=== PATIENT | female | born 1965 | race Caucasian/White ===

== ENCOUNTER 2018-12-28 15:00 | Emergency (ER) | payer MEDICARE, MEDICAID ==
[~2018-12-28] VITALS: Ht 170.2 cm; Wt 65.0 kg
[2018-12-28] MEDS ORDERED: PRAV80TA2 (16:45)
[2018-12-28] MEDS ORDERED: CLON-412 (16:45)
[2018-12-28] MEDS ORDERED: TRAZ-252 (16:45)
[2018-12-28] MEDS ORDERED: OYST500T12 (16:45)
[2018-12-28] MEDS ORDERED: TOPI50TA9 (16:45)
[2018-12-28] MEDS ORDERED: OXYB10TA (16:45)
[2018-12-28] MEDS ORDERED: LEVO112T2 (16:45)
[2018-12-28 18:12] VITALS: BP 165/107
--- NOTE | 2018-12-29 15:30 | ECGEPIP ---
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
== END 2018-12-28 18:15 | disposition home or self-care (01) ==
LOC: M ED 15:00
DX: F43.0 Acute stress reaction (principal); F19.20 Other psychoactive substance dependence, uncomplicated; F32.9 Major depressive disorder, single episode, unspecified; Z88.0 Allergy status to penicillin; Z88.5 Allergy status to narcotic agent; Z88.8 Allergy status to other drugs, medicaments and biological substances; Z88.6 Allergy status to analgesic agent; Z79.899 Other long term (current) drug therapy

== ENCOUNTER 2018-12-31 16:49 | Inpatient (IN) | payer MEDICARE, MEDICAID ==
[~2018-12-31] VITALS: Ht 170.2 cm; Wt 65.5 kg
[~2018-12-31 16:49] MED LIST: CLON-412; LEVO112T2; OXYB10TA; OYST500T12; PRAV80TA2; TOPI50TA9; TRAZ-252
[2018-12-31 17:56] LABS: HEMOGLOBIN 13.5 g/dl (12.0-15.5); MEAN CORPUSCULAR HEMOGLOBIN 31.5 pg (27.0-33.0); MEAN CORPUSCULAR HGB CONC 33.8 g/dl (32.0-36.5); MEAN CORPUSCULAR VOLUME 93.5 fl (80.0-96.0); PLATELET COUNT, AUTOMATED 315 10^3/uL (150-450); RED BLOOD COUNT 4.28 10^6/uL (4.00-5.40)
[2018-12-31 18:26] LABS: AMPHETAMINES LEVEL URINE NEGATIVE (NEGATIVE); BARBITURATES URINE NEGATIVE (NEGATIVE); BENZODIAZEPINES URINE NEGATIVE (NEGATIVE); CANNABINOIDS URINE NEGATIVE (NEGATIVE); COCAINE METABOLITE URINE NEGATIVE (NEGATIVE); METHADONE URINE NEGATIVE (NEGATIVE); OPIATES URINE NEGATIVE (NEGATIVE); PHENCYCLIDINE URINE NEGATIVE (NEGATIVE)
[2018-12-31 18:27] LABS: HCG, SERUM QUALITATIVE NEGATIVE (NEGATIVE)
[2018-12-31 18:53] LABS: ACETAMINOPHEN LEVEL < 2.0 UG/ML (10.0-30.0); ALBUMIN 3.8 GM/DL (3.2-5.2); ALT/SGPT 17 U/L (12-78); BILIRUBIN,DIRECT 0.2 MG/DL (0.0-0.2); BILIRUBIN,TOTAL 0.6 MG/DL (0.2-1.0); BLOOD UREA NITROGEN 14 MG/DL (7-18); CALCIUM LEVEL 8.6 MG/DL (8.5-10.1); CARBON DIOXIDE LEVEL 25 MEQ/L (21-32); CHLORIDE LEVEL 113 MEQ/L (98-107); CREATININE FOR GFR 0.94 MG/DL (0.55-1.30); GLOMERULAR FILTRATION RATE > 60.0 (>51); GLUCOSE, FASTING 75 MG/DL (70-100); POTASSIUM SERUM 4.4 MEQ/L (3.5-5.1); SALICYLATE LEVEL < 1.7 MG/DL (5.0-30.0); SODIUM LEVEL 144 MEQ/L (136-145); THYROID STIMULATING HORMONE 0.567 uIU/ML (0.358-3.740)
[2018-12-31 18:54] LABS: ETHYL ALCOHOL (ETHANOL) < 0.003 % (0.000-0.010)
[2018-12-31] MEDS ORDERED: METOPROLOL SUCC *XL* 25MG TAB (TopROL *XL*) PO ONE (22:00)
[2018-12-31] MEDS ORDERED: METO1TAB32 (22:00)
[2018-12-31] MEDS ORDERED: PRAVASTATIN 20 MG TAB PO ONE (22:00)
[2018-12-31] MEDS ORDERED: traZODone 50 MG TAB PO ONE (22:00)
[2018-12-31] MEDS ORDERED: ACETAMINOPHEN TAB 650MG DOSE (2X325MG) PO ONE (22:45)
[2019-01-01] MEDS ORDERED: CLON-412 PO (04:06)
[2019-01-01] MEDS ORDERED: CALC500T44 PO (04:06)
[2019-01-01] MEDS ORDERED: NEXI40CA PO (04:06)
[2019-01-01] MEDS ORDERED: OXYB10TA PO (04:06)
[2019-01-01] MEDS ORDERED: LISI-542 PO (04:06)
[2019-01-01] MEDS ORDERED: SYNT112T2 PO (04:06)
[2019-01-01] MEDS ORDERED: FLON1SPR (04:06)
[2019-01-01] MEDS ORDERED: PRAV80TA2 PO (04:06)
[2019-01-01] MEDS ORDERED: VOLT1GEL15 TOP (04:06)
[2019-01-01] MEDS ORDERED: GABA-845 PO (04:06)
[2019-01-01] MEDS ORDERED: METO1TAB32 PO (04:06)
[2019-01-01] MEDS ORDERED: TOPI50TA9 PO (04:06)
[2019-01-01] MEDS ORDERED: TRAZ-252 PO (04:06)
--- NOTE | 2019-01-01 05:45 | ECGEPIP ---
[facility] - ED Test Date: 2018-12-31 Pat Name: PARDEEP VELEZ Department: Room: - Gender: Female Radio Program Checker: : 1965 Requested By: MARCO A DONG Order Number: [id number] Reading MD: Sekou Munguia Measurements Intervals Lane Rate: 53 P: 25 TN: 117 QRS: 51 QRSD: 88 T: 20 QT: 471 QTc: 443 Interpretive Statements SINUS BRADYCARDIA WITH SINUS ARRHYTHMIA WITH SHORT TN INTERVAL NSTTW ABNORMALITIES SIMILAR TO 12/28/18 Electronically Signed on 01-01-2019 5:45:12 EDT by Sekou Munguia
[2019-01-01] MEDS: VITAMIN D (CHOLECALCIFEROL) 400 INTERNATIONAL UNITS TAB PO SCH ×2 (09:00→20:32)
[2019-01-01] MEDS: OYSTER SHELL CALCIUM 500 MG TAB PO SCH ×2 (09:00→20:32)
[2019-01-01] MEDS: TOPIRAMATE (TopAMAX) 25 MG TAB PO SCH ×2 (09:00→20:31)
[2019-01-01] MEDS ORDERED: traZODone 50 MG TAB PO PRN (12:15)
[2019-01-01] MEDS ORDERED: FLUTICASONE PROP 0.05% NASAL SPRAY 16 GM (FLONASE) PRN (12:15)
[2019-01-01] MEDS ORDERED: MOM 30ML SUSPENSION UDC PO PRN (12:15)
[2019-01-01] MEDS ORDERED: MAALOX 30 ML SUSP *UDC PO PRN (12:15)
[2019-01-01 13:42] VITALS: BP 141/94
[2019-01-01] MEDS: GABAPENTIN 400 MG CAP PO SCH ×2 (15:47→20:31)
[2019-01-01] MEDS: PANTOPRAZOLE 40MG TAB (PROTONIX) PO SCH (16:12)
[2019-01-01] MEDS: oxyBUTYnin *DITROPAN XL* 5 MG TABCR PO SCH (16:13)
[2019-01-01] MEDS: LEVOTHYROXINE 112MCG TABLET (0.112MG) PO SCH (16:13)
[2019-01-01] MEDS: cloNIDine 0.1 MG TAB PO SCH (16:13)
--- NOTE | 2019-01-01 17:01 | HPEPDOC ---
General Date of Admission Jan 01, 2019 at 12:15 Date of Service: Jan 01, 2019 Attending Physician: NALDO QUEEN MD Chief Complaint The patient is a 53-year-old female admitted with a reason for visit of Unspecified Depressive Disorder. History of Present Illness Aaron Pollock is a 53-year-old female, past medical history significant for depression and prior suicidal ideation.. Patient was admitted on account of suicidal ideation. Attempts to obtain information concerning history of presenting illness from patient was unsuccessful. She was able to tell me she was hospitalized due to polysubstance abuse and withdrawal problems. Patient answered affirmative to every question about review of systems. She admits to chills, denies fever, complains of abdominal pain, anorexia, weakness Home Medications Scheduled Calcium Carbonate/Vitamin D3 (Calcium 500-Vit D3 200 Tablet) 1 Each Tablet, 1 TAB PO BID, (Reported) Clonidine HCl (Clonidine HCl) 0.1 Mg Tablet, 0.1 MG PO DAILY, (Reported) Esomeprazole Magnesium (Nexium) 40 Mg Capsule.dr, 40 MG PO DAILY, (Reported) Gabapentin (Gabapentin) 400 Mg Capsule, 400 MG PO BID, (Reported) Levothyroxine Sodium (Synthroid) 112 Mcg Tablet, 112 MCG PO DAILY, (Reported) Lisinopril (Lisinopril) 5 Mg Tablet, 5 MG PO QHS, (Reported) Metoprolol Succinate (Metoprolol Succinate) 25 Mg Tab.er.24h, 25 MG PO QHS, (Reported) Oxybutynin Chloride (Oxybutynin Chloride ER) 10 Mg Tab.er.24, 10 MG PO DAILY, (Reported) Pravastatin Sodium (Pravastatin Sodium) 80 Mg Tablet, 80 MG PO QHS, (Reported) Topiramate (Topiramate) 50 Mg Tablet, 50 MG PO BID, (Reported) Trazodone HCl (Trazodone HCl) 50 Mg Tablet, 75 MG PO QHS, (Reported) Scheduled PRN Diclofenac Sodium (Voltaren) 100 Gm Gel..gram., 1 DOSE TOP QID PRN for PAIN, (Reported) USES ON HANDS, HIPS, AND KNEES Fluticasone Propionate (Flonase Allergy Relief) 9.9 Ml [place].susp, 2 SPRAY NA DAILY PRN for NASAL CONGESTION, (Reported) Allergies Coded Allergies: Penicillins (Verified Allergy, Intermediate, hives, 12/28/18) fentanyl (Verified Allergy, Mild, itchy, 12/28/18) hydromorphone (Verified Allergy, Mild, itchy, 12/28/18) morphine (Verified Allergy, Mild, itchy, 12/28/18) NSAIDS (Non-Steroidal Anti-Inflamma (Verified Adverse Reaction, Intermediate, gi bleed, 12/28/18) aspirin (Verified Adverse Reaction, Intermediate, gi bleed, 12/28/18) celecoxib (Verified Adverse Reaction, Intermediate, gi bleed, 12/28/18) codeine (Verified Adverse Reaction, Mild, upset stomach, 12/28/18) methadone (Verified Adverse Reaction, Mild, confusion, 12/28/18) Past Medical History Medical History Hypertension Hypothyroidism Depression Anxiety Surgical History Bilateral knee surgery Appendectomy. Shoulder surgery Dorsal stimulator placement Social History * Smoker: Denies Alcohol: Denies Drugs: denies A-FIB/CHADSVASC A-FIB History Current/History of A-Fib/PAF?: No Current PO Anticoag Therapy: No Review of Systems Other systems Review of history was very questionable given patient's mental state Physical Examination Other physical findings GENERAL: NAD SKIN : Warm, dry intact HEENT: Atraumatic, normocephalic, PERRL, moist mucous membrane CARDIOVASCULAR: Regular rate and rhythm, S1S2, no JVD, no edema, distal pulses + and palpable RESP: CTAB, no accessory muscle use noted ABDOMEN: BS+ non distended +tender MS: no joint deformities NEURO: Alert to self and place, CN2-12 grossly intact PSYCH: no anxiety or agitation Vital Signs Vital Signs Date Time Temp Pulse Resp B/P (MAP) Pulse Ox O2 Delivery O2 Flow Rate FiO2 01/01/19 16:13 138/98 01/01/19 13:42 99.0 81 18 98 01/01/19 12:40 Room Air Laboratory Data Labs 24H Laboratory Tests 2 12/31/18 17:32: Nucleated Red Blood Cells % (auto) 0.0, Anion Gap 6L, Glomerular Filtration Rate > 60.0, Calcium Level 8.6, Aspartate Amino Transf (AST/SGOT) 10, Alanine Aminotransferase (ALT/SGPT) 17, Alkaline Phosphatase 38L, Total Bilirubin 0.6, Direct Bilirubin 0.2, Total Protein 7.0, Albumin 3.8, Albumin/Globulin Ratio 1.19, Thyroid Stimulating Hormone (TSH) 0.567, Human Chorionic Gonadotropin, Q ual NEGATIVE, Salicylates Level < 1.7L, Acetaminophen Level < 2.0L, Ethyl Alcohol Level < 0.003 12/31/18 17:41: Urine Amphetamines Screen NEGATIVE, Urine Benzodiazepines Screen NEGATIVE, Urine Opiates Screen NEGATIVE, Urine Methadone Screen NEGATIVE, Urine Barbiturates Screen NEGATIVE, Urine Phencyclidine Screen NEGATIVE, Urine Cocaine Metabolite Screen NEGATIVE, Urine Cannabinoids Screen NEGATIVE CBC/BMP Laboratory Tests 12/31/18 17:32 Red Blood Count 4.28, Mean Corpuscular Volume 93.5, Mean Corpuscular Hemoglobin 31.5, Mean Corpuscular Hemoglobin Concent 33.8, Red Cell Distribution Width 12.5 Assessment/Plan Hypertension Hypothyroidism Chronic back pain. Suicidal ideation Assessment and plan Patient has underlying medical issues with hypertension, hypothyroidism, chronic back pain Out of underlying comorbidities, stable at this time requiring no acute intervention for management Management of primary mental health problems by primary team. Reconsult medical team as needed Plan / VTE VTE Prophylaxis Ordered?: No VTE Exclusion Mechanical Proph: Low Risk for VTE CHERYL SOLIS BUCKLE ASSEMBLER Jan 01, 2019 17:01
[2019-01-01 18:11] VITALS: BP 128/83
[2019-01-01] MEDS: PRAVASTATIN 20 MG TAB PO SCH (20:31)
[2019-01-01] MEDS: METOPROLOL SUCC *XL* 25MG TAB (TopROL *XL*) PO SCH (20:32)
[2019-01-01] MEDS: LISINOPRIL 5 MG TAB PO SCH (20:33)
[2019-01-01] MEDS ORDERED: GABAPENTIN 400 MG CAP PO SCH (21:00)
[2019-01-02] MEDS: LEVOTHYROXINE 112MCG TABLET (0.112MG) PO SCH ×2 (06:00→06:56)
[2019-01-02 06:32] VITALS: BP 113/70
[2019-01-02] MEDS: cloNIDine 0.1 MG TAB PO SCH (08:53)
[2019-01-02] MEDS: OYSTER SHELL CALCIUM 500 MG TAB PO SCH ×2 (08:53→21:18)
[2019-01-02] MEDS: GABAPENTIN 400 MG CAP PO SCH ×2 (08:53→21:18)
[2019-01-02] MEDS: oxyBUTYnin *DITROPAN XL* 5 MG TABCR PO SCH (08:53)
[2019-01-02] MEDS: VITAMIN D (CHOLECALCIFEROL) 400 INTERNATIONAL UNITS TAB PO SCH ×2 (08:54→21:18)
[2019-01-02] MEDS: TOPIRAMATE (TopAMAX) 25 MG TAB PO SCH ×2 (08:54→21:19)
[2019-01-02] MEDS: PANTOPRAZOLE 40MG TAB (PROTONIX) PO SCH (08:54)
[2019-01-02] MEDS ORDERED: FLUoxetine 10 MG CAP PO ONE (11:15)
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
[2019-01-02] MEDS: hydrOXYzine 50 MG TAB PO PRN (17:53)
[2019-01-02 18:00] VITALS: BP 131/70
[2019-01-02] MEDS: traZODone 50 MG TAB PO SCH (21:17)
[2019-01-02] MEDS: PILL CUTTER 1 EACH XX PRN (21:17)
[2019-01-02] MEDS: PRAVASTATIN 20 MG TAB PO SCH (21:18)
[2019-01-02] MEDS: METOPROLOL SUCC *XL* 25MG TAB (TopROL *XL*) PO SCH (21:19)
[2019-01-02] MEDS: LISINOPRIL 5 MG TAB PO SCH (21:20)
[2019-01-03] MEDS: LEVOTHYROXINE 112MCG TABLET (0.112MG) PO SCH ×2 (06:00→06:53)
[2019-01-03 06:33] VITALS: BP 102/80
[2019-01-03] MEDS: PILL CUTTER 1 EACH XX PRN (08:35)
[2019-01-03] MEDS: VITAMIN D (CHOLECALCIFEROL) 400 INTERNATIONAL UNITS TAB PO SCH ×2 (08:35→21:31)
[2019-01-03] MEDS: OYSTER SHELL CALCIUM 500 MG TAB PO SCH ×2 (08:36→21:30)
[2019-01-03] MEDS: FLUoxetine 10 MG CAP PO SCH (08:36)
[2019-01-03] MEDS: PANTOPRAZOLE 40MG TAB (PROTONIX) PO SCH (08:36)
[2019-01-03] MEDS: TOPIRAMATE (TopAMAX) 25 MG TAB PO SCH ×2 (08:36→21:30)
[2019-01-03] MEDS: cloNIDine 0.1 MG TAB PO SCH (08:36)
[2019-01-03] MEDS: GABAPENTIN 400 MG CAP PO SCH ×2 (08:36→21:30)
[2019-01-03] MEDS: oxyBUTYnin *DITROPAN XL* 5 MG TABCR PO SCH (08:36)
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
[2019-01-03 10:17] LABS: ALBUMIN 3.5 GM/DL (3.2-5.2); ALT/SGPT 15 U/L (12-78); BILIRUBIN,TOTAL 0.6 MG/DL (0.2-1.0); BLOOD UREA NITROGEN 12 MG/DL (7-18); CALCIUM LEVEL 8.6 MG/DL (8.5-10.1); CARBON DIOXIDE LEVEL 25 MEQ/L (21-32); CHLORIDE LEVEL 110 MEQ/L (98-107); CHOLESTEROL LEVEL 119 MG/DL (<200); CHOLESTEROL RISK RATIO 2.428 (<5); CREATININE FOR GFR 0.84 MG/DL (0.55-1.30); GLOMERULAR FILTRATION RATE > 60.0 (>51); GLUCOSE, FASTING 84 MG/DL (70-100); HDL CHOLESTEROL 49 MG/DL (>40); LDL CHOLESTEROL 47 MG/DL (<100); NON-HDL-C 70 MG/DL; POTASSIUM SERUM 3.8 MEQ/L (3.5-5.1); SODIUM LEVEL 144 MEQ/L (136-145); TOTAL PROTEIN 6.5 GM/DL (6.4-8.2); TRIGLYCERIDES LEVEL 113 MG/DL (<150)
[2019-01-03 18:00] VITALS: BP 117/73
[2019-01-03] MEDS: QUEtiapine FUMARATE 25 MG TAB PO SCH (21:30)
[2019-01-03] MEDS: METOPROLOL SUCC *XL* 25MG TAB (TopROL *XL*) PO SCH (21:30)
[2019-01-03] MEDS: PRAVASTATIN 20 MG TAB PO SCH (21:30)
[2019-01-03] MEDS: traZODone 50 MG TAB PO SCH (21:31)
[2019-01-03] MEDS: LISINOPRIL 5 MG TAB PO SCH (21:31)
[2019-01-04] MEDS: LEVOTHYROXINE 112MCG TABLET (0.112MG) PO SCH (06:42)
[2019-01-04 06:49] VITALS: BP 108/68
[2019-01-04] MEDS: PANTOPRAZOLE 40MG TAB (PROTONIX) PO SCH (08:59)
[2019-01-04] MEDS: GABAPENTIN 400 MG CAP PO SCH ×2 (08:59→20:48)
[2019-01-04] MEDS: FLUoxetine 10 MG CAP PO SCH (08:59)
[2019-01-04] MEDS: PILL CUTTER 1 EACH XX PRN (08:59)
[2019-01-04] MEDS: TOPIRAMATE (TopAMAX) 25 MG TAB PO SCH ×2 (08:59→20:49)
[2019-01-04] MEDS: oxyBUTYnin *DITROPAN XL* 5 MG TABCR PO SCH (09:00)
[2019-01-04] MEDS: VITAMIN D (CHOLECALCIFEROL) 400 INTERNATIONAL UNITS TAB PO SCH ×2 (09:00→20:49)
[2019-01-04] MEDS: OYSTER SHELL CALCIUM 500 MG TAB PO SCH ×2 (09:00→20:48)
[2019-01-04] MEDS: cloNIDine 0.1 MG TAB PO SCH (09:12)
--- NOTE | 2019-01-04 10:25 | MHIPNPDOC ---
[facility] Progress Note Progress Note DATE OF SERVICE: 01/04/19 HISTORY: Patient is a 53 -year-old , female, with a history of depression, substance abuse, and PTSD (per pt) and no previous admission [facility] who was brought to [facility] by state police after she told officer she needed help b/c she was suicidal per ED. Pt stated in ED that she has been depressed since the of her close friend/neighbor who in his apt in 2016 and was not found until 12 days later even though pt states she asked the landlord to check on him multiple times. States she came to [facility] ED on 12/28/18 and wanted help but "didn't say the right things" to get the help she wanted per ED. Pt stated in ED that she was at [facility] earlier in morning on the day seen in [facility] ED and was treated for dehydration with IV fluids then d/c. Pt stated she was walk from hospital to her aunts house and saw a state physics technical officer and decided to approach him and tell him she needed help and was suicidal per ED. Pt stated in ED that she felt her psychiatric meds weren't beneficial so she stopped her xanax, oxycodone, and paxil on the own w/o telling her provider at [facility]. Stated she was d/c by her therapist at [facility] earlier in December due to being told over the phone she was "too complicated" for the therapist w/o referral to another therapist per ED. She endorsed depression for months, pain medication abuse, and self starvation due to ther being "nothing to live for" and poor appetite in the ED. History gathered from Chart Review as pt not talk to me even though asked multiple times. VITAL SIGNS: See below. NEW TEST RESULTS: See below. ECG on admission: SINUS BRADYCARDIA WITH SINUS ARRHYTHMIA WITH SHORT HI INTERVAL NSTTW ABNORMALITIES CURRENT MEDICATIONS: See below. MENTAL STATUS EXAMINATION: General Appearance: well groomed, appears stated age Build: average, tall Demeanor: more withdrawn, preoccupied, fatigued Eye Contact: fair Activity: slowed Behavior: withdrawn, more psychomotor retardation Speech: slowed and slow to respond, minimal response, mostly just shake's head no when asked if she will eating or drink something Mood: very depressed Mood depressed Affect: very constricted, flat, inappropriate, psychomotor retardation, anhedonia, avolition Thought Process: slow, linear, illogical w/thought blocking and internal thought preoccupation especially regarding eating Thought Content (Delusions): denies hallucinations and delusions Thought Content (Other): thought block and preoccupation Thought Content (Aggressive): none reported Perception (Hallucinations): denies AVH Perception (Other): none reported Cognition (Impairment of): slowed Cognition(Intelligence Est.): average but functioning currently below average secondary thought blocking and preoccupation, starvation Oriented: Awake, Alert, Oriented times three Insight: very poor Judgment: very Poor Psychosis: denies DIAGNOSES: Major depressive d/o recurrent severe hx of opiate and benzodiazepine abuse R/O paxil withdrawal R/O eating d/o unspecified/anorexia nervosa ASSESSMENT:Pt seen and only nods head no when asked if she will start to eat some. Per nurse pt has only eaten a few bits of salad and a few sips of water since admission. Advised pt that will provide her with boost shakes for nutrition and she must drink as much as she can of most of the shakes or will have to eventually transfer her to medical floor for NG tube feedings that she will not be able to control as she has no capacity to make medical decisions for her self secondary poor cognitive status due to prolonged self starvation with thoughts of wanting to . Pt's has very low energy, cognitive ability, increased fatigue, very poor insight and judgement secondary prolonged starvation. Per treatment team pt has a family member with anorexia nervosa. She also stopped her paxil abruptly and now feels very depressed with continue passive SI thoughts of dying and wanting to although dose states she has a dog to live for when asked. Endorses psychomotor retardation, thought blocking, thought preoccupation (takes along time to understand what I've said or asked her and then respond due to overwhelming thoughts in her head), and fear of eati ng and gaining wt as wt lose has taken pressure and pain off her joints. Advised pt that I started her on prozac yesterday as it is a long acting, activating antidepressant, and advised her will start her on seroquel for improvement in thought preoccupation and appetite. MANAGEMENT PLAN: continue plan. pt to have follow-up with medicine for starvation affecting physical health. Nutrition consult for boost shakes tid. medications: topomax 50mg bid gabapentin 400mg bid trazodone 75mg qhs prn insomnia prozac 10mg daily vistaril 50mg q6hr prn anxiety. TIME SPENT: 30 minutes. Vital Signs Vital Signs Date Time Temp Pulse Resp B/P (MAP) Pulse Ox O2 Delivery O2 Flow Rate FiO2 01/04/19 09:12 120/89 01/04/19 06:49 98.5 59 12 01/01/19 13:42 98 01/01/19 12:40 Room Air Laboratory Data 24H Labs Laboratory Tests 2 01/03/19 09:33: Anion Gap 9, Glomerular Filtration Rate > 60.0, Blood Urea Nitrogen 12, Creatinine 0.84, Sodium Level 144, Potassium Level 3.8, Chloride Level 110H, Carbon Dioxide Level 25, Calcium Level 8.6, Aspartate Amino Transf (AST/SGOT) 6L, Alanine Aminotransferase (ALT/SGPT) 15, Alkaline Phosphatase 36L, Total Bilirubin 0.6, Triglycerides Level 113, LDL Cholesterol 47, Total Protein 6.5, Albumin 3.5, Albumin/Globulin Ratio 1.17, Total Cholesterol 119, Non-HDL Cholesterol (LDL + VLDL) 70, Total HDL Cholesterol 49, Cholesterol/HDL Ratio 2. 428 CBC/BMP Laboratory Tests 01/03/19 09:33 Calcium Level 8.6, Aspartate Amino Transf (AST/SGOT) 6 L, Alanine Aminotransferase (ALT/SGPT) 15, Alkaline Phosphatase 36 L, Total Bilirubin 0.6, Triglycerides Level 113, LDL Cholesterol 47, Total Protein 6.5, Albumin 3.5 Current Medications Current Medications Acetaminophen (Tylenol Tab) 650 mg Q6HP PRN PO HEADACHE or DISCOMFORT; Start 01/01/19 at 12:15 Al Hydrox/Mg Hydrox/Simethicone (Mylanta) 30 ml Q4HP PRN PO HEARTBURN/INDIGESTION; Start 01/01/19 at 12:15 Calcium Carbonate (Oscal) 500 mg BID PO Last administered on 01/04/19at 09:00; Start 01/01/19 at 09:00 Clonidine HCl (Catapres) 0.1 mg DAILY PO Last administered on 01/04/19at 09:12; Start 01/01/19 at 09:00 Fluoxetine HCl (PROzac) 10 mg DAILY PO Last administered on 01/04/19at 08:59; Start 01/03/19 at 09:00 Fluticasone Propionate (Flonase 0.05% Nasal [place]) 2 spray DAILY PRN NA NASAL CONGESTION; Start 01/01/19 at 12:15 Gabapentin (Neurontin) 400 mg BID PO Last administered on 01/04/19 08:59; Start 01/01/19 at 09:00 Gabapentin (Neurontin) 400 mg BID PO ; Start 01/01/19 at 21:00; Stop 01/01/19 at 21:00; Status DC Home Med (Med Rec Complete!) ASDIRECTED XX ; Start 01/01/19 at 04:15; Stop 01/01/19 at 04:16; Status DC Hydroxyzine HCl (Atarax) 50 mg Q6HP PRN PO ANXIETY/AGITATION Last administered on 01/02/19 17:53; Start 01/02/19 at 11:15 Levothyroxine Sodium (Synthroid) 112 mcg DAILY@0600 PO Last administered on 01/04/19 06:42; Start 01/01/19 at 06:00 Lisinopril (Prinivil) 5 mg QHS PO Last administered on 01/03/19 21:31; Start 01/01/19 at 21:00 Magnesium Hydroxide (Milk Of Magnesia) 30 ml DAILYPRN PRN PO CONSTIPATION; Start 01/01/19 at 12:15 Metoprolol Succinate (TopROL XL) 25 mg QHS PO Last administered on 01/03/19 21:30; Start 01/01/19 at 21:00 Oxybutynin Chloride (Ditropan Xl) 10 mg DAILY PO Last administered on 01/04/19 09:00; Start 01/01/19 at 09:00 Pantoprazole Sodium (Protonix) 40 mg DAILY PO Last administered on 01/04/19 08:59; Start 01/01/19 at 09:00 Pravastatin Sodium (Pravachol) 80 mg QHS PO Last administered on 01/03/19 21:30; Start 01/01/19 at 21:00 Quetiapine Fumarate (SEROquel) 25 mg QHS PO Last administered on 01/03/19 21:30; Start 01/03/19 at 21:00 Topiramate (TopAMAX) 50 mg BID PO Last administered on 01/04/19 08:59; Start 01/01/19 at 09:00 Trazodone HCl (Desyrel) 50 mg QHSP PRN PO INSOMNIA Last administered on 01/01/19at 20:32; Start 01/01/19 at 12:15; Stop 01/02/19 at 11:15; Status DC Trazodone HCl (Desyrel) 75 mg QHS PO Last administered on 01/03/19at 21:31; Start 01/02/19 at 21:00 Vitamin D (Vitamin D) 200 units BID PO Last administered on 01/04/19at 09:00; Start 01/01/19 at 09:00 Allergies Coded Allergies: Penicillins (Verified Allergy, Intermediate, hives, 12/28/18) fentanyl (Verified Allergy, Mild, itchy, 12/28/18) hydromorphone (Verified Allergy, Mild, itchy, 12/28/18) morphine (Verified Allergy, Mild, itchy, 12/28/18) NSAIDS (Non-Steroidal Anti-Inflamma (Verified Adverse Reaction, Intermediate, gi bleed, 12/28/18) aspirin (Verified Adverse Reaction, Intermediate, gi bleed, 12/28/18) celecoxib (Verified Adverse Reaction, Intermediate, gi bleed, 12/28/18) codeine (Verified Adverse Reaction, Mild, upset stomach, 12/28/18) methadone (Verified Adverse Reaction, Mild, confusion, 12/28/18) SUNSHINE CADET DO Jan 04, 2019 9:31 am
[2019-01-04 18:07] VITALS: BP 108/73
--- NOTE | 2019-01-04 19:13 | IPNPDOC ---
Subjective Date Seen The patient was seen on 01/04/19. Subjective Chief Complaint/HPI 53f admitted to [facility] for depression and ?psychosis, hx of thyroid, htn, and esophageal motility disorder. Asked to follow up as pt is refusing to eat or drink. Pt seen in her room, in bed with a tray of food in front of her. Not making eye contact. Answering questions occasionally. When I ask she does not outright refuse to eat or drink, but tells me the food doesnt taste good and it is hard to swallow. When asked if it would help to have different options or softer foods she declines. General: Reports: ROS Unobtainable Objective Physical Examination General Exam: Positive: Alert, Other (very thin); Negative: Cooperative ENT Exam: Negative: Mucous membr. moist/pink Chest Exam: Positive: Clear to auscultation, Normal air movement Heart Exam: Positive: Rate Normal, Normal S1, Normal S2, Murmurs Abdomen Exam: Positive: Normal bowel sounds, Soft; Negative: Tenderness Extremity Exam: Positive: Normal pulses; Negative: Clubbing, Cyanosis, Edema Skin Exam: Negative: Rash, Breakdown Neuro Exam: Positive: Normal Gait, Normal Speech, Cranial Nerves 3-12 NL, Reflexes 2+ Psych Exam: Positive: Oriented x 3, Other (hesitant to answer questions, suspicious); Negative: Mental status NL, Mood NL Assessment /Plan Assessment 53f admitted for depression depression/psychosis per primary psych team thyroid continue synthroid at current dose stable htn can continue clonidine and toprol would hold lisinopril and avoid diuretics while she is not drinking much poor oral intake seems to be more psychiatric than from a swallowing issue as she is unwilling to try labs drawn yesterday without significant dehydration or protein malnutrition I would not suggest hydration/nutriton via iv or ng tube as of yet would continue to monitor her intake, weight, and CMP every few days if labs become significantly deranged or clinical status changes (hypotension, tachycardia, mental status changes) then would consider Plan/VTE VTE Prophylaxis Ordered?: No VTE Exclusion Mechanical Proph: Low Risk for VTE VS, I&O, 24H, Fishbone Vital Signs/I&O Vital Signs Date Time Temp Pulse Resp B/P (MAP) Pulse Ox O2 Delivery O2 Flow Rate FiO2 01/04/19 18:07 98.6 92 16 108/73 (85) 01/01/19 13:42 98 01/01/19 12:40 Room Air PAULETTE BOCANEGRA MD Jan 04, 2019 19:13
[2019-01-04] MEDS: traZODone 50 MG TAB PO SCH (20:49)
[2019-01-04] MEDS: QUEtiapine FUMARATE 25 MG TAB PO SCH (20:49)
[2019-01-04] MEDS: PRAVASTATIN 20 MG TAB PO SCH (20:49)
[2019-01-04] MEDS: METOPROLOL SUCC *XL* 25MG TAB (TopROL *XL*) PO SCH (20:56)
[2019-01-05] MEDS: LEVOTHYROXINE 112MCG TABLET (0.112MG) PO SCH (05:52)
[2019-01-05 06:36] VITALS: BP 112/80
--- NOTE | 2019-01-05 09:57 | MHIPNPDOC ---
[facility] Progress Note Progress Note DATE OF SERVICE: 01/05/19 HISTORY: Patient is a 53 -year-old , female, with a history of depression, substance abuse, and PTSD (per pt) and no previous admission [facility] who was brought to [facility] by state police after she told officer she needed help b/c she was suicidal per ED. Pt stated in ED that she has been depressed since the of her close friend/neighbor who in his apt in 2016 and was not found until 12 days later even though pt states she asked the landlord to check on him multiple times. States she came to [facility] ED on 12/28/18 and wanted help but "didn't say the right things" to get the help she wanted per ED. Pt stated in ED that she was at [facility] earlier in morning on the day seen in [facility] ED and was treated for dehydration with IV fluids then d/c. Pt stated she was walk from hospital to her aunts house and saw a state enforcement safety officer and decided to approach him and tell him she needed help and was suicidal per ED. Pt stated in ED that she felt her psychiatric meds weren't beneficial so she stopped her xanax, oxycodone, and paxil on the own w/o telling her provider at [facility]. Stated she was d/c by her therapist at [facility] earlier in December due to being told over the phone she was "too complicated" for the therapist w/o referral to another therapist per ED. She endorsed depression for months, pain medication abuse, and self starvation due to ther being "nothing to live for" and poor appetite in the ED. History gathered from Chart Review as pt not talk to me even though asked multiple times. VITAL SIGNS: See below. NEW TEST RESULTS: See below. ECG on admission: SINUS BRADYCARDIA WITH SINUS ARRHYTHMIA WITH SHORT IN INTERVAL NSTTW ABNORMALITIES CURRENT MEDICATIONS: See below. MENTAL STATUS EXAMINATION: General Appearance: well groomed, appears stated age Build: average, tall Demeanor: more withdrawn, preoccupied, fatigued Eye Contact: fair Activity: slowed Behavior: withdrawn, more psychomotor retardation Speech: slowed and slow to respond, minimal response, mostly just shake's head no when asked if she will eating or drink something Mood: very depressed Mood depressed Affect: very constricted, flat, inappropriate, psychomotor retardation, anhedonia, avolition Thought Process: slow, linear, illogical w/thought blocking and internal thought preoccupation especially regarding eating Thought Content (Delusions): denies hallucinations and delusions Thought Content (Other): thought block and preoccupation Thought Content (Aggressive): none reported Perception (Hallucinations): denies AVH Perception (Other): none reported Cognition (Impairment of): slowed Cognition(Intelligence Est.): average but functioning currently below average secondary thought blocking and preoccupation, starvation Oriented: Awake, Alert, Oriented times three Insight: very poor Judgment: very Poor Psychosis: denies DIAGNOSES: Major depressive d/o recurrent severe hx of opiate and benzodiazepine abuse R/O paxil withdrawal R/O eating d/o unspecified/anorexia nervosa ASSESSMENT:Pt seen and states "everyone is messing with my head... asking too many questions" while holding a menu sheet somewhat filled out. She only nods head no when asked if she will start to eat some. Appears to have possibly ea ten a few bits of pudding and drank a few sips of juice this morning. Per nurse pt has only eaten very, very little. Otherwise no change from yesterday's note: "Pt also has boost shakes for nutrition and she must drink as much as she can of most of the shakes or will have to eventually transfer her to medical floor for NG tube feedings that she will not be able to control as she has no capacity to make medical decisions for her self secondary poor cognitive status due to prolonged self starvation with thoughts of wanting to . Pt's has very low energy, cognitive ability, increased fatigue, very poor insight and judgement secondary prolonged starvation. Per treatment team pt has a family member with anorexia nervosa." She continues to endorse severe depression with continue passive SI thoughts of dying and wanting to although dose states she has a dog to live for when asked. Endorses psychomotor retardation, thought blocking, thought preoccupation (takes along time to understand what I've said or asked her and then respond due to overwhelming thoughts in her head), and fear of eating and gaining wt as wt lose has taken pressure and pain off her joints. Advised pt that I started her on prozac yesterday as it is a long acting, activating antidepressant, and advised her will start her on seroquel for improvement in thought preoccupation and appetite. MANAGEMENT PLAN: continue plan. pt to have follow-up with medicine for starvation affecting physical health. d/c topomax as has a side effect of decr ease appetite. medications: topomax 50mg bid gabapentin 400mg bid trazodone 75mg qhs prn insomnia prozac 10mg daily vistaril 50mg q6hr prn anxiety. boost shakes tid TIME SPENT: 30 minutes. Vital Signs Vital Signs Date Time Temp Pulse Resp B/P (MAP) Pulse Ox O2 Delivery O2 Flow Rate FiO2 01/05/19 06:36 97.7 95 18 112/80 (91) 01/01/19 13:42 98 01/01/19 12:40 Room Air Current Medications Current Medications Acetaminophen (Tylenol Tab) 650 mg Q6HP PRN PO HEADACHE or DISCOMFORT; Start 01/01/19 at 12:15 Al Hydrox/Mg Hydrox/Simethicone (Mylanta) 30 ml Q4HP PRN PO HEARTBURN/INDIGESTION; Start 01/01/19 at 12:15 Calcium Carbonate (Oscal) 500 mg BID PO Last administered on 01/04/19at 20:48; Start 01/01/19 at 09:00 Clonidine HCl (Catapres) 0.1 mg DAILY PO Last administered on 01/04/19at 09:12; Start 01/01/19 at 09:00 Fluoxetine HCl (PROzac) 10 mg DAILY PO Last administered on 01/04/19at 08:59; Start 01/03/19 at 09:00 Fluticasone Propionate (Flonase 0.05% Nasal [place]) 2 spray DAILY PRN NA NASAL CONGESTION; Start 01/01/19 at 12:15 Gabapentin (Neurontin) 400 mg BID PO Last administered on 01/04/19at 20:48; Start 01/01/19 at 09:00 Gabapentin (Neurontin) 400 mg BID PO ; Start 01/01/19 at 21:00; Stop 01/01/19 at 21:00; Status DC Home Med (Med Rec Complete!) ASDIRECTED XX ; Start 01/01/19 at 04:15; Stop 01/01/19 at 04:16; Status DC Hydroxyzine HCl (Atarax) 50 mg Q6HP PRN PO ANXIETY/AGITATION Last administered on 01/02/19at 17:53; Start 01/02/19 at 11:15 Levothyroxine Sodium (Synthroid) 112 mcg DAILY@0600 PO Last administered on 01/05/19 05:52; Start 01/01/19 at 06:00 Lisinopril (Prinivil) 5 mg QHS PO Last administered on 01/03/19 21:31; Start 01/01/19 at 21:00; Stop 01/04/19 at 19:09; Status DC Magnesium Hydroxide (Milk Of Magnesia) 30 ml DAILYPRN PRN PO CONSTIPATION; Start 01/01/19 at 12:15 Metoprolol Succinate (TopROL XL) 25 mg QHS PO Last administered on 01/04/19 20:56; Start 01/01/19 at 21:00 Oxybutynin Chloride (Ditropan Xl) 10 mg DAILY PO Last administered on 01/04/19 09:00; Start 01/01/19 at 09:00 Pantoprazole Sodium (Protonix) 40 mg DAILY PO Last administered on 01/04/19 08:59; Start 01/01/19 at 09:00 Pravastatin Sodium (Pravachol) 80 mg QHS PO Last administered on 01/04/19 20:49; Start 01/01/19 at 21:00 Quetiapine Fumarate (SEROquel) 25 mg QHS PO Last administered on 01/04/19 20:49; Start 01/03/19 at 21:00 Topiramate (TopAMAX) 50 mg BID PO Last administered on 01/04/19 20:49; Start 01/01/19 at 09:00 Trazodone HCl (Desyrel) 50 mg QHSP PRN PO INSOMNIA Last administered on 01/01/19 20:32; Start 01/01/19 at 12:15; Stop 01/02/19 at 11:15; Status DC Trazodone HCl (Desyrel) 75 mg QHS PO Last administered on 01/04/19 20:49; Start 01/02/19 at 21:00 Vitamin D (Vitamin D) 200 units BID PO Last administered on 01/04/19 20:49; Start 01/01/19 at 09:00 Allergies Coded Allergies: Penicillins (Verified Allergy, Intermediate, hives, 12/28/18) fentanyl (Verified Allergy, Mild, itchy, 12/28/18) hydromorphone (Verified Allergy, Mild, itchy, 12/28/18) morphine (Verified Allergy, Mild, itchy, 12/28/18) NSAIDS (Non-Steroidal Anti-Inflamma (Verified Adverse Reaction, Intermediate, gi bleed, 12/28/18) aspirin (Verified Adverse Reaction, Intermediate, gi bleed, 12/28/18) celecoxib (Verified Adverse Reaction, Intermediate, gi bleed, 12/28/18) codeine (Verified Adverse Reaction, Mild, upset stomach, 12/28/18) methadone (Verified Adverse Reaction, Mild, confusion, 12/28/18) SUNSHINE CADET DO Jan 05, 2019 9:57 am
[2019-01-05] MEDS: PANTOPRAZOLE 40MG TAB (PROTONIX) PO SCH (10:51)
[2019-01-05] MEDS: OYSTER SHELL CALCIUM 500 MG TAB PO SCH ×2 (10:51→20:31)
[2019-01-05] MEDS: GABAPENTIN 400 MG CAP PO SCH ×2 (10:51→20:31)
[2019-01-05] MEDS: VITAMIN D (CHOLECALCIFEROL) 400 INTERNATIONAL UNITS TAB PO SCH ×2 (10:51→20:31)
[2019-01-05] MEDS: oxyBUTYnin *DITROPAN XL* 5 MG TABCR PO SCH (10:51)
[2019-01-05] MEDS: cloNIDine 0.1 MG TAB PO SCH (10:52)
[2019-01-05] MEDS: FLUoxetine 10 MG CAP PO SCH (10:52)
[2019-01-05 14:10] LABS: ALBUMIN 4.1 GM/DL (3.2-5.2); ALT/SGPT 16 U/L (12-78); BILIRUBIN,TOTAL 0.6 MG/DL (0.2-1.0); BLOOD UREA NITROGEN 14 MG/DL (7-18); CALCIUM LEVEL 9.4 MG/DL (8.5-10.1); CARBON DIOXIDE LEVEL 19 MEQ/L (21-32); CHLORIDE LEVEL 111 MEQ/L (98-107); GLOMERULAR FILTRATION RATE > 60.0 (>51); GLUCOSE, FASTING 62 MG/DL (70-100); PHOSPHORUS LEVEL 3.5 MG/DL (2.5-4.9); POTASSIUM SERUM 3.9 MEQ/L (3.5-5.1); SODIUM LEVEL 145 MEQ/L (136-145); TOTAL PROTEIN 7.7 GM/DL (6.4-8.2)
[2019-01-05 18:00] VITALS: BP 140/78
[2019-01-05] MEDS: QUEtiapine FUMARATE 25 MG TAB PO SCH (20:31)
[2019-01-05] MEDS: PRAVASTATIN 20 MG TAB PO SCH (20:31)
[2019-01-05] MEDS: traZODone 50 MG TAB PO SCH (20:31)
[2019-01-05] MEDS: METOPROLOL SUCC *XL* 25MG TAB (TopROL *XL*) PO SCH (20:39)
[2019-01-06] MEDS: LEVOTHYROXINE 112MCG TABLET (0.112MG) PO SCH (05:34)
[2019-01-06 06:00] VITALS: BP 131/85
[2019-01-06] MEDS: VITAMIN D (CHOLECALCIFEROL) 400 INTERNATIONAL UNITS TAB PO SCH ×2 (09:27→21:08)
[2019-01-06] MEDS: PANTOPRAZOLE 40MG TAB (PROTONIX) PO SCH (09:27)
[2019-01-06] MEDS: GABAPENTIN 400 MG CAP PO SCH ×2 (09:27→21:10)
[2019-01-06] MEDS: oxyBUTYnin *DITROPAN XL* 5 MG TABCR PO SCH (09:27)
[2019-01-06] MEDS: OYSTER SHELL CALCIUM 500 MG TAB PO SCH ×2 (09:27→21:10)
[2019-01-06] MEDS: FLUoxetine 10 MG CAP PO SCH (09:27)
[2019-01-06] MEDS: cloNIDine 0.1 MG TAB PO SCH (09:36)
[2019-01-06 09:40] LABS: APPEARANCE, URINE CLEAR (CLEAR); BACTERIA, URINE AUTO NEGATIVE (NEGATIVE); BILIRUBIN, URINE AUTO NEGATIVE (NEGATIVE); BLOOD, URINE BLOOD NEGATIVE (NEGATIVE); COLOR, URINE YELLOW (YELLOW); GLUCOSE, URINE (UA) AUTO NEGATIVE (NEGATIVE); KETONE, URINE AUTO 2+ mg/dL (NEGATIVE); LEUKOCYTE ESTERASE, URINE AUTO NEGATIVE (NEGATIVE); NITRITE, URINE AUTO NEGATIVE (NEGATIVE); PROTEIN, URINE AUTO 1+ mg/dL (NEGATIVE); RBC, URINE AUTO 2 /HPF (0-3); SPECIFIC GRAVITY URINE AUTO 1.028 (1.002-1.035); SQUAMOUS EPITHELIAL CELL UR AU 1 /HPF (0-6); UROBILINOGEN, URINE AUTO 0.2 mg/dL (0.0-2.0); WBC, URINE AUTO 12 /HPF (0-3)
[2019-01-06] MEDS ORDERED: OLANZapine ORAL DISINTEGRATING TAB 5MG PO ONE (10:45)
--- NOTE | 2019-01-06 10:51 | MHIPNPDOC ---
[facility] Progress Note Progress Note DATE OF SERVICE: 01/06/19 HISTORY: Patient is a 53 -year-old , female, with a history of depression, substance abuse, and PTSD (per pt) and no previous admission [facility] who was brought to [facility] by state police after she told officer she needed help b/c she was suicidal per ED. Pt stated in ED that she has been depressed since the of her close friend/neighbor who in his apt in 2015 and was not found until 12 days later even though pt states she asked the landlord to check on him multiple times. States she came to [facility] ED on 12/28/18 and wanted help but "didn't say the right things" to get the help she wanted per ED. Pt stated in ED that she was at [facility] earlier in morning on the day seen in [facility] ED and was treated for dehydration with IV fluids then d/c. Pt stated she was walk from hospital to her aunts house and saw a state police commissioner and decided to approach him and tell him she needed help and was suicidal per ED. Pt stated in ED that she felt her psychiatric meds weren't beneficial so she stopped her xanax, oxycodone, and paxil on the own w/o telling her provider at [facility]. Stated she was d/c by her therapist at [facility] earlier in December due to being told over the phone she was "too complicated" for the therapist w/o referral to another therapist per ED. She endorsed depression for months, pain medication abuse, and self starvation due to ther being "nothing to live for" and poor appetite in the ED. History gathered from Chart Review as pt not talk to me even though asked multiple times. VITAL SIGNS: See below. NEW TEST RESULTS: Anion Gap 15, Glomerular Filtration Rate > 60.0, Blood Urea Nitrogen 14, Creatinine 0.90, Sodium Level 145, Potassium Level 3.9, Chloride Level 111H, Carbon Dioxide Level 19L, Calcium Level 9.4, Phosphorus Level 3.5, Aspartate Amino Transf (AST/SGOT) 8, Alanine Aminotransferase (ALT/SGPT) 16, Alkaline Phosphatase 40L, Total Bilirubin 0.6, Total Protein 7.7, Albumin 4.1, Magnesium Level 2.0, Albumin/Globulin Ratio 1.14 ECG 12/31/18 Intervals [place] Rate: 53 P: 25 ND: 117 QRS: 51 QRSD: 88 T: 20 QT: 471 QTc: 443 Interpretive Statements SINUS BRADYCARDIA WITH SINUS ARRHYTHMIA WITH SHORT ND INTERVAL NSTTW ABNORMALITIES ECG 01/06/19 Intervals [place] Rate: 73 P: 66 ND: 147 QRS: 61 QRSD: 83 T: 33 QT: 364 QTc: 402 Interpretive Statements SINUS RHYTHM - heart rate increased with dehydration CURRENT MEDICATIONS: See below. MENTAL STATUS EXAMINATION: General Appearance: well groomed, appears stated age Build: average, tall Demeanor: more withdrawn, preoccupied, fatigued Eye Contact: fair Activity: slowed Behavior: withdrawn, more psychomotor retardation Speech: slowed and slow to respond, minimal response, mostly just shake's head no when asked if she will eating or drink something Mood: very depressed, very anxious regarding eating and drinking Mood "I don't understand how my body could be shutting down" Affect: very constricted, flat, inappropriate, psychomotor retardation, anhedonia, avolition, lacks capacity to make medical decisions regarding physial health. Thought Process: slow, linear, illogical w/thought blocking and internal thought preoccupation especially regarding eating Thought Content (Delusions): denies hallucinations and delusions Thought Content (Other): thought block and preoccupation Thought Content (Aggressive): none reported Perception (Hallucinations): denies AVH Perception (Other): none reported Cognition (Impairment of): slowed Cognition(Intelligence Est.): average but functioning currently below average secondary thought blocking and preoccupation, starvation Oriented: Awake, Alert, Oriented times three Insight: very poor Judgment: very Poor Psychosis: denies DIAGNOSES: Major depressive d/o recurrent severe w/psychosis hx of opiate and benzodiazepine abuse R/O eating d/o unspecified/anorexia nervosa ASSESSMENT: Per staff, pt refused morning labs, only drinking water when taking meds, continues to not eat anything due to wanting to starve herself to and fear of food and gaining weight. Thoughts around food and passive SI show that pt is not logical and has no insight and very poor juedgement so therefore lacks capacity to make medical decisions regarding treatment, therefore should no be able to refuse labs needed to pt physical health decompensating due to lack of food and water. EKG on done Friday already showing Tachycardia secondary to dehydration. Pt seen in room and states she doesn't want to be "poked" any more regarding labs and tried to explain to pt that need to get regular daily labs on her to monitor electrolytes, organ failure secondary to pt to refusing to eat and drink multiple times and pt kept saying "I don't understand how that's possible" multiple times. Advised pt will have to get labs w/o her consent due to her lack of ability to understand how not eating and drinking can affect physical health, cause organ shut down that is life thre atening should she continue to refuse to eat and drink and allow staff to monitor when electrolytes and organ failure is starting so pt can be transferred to medical floor for NT tube placement and IV fluids. Pt is choose to make decisions to rather than life due to desire of slow suicide rather than live as a physically heathy adult when she is eating and drinking. She has no capacity to medical decisions for herself. Pt will have to eventually transfer her to medical floor for NG tube feedings that she will not be able to control as she has no capacity to make medical decisions for her self secondary poor cognitive status due to prolonged self starvation with thoughts of wanting to . Pt's has very low energy, cognitive ability, increased fatigue, very poor insight and judgement secondary prolonged starvation. Per treatment team pt has a family member with anorexia nervosa." She continues to endorse severe depression with continue passive SI thoughts of dying and wanting to although dose states she has a dog to live for when asked. Endorses psychomotor retardation, thought blocking, thought preoccupation (takes along time to u nderstand what I've said or asked her and then respond due to overwhelming thoughts in her head), and fear of eating and gaining wt as wt lose has taken pressure and pain off her joints. MANAGEMENT PLAN: continue plan. pt to have follow-up with medicine for starvation affecting physical health. Daily cmp, mag, phos, ua. CBC today medications: gabapentin 400mg bid trazodone 75mg qhs prn insomnia prozac 10mg daily vistaril 50mg q6hr prn anxiety. boost shakes tid zyprexa zydis 5mg qhs and 2.5mg qam Ativan 2mg po prn bid anxiety secondary lab draw TIME SPENT: 30 minutes. Vital Signs Vital Signs Date Time Temp Pulse Resp B/P (MAP) Pulse Ox O2 Delivery O2 Flow Rate FiO2 01/06/19 09:36 132/68 01/06/19 06:00 98.4 57 16 01/01/19 13:42 98 01/01/19 12:40 Room Air Laboratory Data 24H Labs Laboratory Tests 2 01/05/19 13:25: Anion Gap 15, Glomerular Filtration Rate > 60.0, Blood Urea Nitrogen 14, Creatinine 0.90, Sodium Level 145, Potassium Level 3.9, Chloride Level 111H, Carbon Dioxide Level 19L, Calcium Level 9.4, Phosphorus Level 3.5, Aspartate Amino Transf (AST/SGOT) 8, Alanine Aminotransferase (ALT/SGPT) 16, Alkaline Phosphatase 40L, Total Bilirubin 0.6, Total Protein 7.7, Albumin 4.1, Magnesium Level 2.0, Albumin/Globulin Ratio 1.14 CBC/BMP Laboratory Tests 01/05/19 13:25 Calcium Level 9.4, Phosphorus Level 3.5, Aspartate Amino Transf (AST/SGOT) 8, Alanine Aminotransferase (ALT/SGPT) 16, Alkaline Phosphatase 40 L, Total Bilir ubin 0.6, Total Protein 7.7, Albumin 4.1 Current Medications Current Medications Acetaminophen (Tylenol Tab) 650 mg Q6HP PRN PO HEADACHE or DISCOMFORT; Start 01/01/19 at 12:15 Al Hydrox/Mg Hydrox/Simethicone (Mylanta) 30 ml Q4HP PRN PO HEARTBURN/INDIGEST ION; Start 01/01/19 at 12:15 Calcium Carbonate (Oscal) 500 mg BID PO Last administered on 01/06/19at 09:27; Start 01/01/19 at 09:00 Clonidine HCl (Catapres) 0.1 mg DAILY PO Last administered on 01/06/19at 09:36; Start 01/01/19 at 09:00 Fluoxetine HCl (PROzac) 10 mg DAILY PO Last administered on 01/06/19at 09:27; Start 01/03/19 at 09:00 Fluticasone Propionate (Flonase 0.05% Nasal [place]) 2 spray DAILY PRN NA NASAL CONGESTION; Start 01/01/19 at 12:15 Gabapentin (Neurontin) 400 mg BID PO Last administered on 01/06/19at 09:27; Start 01/01/19 at 09:00 Gabapentin (Neurontin) 400 mg BID PO ; Start 01/01/19 at 21:00; Stop 01/01/19 at 21:00; Status DC Home Med (Med Rec Complete!) ASDIRECTED XX ; Start 01/01/19 at 04:15; Stop 01/01/19 at 04:16; Status DC Hydroxyzine HCl (Atarax) 50 mg Q6HP PRN PO ANXIETY/AGITATION Last administered on 01/02/19at 17:53; Start 01/02/19 at 11:15 Levothyroxine Sodium (Synthroid) 112 mcg DAILY@0600 PO Last administered on 01/06/19 05:34; Start 01/01/19 at 06:00 Lisinopril (Prinivil) 5 mg QHS PO Last administered on 01/03/19 21:31; Start 01/01/19 at 21:00; Stop 01/04/19 at 19:09; Status DC Magnesium Hydroxide (Milk Of Magnesia) 30 ml DAILYPRN PRN PO CONSTIPATION; Start 01/01/19 at 12:15 Metoprolol Succinate (TopROL XL) 25 mg QHS PO Last administered on 01/05/19at 20:39; Start 01/01/19 at 21:00 Oxybutynin Chloride (Ditropan Xl) 10 mg DAILY PO Last administered on 01/06/19 09:27; Start 01/01/19 at 09:00 Pantoprazole Sodium (Protonix) 40 mg DAILY PO Last administered on 01/06/19 09:27; Start 01/01/19 at 09:00 Pravastatin Sodium (Pravachol) 80 mg QHS PO Last administered on 01/05/19 20:31; Start 01/01/19 at 21:00 Quetiapine Fumarate (SEROquel) 25 mg QHS PO Last administered on 01/05/19 20:31; Start 01/03/19 at 21:00 Topiramate (TopAMAX) 50 mg BID PO Last administered on 01/04/19 20:49; Start 01/01/19 at 09:00; Stop 01/05/19 at 09:57; Status DC Trazodone HCl (Desyrel) 50 mg QHSP PRN PO INSOMNIA Last administered on 01/01/19 20:32; Start 01/01/19 at 12:15; Stop 01/02/19 at 11:15; Status DC Trazodone HCl (Desyrel) 75 mg QHS PO Last administered on 01/05/19at 20:31; Start 01/02/19 at 21:00 Vitamin D (Vitamin D) 200 units BID PO Last administered on 01/06/19at 09:27; Start 01/01/19 at 09:00 Allergies Coded Allergies: Penicillins (Verified Allergy, Intermediate, hives, 12/28/18) fentanyl (Verified Allergy, Mild, itchy, 12/28/18) hydromorphone (Verified Allergy, Mild, itchy, 12/28/18) morphine (Verified Allergy, Mild, itchy, 12/28/18) NSAIDS (Non-Steroidal Anti-Inflamma (Verified Adverse Reaction, Intermediate, gi bleed, 12/28/18) aspirin (Verified Adverse Reaction, Intermediate, gi bleed, 12/28/18) celecoxib (Verified Adverse Reaction, Intermediate, gi bleed, 12/28/18) codeine (Verified Adverse Reaction, Mild, upset stomach, 12/28/18) methadone (Verified Adverse Reaction, Mild, confusion, 12/28/18) SUNSHINE CADET DO Jan 06, 2019 10:51
[2019-01-06 12:12] LABS: ALBUMIN 3.9 GM/DL (3.2-5.2); ALT/SGPT 15 U/L (12-78); BILIRUBIN,TOTAL 0.6 MG/DL (0.2-1.0); BLOOD UREA NITROGEN 12 MG/DL (7-18); CALCIUM LEVEL 8.7 MG/DL (8.5-10.1); CARBON DIOXIDE LEVEL 18 MEQ/L (21-32); CHLORIDE LEVEL 110 MEQ/L (98-107); CREATININE FOR GFR 0.73 MG/DL (0.55-1.30); GLOMERULAR FILTRATION RATE > 60.0 (>51); GLUCOSE, FASTING 85 MG/DL (70-100); MAGNESIUM LEVEL 1.9 MG/DL (1.8-2.4); PHOSPHORUS LEVEL 3.8 MG/DL (2.5-4.9); POTASSIUM SERUM 4.1 MEQ/L (3.5-5.1); SODIUM LEVEL 144 MEQ/L (136-145); TOTAL PROTEIN 7.2 GM/DL (6.4-8.2)
[2019-01-06 18:19] VITALS: BP 128/85
[2019-01-06] MEDS: PRAVASTATIN 20 MG TAB PO SCH (21:10)
[2019-01-06] MEDS: METOPROLOL SUCC *XL* 25MG TAB (TopROL *XL*) PO SCH (21:10)
[2019-01-06] MEDS: traZODone 50 MG TAB PO SCH (21:11)
[2019-01-06] MEDS: OLANZapine ORAL DISINTEGRATING TAB 5MG PO SCH (21:12)
[2019-01-07] MEDS: LEVOTHYROXINE 112MCG TABLET (0.112MG) PO SCH (06:12)
[2019-01-07 06:33] VITALS: BP 140/90
[2019-01-07] MEDS: FLUoxetine 10 MG CAP PO SCH (08:16)
[2019-01-07] MEDS: OLANZapine ORAL DISINTEGRATING TAB 5MG PO SCH ×2 (08:17→20:52)
[2019-01-07] MEDS: oxyBUTYnin *DITROPAN XL* 5 MG TABCR PO SCH (08:17)
[2019-01-07] MEDS: VITAMIN D (CHOLECALCIFEROL) 400 INTERNATIONAL UNITS TAB PO SCH ×2 (08:17→20:51)
[2019-01-07] MEDS: OYSTER SHELL CALCIUM 500 MG TAB PO SCH ×2 (08:17→20:50)
[2019-01-07] MEDS: GABAPENTIN 400 MG CAP PO SCH ×2 (08:17→20:54)
[2019-01-07] MEDS: PANTOPRAZOLE 40MG TAB (PROTONIX) PO SCH (08:17)
[2019-01-07] MEDS: cloNIDine 0.1 MG TAB PO SCH (08:27)
--- NOTE | 2019-01-07 13:24 | ECGEPIP ---
[facility] Test Date: 2019-01-06 Pat Name: PARDEEP VELEZ Department: Room: [place] [address] Gender: Female Groundskeeping Maintenance Worker: BRANDON : 1965 Requested By: SUNSHINE Teran Order Number: [id number] Reading MD: Flora Coburn Measurements Intervals [place] Rate: 73 P: 66 TN: 147 QRS: 61 QRSD: 83 T: 33 QT: 364 QTc: 402 Interpretive Statements SINUS RHYTHM SIMILAR TO 12/31/18 BUT FOR FASTER HR Electronically Signed on 01-07-2019 13:24:41 EDT by Flora Coburn
[2019-01-07 18:09] VITALS: BP 123/87
[2019-01-07] MEDS: PRAVASTATIN 20 MG TAB PO SCH (20:52)
[2019-01-07] MEDS: traZODone 50 MG TAB PO SCH (20:52)
[2019-01-07] MEDS: METOPROLOL SUCC *XL* 25MG TAB (TopROL *XL*) PO SCH (20:53)
[2019-01-08] MEDS: LEVOTHYROXINE 112MCG TABLET (0.112MG) PO SCH (05:31)
[2019-01-08 06:05] VITALS: BP 130/86
[2019-01-08] MEDS ORDERED: ACETAMINOPHEN TAB 650MG DOSE (2X325MG) PO PRN (06:45)
[2019-01-08] MEDS ORDERED: MOM 30ML SUSPENSION UDC PO PRN (06:45)
[2019-01-08] MEDS ORDERED: traZODone 50 MG TAB PO PRN (06:45)
[2019-01-08] MEDS ORDERED: MAALOX 30 ML SUSP *UDC PO PRN (06:45)
[2019-01-08] MEDS ORDERED: NICOTINE 21MG/24HR 1 EA TRANSDERMAL TD PRN (06:45)
[2019-01-08] MEDS: OLANZapine ORAL DISINTEGRATING TAB 5MG PO SCH ×2 (09:00→20:13)
[2019-01-08] MEDS: OYSTER SHELL CALCIUM 500 MG TAB PO SCH ×2 (09:00→20:13)
[2019-01-08] MEDS: cloNIDine 0.1 MG TAB PO SCH (09:00)
[2019-01-08] MEDS: oxyBUTYnin *DITROPAN XL* 5 MG TABCR PO SCH (09:00)
[2019-01-08] MEDS: VITAMIN D (CHOLECALCIFEROL) 400 INTERNATIONAL UNITS TAB PO SCH ×2 (09:00→20:13)
[2019-01-08] MEDS: PANTOPRAZOLE 40MG TAB (PROTONIX) PO SCH (09:00)
[2019-01-08] MEDS: FLUoxetine 10 MG CAP PO SCH (09:00)
[2019-01-08] MEDS: GABAPENTIN 400 MG CAP PO SCH ×2 (09:00→20:11)
[2019-01-08] MEDS ORDERED: LORazepam 2 MG TAB PO PRN (10:30)
[2019-01-08] MEDS ORDERED: LORazepam 2 MG TAB PO ONE (10:30)
[2019-01-08 12:03] LABS: HEMATOCRIT 43.1 % (36.0-47.0); HEMOGLOBIN 14.8 g/dl (12.0-15.5); MEAN CORPUSCULAR HGB CONC 34.3 g/dl (32.0-36.5); MEAN CORPUSCULAR VOLUME 90.4 fl (80.0-96.0); PLATELET COUNT, AUTOMATED 264 10^3/uL (150-450); RED BLOOD COUNT 4.77 10^6/uL (4.00-5.40); WHITE BLOOD COUNT 7.8 10^3/uL (4.0-10.0)
[2019-01-08 12:56] LABS: ALT/SGPT 14 U/L (12-78); BILIRUBIN,TOTAL 0.7 MG/DL (0.2-1.0); BLOOD UREA NITROGEN 13 MG/DL (7-18); CALCIUM LEVEL 9.3 MG/DL (8.5-10.1); CARBON DIOXIDE LEVEL 18 MEQ/L (21-32); CHLORIDE LEVEL 109 MEQ/L (98-107); CREATININE FOR GFR 0.83 MG/DL (0.55-1.30); GLOMERULAR FILTRATION RATE > 60.0 (>51); GLUCOSE, FASTING 68 MG/DL (70-100); MAGNESIUM LEVEL 1.9 MG/DL (1.8-2.4); PHOSPHORUS LEVEL 3.9 MG/DL (2.5-4.9); POTASSIUM SERUM 3.9 MEQ/L (3.5-5.1); SODIUM LEVEL 144 MEQ/L (136-145); TOTAL PROTEIN 7.4 GM/DL (6.4-8.2)
--- NOTE | 2019-01-08 13:38 | IPNPDOC ---
Date Seen The patient was seen on 01/08/19. Progress Note SUBJECTIVE: Patient appeared sad and low energy but did quickly open up and communicate more. There is a concern for patient not eating and drinking, patient reports just feeling sad and not in the mood to eat. Advised that we do not want her body/organs to shut down and could impact her future one day if she cause damage to her body now. States that she understand and will make an attempt to eat even if she doesn't feel like it. Already managed to eat the chicken inside her sandwich for lunch today. Also reports that she hasn't had a bowel movements in a long time but it is her norm and she can go weeks without having a bowel movement due to opiate use. She is fine with Miralax and wants to try it again. OBJECTIVE PHYSICAL EXAMINATION: VITAL SIGNS: Please see below. General: Alert, low energy, sad. Eyes: Normal sclera, EOMI, RICKY HENT: Atraumatic, neck supple, moist mucous membranes Cardiovascular: Normal rate, normal rhythm. Pulmonary: Clear to auscultation b/l, no wheezing GI: Soft, nontender, nondistended Skin: Warm and dry Neuro: CN grossly intact. No focal deficits. Strengths equal b/l. Psych: oriented x 3. LABORATORY DATA, IMAGING STUDIES, MICROBIOLOGY: Please see below. Assessment and Plan: 1. Depression/PTSD - c/w medications and counseling by Psych. - She is amenable to trying to get better, I think she will be able to get out of this episode. 2. Poor PO intake - Starting to make progress today. - Determined to try to eat despite lack of appetite and depressed mood. - Will continue to monitor and check up with patient daily, encourage her. - Blood work looks good without any signs of renal impairment. - Does not need to check daily, especially since patient is starting to eat and drink now. - Consider checking bloodwork about 2x/week if diet continues to be a problem. - Does not need NGT placement or IVF resuscitation at this time. 3. Hypothyroidism - c/w home dose synthroid 4. HTN - resume home medications - Lisinopril on hold right now with concern for kidney impairment but likely can be resumed soon, although BP appeared stable without it. VS, I&O, 24H, Fishbone Vital Signs/I&O Vital Signs Date Time Temp Pulse Resp B/P (MAP) Pulse Ox O2 Delivery O2 Flow Rate FiO2 01/08/19 06:05 98.6 66 18 130/86 (101) I&O- Last 24 Hours up to 6 AM 01/08/19 06:00 Intake Total 570 ml Output Total 800 ml Balance -230 ml Laboratory Data 24H LABS Laboratory Tests 2 01/08/19 11:34: Nucleated Red Blood Cells % (auto) 0.0, Anion Gap 17H, Glomerular Filtration Rate > 60.0, Blood Urea Nitrogen 13, Creatinine 0.83, Sodium Level 144, Potassium Level 3.9, Chloride Level 109H, Carbon Dioxide Level 18L, Calcium Level 9.3, Phosphorus Level 3.9, Aspartate Amino Transf (AST/SGOT) 8, Alanine Aminotransferase (ALT/SGPT) 14, Alkaline Phosphatase 39L, Total Bilirubin 0.7, Total Protein 7.4, Albumin 4.0, Magnesium Level 1.9, Albumin/Globulin Ratio 1.18 CBC/BMP Laboratory Tests 01/08/19 11:34 Red Blood Count 4.77, Mean Corpuscular Volume 90.4, Mean Corpuscular Hemoglobin 31.0, Mean Corpuscular Hemoglobin Concent 34.3, Red Cell Distribution Width 12.3, Calcium Level 9.3, Phosphorus Level 3.9, Aspartate Amino Transf (AST/SGOT) 8, Alanine Aminotransferase (ALT/SGPT) 14, Alkaline Phosphatase 39 L, Total Bilirubin 0.7, Total Protein 7.4, Albumin 4.0 RAMYA UBTTS MD Jan 08, 2019 13:38
[2019-01-08] MEDS ORDERED: LORazepam 1 MG TAB PO PRN (14:00)
[2019-01-08 14:30] LABS: APPEARANCE, URINE CLOUDY (CLEAR); BACTERIA, URINE AUTO 1+ (NEGATIVE); BILIRUBIN, URINE AUTO NEGATIVE (NEGATIVE); BLOOD, URINE BLOOD NEGATIVE (NEGATIVE); COLOR, URINE YELLOW (YELLOW); GLUCOSE, URINE (UA) AUTO NEGATIVE (NEGATIVE); KETONE, URINE AUTO 2+ mg/dL (NEGATIVE); LEUKOCYTE ESTERASE, URINE AUTO TRACE (NEGATIVE); MUCUS, URINE SMALL (NEGATIVE); NITRITE, URINE AUTO NEGATIVE (NEGATIVE); PROTEIN, URINE AUTO 1+ mg/dL (NEGATIVE); RBC, URINE AUTO 3 /HPF (0-3); SPECIFIC GRAVITY URINE AUTO 1.028 (1.002-1.035); SQUAMOUS EPITHELIAL CELL UR AU 4 /HPF (0-6); UROBILINOGEN, URINE AUTO 0.2 mg/dL (0.0-2.0); WBC, URINE AUTO 20 /HPF (0-3)
[2019-01-08] MEDS ORDERED: MIRALAX *UNIT DOSE* 17GM PACKET PO PRN (14:45)
[2019-01-08] MEDS ORDERED: OLANZapine ORAL DISINTEGRATING TAB 5MG PO ONE (17:00)
[2019-01-08 18:00] VITALS: BP 125/96
[2019-01-08] MEDS: PRAVASTATIN 20 MG TAB PO SCH (20:11)
[2019-01-08] MEDS: traZODone 50 MG TAB PO SCH (20:14)
[2019-01-08] MEDS: METOPROLOL SUCC *XL* 25MG TAB (TopROL *XL*) PO SCH (20:14)
[2019-01-08] MEDS: ACETAMINOPHEN TAB 650MG DOSE (2X325MG) PO PRN (20:25)
[2019-01-09] MEDS: LEVOTHYROXINE 112MCG TABLET (0.112MG) PO SCH (06:10)
[2019-01-09 06:36] VITALS: BP 126/86
[2019-01-09] MEDS: FLUoxetine 10 MG CAP PO SCH (09:01)
[2019-01-09] MEDS: OLANZapine ORAL DISINTEGRATING TAB 5MG PO SCH ×2 (09:01→20:29)
[2019-01-09] MEDS: VITAMIN D (CHOLECALCIFEROL) 400 INTERNATIONAL UNITS TAB PO SCH ×2 (09:01→20:30)
[2019-01-09] MEDS: GABAPENTIN 400 MG CAP PO SCH ×2 (09:01→20:29)
[2019-01-09] MEDS: oxyBUTYnin *DITROPAN XL* 5 MG TABCR PO SCH (09:01)
[2019-01-09] MEDS: PANTOPRAZOLE 40MG TAB (PROTONIX) PO SCH (09:01)
[2019-01-09] MEDS: OYSTER SHELL CALCIUM 500 MG TAB PO SCH ×2 (09:01→20:29)
[2019-01-09] MEDS: cloNIDine 0.1 MG TAB PO SCH (09:13)
[2019-01-09] MEDS: MIRALAX *UNIT DOSE* 17GM PACKET PO PRN (10:09)
--- NOTE | 2019-01-09 10:36 | IPNPDOC ---
Date Seen The patient was seen on 01/09/19. Progress Note SUBJECTIVE: Patient still appear sad today. Speaking much less than yesterday but does answer some questions. Still constipated but had a little of bowel movement yesterday. Reportedly had some abdominal discomfort but does not seem to have it this morning. Had been eating and drinking more since yesterday. OBJECTIVE PHYSICAL EXAMINATION: VITAL SIGNS: Please see below. General: Alert, low energy, sad. Eyes: Normal sclera, EOMI, RICKY HENT: Atraumatic, neck supple, moist mucous membranes Cardiovascular: Normal rate, normal rhythm. Pulmonary: Clear to auscultation b/l, no wheezing GI: Soft, nontender, nondistended Skin: Warm and dry Neuro: CN grossly intact. No focal deficits. Strengths equal b/l. Psych: oriented x 3. LABORATORY DATA, IMAGING STUDIES, MICROBIOLOGY: Please see below. Assessment and Plan: 1. Depression/PTSD - c/w medications and counseling by Psych. - She is amenable to trying to get better, I think she will be able to get out of this episode. 2. Poor PO intake - Making progress. - Determined to try to eat despite lack of appetite and depressed mood. - Will continue to monitor and check up with patient daily, encourage her. - Blood work looks good without any signs of renal impairment. - Does not need to check daily, especially since patient is starting to eat and drink now. - Consider checking bloodwork about 2-3x/week if diet continues to be a problem. - Does not need NGT placement or IVF resuscitation at this time. 3. Hypothyroidism - c/w home dose synthroid 4. HTN - resume home medications - Lisinopril on hold right now with concern for kidney impairment but likely can be resumed soon, although BP appeared stable without it. VS, I&O, 24H, Fishbone Vital Signs/I&O Vital Signs Date Time Temp Pulse Resp B/P (MAP) Pulse Ox O2 Delivery O2 Flow Rate FiO2 01/09/19 09:13 132/85 01/09/19 06:36 98.7 96 16 99 I&O- Last 24 Hours up to 6 AM 01/09/19 06:00 Intake Total 650 ml Output Total 550 ml Balance 100 ml Laboratory Data 24H LABS Laboratory Tests 2 01/08/19 11:34: Nucleated Red Blood Cells % (auto) 0.0, Anion Gap 17H, Glomerular Filtration Rate > 60.0, Blood Urea Nitrogen 13, Creatinine 0.83, Sodium Level 144, Potassium Level 3.9, Chloride Level 109H, Carbon Dioxide Level 18L, Calcium Level 9.3, Phosphorus Level 3.9, Aspartate Amino Transf (AST/SGOT) 8, Alanine Aminotransferase (ALT/SGPT) 14, Alkaline Phosphatase 39L, Total Bilirubin 0.7, Total Protein 7.4, Albumin 4.0, Magnesium Level 1.9, Albumin/Globulin Ratio 1.18 01/08/19 14:10: Urine Appearance CLOUDYH, Urine Color YELLOW, Urine pH 6.0, Urine Specific [place] 1.028, Urine Protein 1+H, Urine Glucose (UA) NEGATIVE, Urine Ketones 2+H, Urine Urobilinogen 0.2, Urine Bilirubin NEGATIVE, Urine Leukocyte Esterase TRACEH, Urine Blood NEGATIVE, Urine Nitrite NEGATIVE, Urine WBC (Auto) 20H, U rine RBC (Auto) 3, Urine Hyaline Casts (Auto) 6, Urine Bacteria (Auto) 1+H, Urine Squamous Epithelial Cells 4, Urine Mucus (Auto) SMALL, Urine Sperm (Auto) CBC/BMP Laboratory Tests 01/08/19 11:34 Red Blood Count 4.77, Mean Corpuscular Volume 90.4, Mean Corpuscular Hemoglobin 31.0, Mean Corpuscular Hemoglobin Concent 34.3, Red Cell Distribution Width 12.3, Calcium Level 9.3, Phosphorus Level 3.9, Aspartate Amino Transf (AST/SGOT) 8, Alanine Aminotransferase (ALT/SGPT) 14, Alkaline Phosphatase 39 L, Total Bilirubin 0.7, Total Protein 7.4, Albumin 4.0 RAMYA BUTTS MD Jan 09, 2019 10:36
[2019-01-09 18:08] VITALS: BP 136/86
[2019-01-09] MEDS: ACETAMINOPHEN TAB 650MG DOSE (2X325MG) PO PRN (18:24)
--- NOTE | 2019-01-09 19:52 | REP ---
Clinical: Dyspnea. Possible pneumonia. Comparison: None of . Findings: The mediastinum and cardiac silhouette are stable and within normal limits for portable technique. The lung rivers are clear without acute consolidation, effusion, or pneumothorax. Skeletal structures are intact. Epidural stimulator at the mid thoracic level. Impression: No acute cardiopulmonary process appreciated. Electronically Signed by Blayne Anderson MD 01/09/2019 07:43 P
[2019-01-09] MEDS: PRAVASTATIN 20 MG TAB PO SCH (20:29)
[2019-01-09] MEDS: traZODone 50 MG TAB PO SCH (20:30)
[2019-01-09] MEDS: METOPROLOL SUCC *XL* 25MG TAB (TopROL *XL*) PO SCH (20:30)
[2019-01-10 06:00] VITALS: BP 124/96
[2019-01-10] MEDS: LEVOTHYROXINE 112MCG TABLET (0.112MG) PO SCH (06:18)
[2019-01-10] MEDS: OYSTER SHELL CALCIUM 500 MG TAB PO SCH ×2 (08:33→20:30)
[2019-01-10] MEDS: VITAMIN D (CHOLECALCIFEROL) 400 INTERNATIONAL UNITS TAB PO SCH ×2 (08:33→20:29)
[2019-01-10] MEDS: FLUoxetine 10 MG CAP PO SCH (08:33)
[2019-01-10] MEDS: GABAPENTIN 400 MG CAP PO SCH ×2 (08:33→20:29)
[2019-01-10] MEDS: OLANZapine ORAL DISINTEGRATING TAB 5MG PO SCH ×2 (08:33→20:29)
[2019-01-10] MEDS: PANTOPRAZOLE 40MG TAB (PROTONIX) PO SCH (08:33)
[2019-01-10] MEDS: oxyBUTYnin *DITROPAN XL* 5 MG TABCR PO SCH (08:33)
[2019-01-10] MEDS: cloNIDine 0.1 MG TAB PO SCH (08:47)
--- NOTE | 2019-01-10 11:22 | IPNPDOC ---
Date Seen The patient was seen on 01/10/19. Progress Note Progress Note SUBJECTIVE: Patient continues to be depressed with low appetite. Does not and is refusing any medication for appetite. Still eating and drinking minimall. Fever had resolved yesterday evening, moved out into a cooler room. CXR and Urine culture negative for any infectious process. Patient refusing bloodwork again this morning and stated that she will try to eat and drink more today. Tachycardic today. OBJECTIVE PHYSICAL EXAMINATION: VITAL SIGNS: Please see below. General: Alert, low energy, sad. Eyes: Normal sclera, EOMI, RICKY HENT: Atraumatic, neck supple, moist mucous membranes Cardiovascular: tachycardic Pulmonary: Clear to auscultation b/l, no wheezing GI: Soft, nontender, nondistended Skin: Warm and dry Neuro: CN grossly intact. No focal deficits. Strengths equal b/l. Psych: oriented x 3. LABORATORY DATA, IMAGING STUDIES, MICROBIOLOGY: Please see below. Assessment and Plan: 1. Depression/PTSD - c/w medications and counseling by Psych. - She is amenable to trying to get better, I think she will be able to get out of this episode. 2. Poor PO intake - Making progress. - Determined to try to eat despite lack of appetite and depressed mood. - Will continue to monitor and check up with patient daily, encourage her. - Blood work looks good without any signs of renal impairment. - Does not need to check daily, especially since patient is starting to eat and drink now. - Patient is tachycardic HR low 100s now. No strong evidence of infection. Negative Urine culture and CXR. - Likely to be initial signs of dehydration. Encouraged PO fluid intake. - Would consider initiation of IVF on the floor if does not improve and patient continues to have minimal PO hydration. 3. Hypothyroidism - c/w home dose synthroid 4. HTN - resume home medications - Lisinopril on hold right now with concern for kidney impairment but likely can be resumed soon, although BP appeared stable without it. VS, I&O, 24H, Fishbone Vital Signs/I&O Vital Signs Date Time Temp Pulse Resp B/P (MAP) Pulse Ox O2 Delivery O2 Flow Rate FiO2 01/10/19 08:47 114/76 01/10/19 06:00 99.2 104 14 7/6/19 06:36 99 I&O- Last 24 Hours up to 6 AM 01/10/19 06:00 Intake Total 550 ml Output Total 330 ml Balance 220 ml Laboratory Data Microbiology Microbiology 01/08/19 Urine Culture - Final, Complete RAMYA BUTTS MD Jan 10, 2019 11:22
[2019-01-10 18:07] VITALS: BP 140/100
[2019-01-10] MEDS: traZODone 50 MG TAB PO SCH (20:29)
[2019-01-10] MEDS: PRAVASTATIN 20 MG TAB PO SCH (20:30)
[2019-01-10] MEDS: METOPROLOL SUCC *XL* 25MG TAB (TopROL *XL*) PO SCH (20:44)
[2019-01-11] MEDS: LEVOTHYROXINE 112MCG TABLET (0.112MG) PO SCH (05:32)
[2019-01-11 06:34] VITALS: BP 128/87
--- NOTE | 2019-01-11 08:30 | IPNPDOC ---
Text Note Date of Service The patient was seen on 01/11/19. NOTE Subjective: Still feels depressed, would like vanilla pudding if available, declining blood draws at this time, denies chest pain, denies shortness of breath. Objective: GENERAL: NAD SKIN : Warm, dry intact HEENT: Atraumatic, normocephalic, PERRL, moist mucous membrane CARDIOVASCULAR: Regular rate and rhythm, S1S2, no JVD, no edema, distal pulses + and palpable RESP: CTAB, no accessory muscle use noted ABDOMEN: BS+ non distended non tender MS: no joint deformities NEURO: Alert and oriented x 3, CN2-12 grossly intact PSYCH: Flat affect. Assessment and plan Anorexia and cachexia -Continue to encourage oral intake -Treatment for underlying depression by primary team -Monitor with labs when patient is agreeable Hypertension -Controlled, stable at this time Depression/PTSD -Evaluation and management by Psych. VS,Fishbone, I+O VS, Fishbone, I+O Vital Signs Date Time Temp Pulse Resp B/P (MAP) Pulse Ox O2 Delivery O2 Flow Rate FiO2 01/11/19 06:34 97.9 65 20 128/87 (101) 01/09/19 06:36 99 I&O- Last 24 Hours up to 6 AM 01/11/19 06:00 Intake Total 1020 ml Output Total 250 ml Balance 770 ml CHERYL SOLISP Jan 11, 2019 08:30
[2019-01-11] MEDS: OLANZapine ORAL DISINTEGRATING TAB 5MG PO SCH ×2 (09:03→21:20)
[2019-01-11] MEDS: PILL CUTTER 1 EACH XX PRN (09:03)
[2019-01-11] MEDS: VITAMIN D (CHOLECALCIFEROL) 400 INTERNATIONAL UNITS TAB PO SCH ×2 (09:04→21:19)
[2019-01-11] MEDS: oxyBUTYnin *DITROPAN XL* 5 MG TABCR PO SCH (09:05)
[2019-01-11] MEDS: FLUoxetine 10 MG CAP PO SCH (09:05)
[2019-01-11] MEDS: OYSTER SHELL CALCIUM 500 MG TAB PO SCH ×2 (09:05→21:16)
[2019-01-11] MEDS: PANTOPRAZOLE 40MG TAB (PROTONIX) PO SCH (09:05)
[2019-01-11] MEDS: cloNIDine 0.1 MG TAB PO SCH (09:05)
[2019-01-11] MEDS: GABAPENTIN 400 MG CAP PO SCH ×2 (09:05→21:20)
--- NOTE | 2019-01-11 12:26 | MHIPNPDOC ---
[facility] Progress Note Progress Note Inpatient Progress Note Maris Walker Female Date of : N/A Date of Service: 01/11/2019 History of Present Illness The patient is a 53-year-old woman with a history of depression but no previous inpatient admission presents to [facility] with significant symptoms. She has had a complex treatment on the inpatient unit and will thus need intensive monitoring. Interval History Patient is met with briefly today. She elects to speak very little to this provider, describing that she is experiencing no ill effects from her medication s and that she is attempting to drink at times. She has continued to likely exhibit behavior related to an eating disorder versus major depressive disorder. Review Of Systems Denies any side effects of medications. Psychotherapy None on this visit. Vital Signs Reviewed. Mental Status Examination General: Poor hygiene Speech: Sparse Thought processes: Linear MSK: Smooth and coordinated gait, no signs of tremors or involuntary orofacial movements Thought content: Guarded Abstract reasoning, and computation: Intact Description of associations: Intact Description of abnormal or psychotic thoughts: Patient does not respond to any questions relating to psychotic thoughts or suicide. Judgment: Poor Insight: Poor Orientation: Alert and orientated 3 Cognition: Grossly normal Recent and remote memory: Intact Attention span and concentration: Poor Fund of knowledge: Adequate Mood: "Fine" Affect: Profoundly dysthymic with a constricted range. Diagnoses Major depressive disorder, recurrent, severe with psychosis: Unstable. Opioid use disorder, severe. Benzodiazepine use disorder, severe. Unspecified eating disorder: Unstable. Assessment and Plan The patient is a 53-year-old woman with a significant history of depression and severe anorexia presents to [facility]. She has had a complex and protracted course on the inpatient unit due to her refusal to eat. Disposition The patient is significantly ill and will require extensive inpatient hospitalization to guarantee her safety. She is unable to attend to her needs and will pose an absolute danger if she is discharged. Time Spent 15 minutes. Vital Signs Vital Signs Date Time Temp Pulse Resp B/P (MAP) Pulse Ox O2 Delivery O2 Flow Rate FiO2 01/11/19 09:05 134/92 01/11/19 06:34 97.9 65 20 01/09/19 06:36 99 Current Medications Current Medications Acetaminophen (Tylenol Tab) 650 mg Q6HP PRN PO HEADACHE or DISCOMFORT Last administered on 01/09/19at 18:24; Start 01/01/19 at 12:15 Acetaminophen (Tylenol Tab) 650 mg Q6HP PRN PO HEADACHE or DISCOMFORT; Start 01/08/19 at 06:45; Status UNV Al Hydrox/Mg Hydrox/Simethicone (Mylanta) 30 ml Q4HP PRN PO HEARTBURN/INDIGESTION; Start 01/01/19 at 12:15 Al Hydrox/Mg Hydrox/Simethicone (Mylanta) 30 ml Q4HP PRN PO HEARTBURN/INDIGESTION; Start 01/08/19 at 06:45; Status UNV Calcium Carbonate (Oscal) 500 mg BID PO Last administered on 01/11/19 09:05; Start 01/01/19 at 09:00 Clonidine HCl (Catapres) 0.1 mg DAILY PO Last administered on 01/11/19at 09:05; Start 01/01/19 at 09:00 Fluoxetine HCl (PROzac) 10 mg DAILY PO Last administered on 01/11/19at 09:05; Start 01/03/19 at 09:00 Fluticasone Propionate (Flonase 0.05% Nasal [place]) 2 spray DAILY PRN NA NASAL CONGESTION; Start 01/01/19 at 12:15 Gabapentin (Neurontin) 400 mg BID PO Last administered on 01/11/19at 09:05; Start 01/01/19 at 09:00 Gabapentin (Neurontin) 400 mg BID PO ; Start 01/01/19 at 21:00; Stop 01/01/19 at 21:00; Status DC Home Med (Med Rec Complete!) ASDIRECTED XX ; Start 01/01/19 at 04:15; Stop 01/01/19 at 04:16; Status DC Hydroxyzine HCl (Atarax) 50 mg Q6HP PRN PO ANXIETY/AGITATION Last administered on 01/02/19at 17:53; Start 01/02/19 at 11:15 Levothyroxine Sodium (Synthroid) 112 mcg DAILY@0600 PO Last administered on 01/11/19at 05:32; Start 01/01/19 at 06:00 Lisinopril (Prinivil) 5 mg QHS PO Last administered on 01/03/19at 21:31; Start 01/01/19 at 21:00; Stop 01/04/19 at 19:09; Status DC Lorazepam (Ativan) 1 mg Q4HP PRN PO ANXIETY Last administered on 01/08/19 15:11; Start 01/08/19 at 14:00 Lorazepam (Ativan) 2 mg BID PRN PO ANXIETY/AGITATION; Start 01/08/19 at 10:30; Status Cancel Magnesium Hydroxide (Milk Of Magnesia) 30 ml DAILYPRN PRN PO CONSTIPATION; Start 01/01/19 at 12:15 Magnesium Hydroxide (Milk Of Magnesia) 30 ml DAILYPRN PRN PO CONSTIPATION; Start 01/08/19 at 06:45; Status UNV Metoprolol Succinate (TopROL XL) 25 mg QHS PO Last administered on 01/10/19 20:44; Start 01/01/19 at 21:00 Nicotine (Nicoderm Cq 21mg) 1 patch DAILY PRN TD Craqving; Start 01/08/19 at 06:45; Status UNV Olanzapine (ZyPREXA ZYDIS) 2.5 mg QAM PO Last administered on 01/11/19 0 9:03; Start 01/07/19 at 09:00 Olanzapine (ZyPREXA ZYDIS) 5 mg QHS PO Last administered on 01/10/19 20:29; Start 01/06/19 at 21:00 Oxybutynin Chloride (Ditropan Xl) 10 mg DAILY PO Last administered on 01/11/19 09:05; Start 01/01/19 at 09:00 Pantoprazole Sodium (Protonix) 40 mg DAILY PO Last administered on 01/11/19 09:05; Start 01/01/19 at 09:00 Polyethylene Glycol (Miralax) 1 pkt BIDP PRN PO constipation Last administered on 01/09/19 10:09; Start 01/08/19 at 16:45 Polyethylene Glycol (Miralax) 1 pkt DAILYPRN PRN PO CONSTIPATION Last administered on 01/08/19 14:58; Start 01/08/19 at 14:45; Stop 01/08/19 at 16:49; Status DC Pravastatin Sodium (Pravachol) 80 mg QHS PO Last administered on 01/10/19 20:30; Start 01/01/19 at 21:00 Quetiapine Fumarate (SEROquel) 25 mg QHS PO Last administered on 01/05/19 20:31; Start 01/03/19 at 21:00; Stop 01/06/19 at 10:46; Status DC Topiramate (TopAMAX) 50 mg BID PO Last administered on 01/04/19at 20:49; Start 01/01/19 at 09:00; Stop 01/05/19 at 09:57; Status DC Trazodone HCl (Desyrel) 50 mg QHSP PRN PO INSOMNIA Last administered on 01/01/19 20:32; Start 01/01/19 at 12:15; Stop 01/02/19 at 11:15; Status DC Trazodone HCl (Desyrel) 50 mg QHSP PRN PO INSOMNIA; Start 01/08/19 at 06:45; Status UNV Trazodone HCl (Desyrel) 75 mg QHS PO Last administered on 01/10/19 20:29; Start 01/02/19 at 21:00 Vitamin D (Vitamin D) 200 units BID PO Last administered on 01/11/19 09:04; Start 01/01/19 at 09:00 Allergies Coded Allergies: Penicillins (Verified Allergy, Intermediate, hives, 12/28/18) fentanyl (Verified Allergy, Mild, itchy, 12/28/18) hydromorphone (Verified Allergy, Mild, itchy, 12/28/18) morphine (Verified Allergy, Mild, itchy, 12/28/18) NSAIDS (Non-Steroidal Anti-Inflamma (Verified Adverse Reaction, Intermediate, gi bleed, 12/28/18) aspirin (Verified Adverse Reaction, Intermediate, gi bleed, 12/28/18) celecoxib (Verified Adverse Reaction, Intermediate, gi bleed, 12/28/18) codeine (Verified Adverse Reaction, Mild, upset stomach, 12/28/18) methadone (Verified Adverse Reaction, Mild, confusion, 12/28/18) STEVE MASTERS DO Jan 11, 2019 12:26
[2019-01-11 18:00] VITALS: BP 108/58
[2019-01-11] MEDS: traZODone 50 MG TAB PO SCH (21:17)
[2019-01-11] MEDS: PRAVASTATIN 20 MG TAB PO SCH (21:18)
[2019-01-11] MEDS: METOPROLOL SUCC *XL* 25MG TAB (TopROL *XL*) PO SCH (21:20)
[2019-01-12] MEDS: LEVOTHYROXINE 112MCG TABLET (0.112MG) PO SCH (05:26)
[2019-01-12 06:35] VITALS: BP 123/84
[2019-01-12] MEDS: GABAPENTIN 400 MG CAP PO SCH ×2 (09:14→21:12)
[2019-01-12] MEDS: PANTOPRAZOLE 40MG TAB (PROTONIX) PO SCH (09:14)
[2019-01-12] MEDS: OLANZapine ORAL DISINTEGRATING TAB 5MG PO SCH ×2 (09:14→21:12)
[2019-01-12] MEDS: FLUoxetine 10 MG CAP PO SCH (09:14)
[2019-01-12] MEDS: cloNIDine 0.1 MG TAB PO SCH (09:14)
[2019-01-12] MEDS: VITAMIN D (CHOLECALCIFEROL) 400 INTERNATIONAL UNITS TAB PO SCH ×2 (09:15→21:13)
[2019-01-12] MEDS: oxyBUTYnin *DITROPAN XL* 5 MG TABCR PO SCH (09:15)
[2019-01-12] MEDS: OYSTER SHELL CALCIUM 500 MG TAB PO SCH ×2 (09:15→21:12)
[2019-01-12] MEDS: PILL CUTTER 1 EACH XX PRN (09:15)
--- NOTE | 2019-01-12 09:27 | MHIPNPDOC ---
[facility] Progress Note Progress Note DATE OF SERVICE: 01/12/19 HISTORY: Patient is a 53 -year-old , female, with a history of depression, substance abuse, and PTSD (per pt) and no previous admission [facility] who was brought to [facility] by state police after she told officer she needed help b/c she was suicidal per ED. Pt stated in ED that she has been depressed since the of her close friend/neighbor who in his apt in 2016 and was not found until 12 days later even though pt states she asked the landlord to check on him multiple times. States she came to [facility] ED on 12/28/18 and wanted help but "didn't say the right things" to get the help she wanted per ED. Pt stated in ED that she was at [facility] earlier in morning on the day seen in [facility] ED and was treated for dehydration with IV fluids then d/c. Pt stated she was walk from hospital to her aunts house and saw a [facility] [employer] program coordinator and decided to approach him and tell him she needed help and was suicidal per ED. Pt stated in ED that she felt her psychiatric meds weren't beneficial so she stopped her xanax, oxycodone, and paxil on the own w/o telling her provider at [facility]. Stated she was d/c by her therapist at [facility] earlier in December due to being told over the phone she was "too complicated" for the therapist w/o referral to another therapist per ED. She endorsed depression for months, pain medication abuse, and self starvation due to ther being "nothing to live for" and poor appetite in the ED. History gathered from Chart Review as pt not talk to me even though asked multiple times. VITAL SIGNS: improved with refeeding and hydration NEW TEST RESULTS: refused labs today ECG 12/31/18 Intervals [place] Rate: 53 P: 25 AL: 117 QRS: 51 QRSD: 88 T: 20 QT: 471 QTc: 443 Interpretive Statements SINUS BRADYCARDIA WITH SINUS ARRHYTHMIA WITH SHORT AL INTERVAL NSTTW ABNORMALITIES ECG 01/06/19 Intervals [place] Rate: 73 P: 66 AL: 147 QRS: 61 QRSD: 83 T: 33 QT: 364 QTc: 402 Interpretive Statements SINUS RHYTHM - heart rate increased with dehydration CURRENT MEDICATIONS: See below. MENTAL STATUS EXAMINATION: General Appearance: well groomed, appears stated age Build: average, tall Demeanor: more withdrawn, less preoccupied, fatigued Eye Contact: fair Activity: slowed Behavior: withdrawn, more psychomotor retardation Speech: slowed and slow to respond, minimal response Mood: very depressed, anxious regarding eating and drinking Mood "ok" Affect: very constricted, flat, inappropriate, psychomotor retardation, anhedonia, avolition, lacks capacity to make medical decisions regarding physial health. Thought Process: slow, linear, illogical w/thought blocking and internal t hought preoccupation especially regarding eating Thought Content (Delusions): denies hallucinations and delusions Thought Content (Other): thought block and preoccupation Thought Content (Aggressive): none reported Perception (Hallucinations): denies AVH Perception (Other): none reported Cognition (Impairment of): slowed Cognition(Intelligence Est.): average but functioning currently below average secondary thought blocking and preoccupation, starvation Oriented: Awake, Alert, Oriented times three Insight: very poor Judgment: very Poor Psychosis: denies DIAGNOSES: Major depressive d/o recurrent severe w/psychosis hx of opiate and benzodiazepine abuse R/O eating d/o unspecified/anorexia nervosa ASSESSMENT: Per staff, eating some since Friday evening. Pt seen and asked what she had for breakfast and stated she doesn't usually eat breakfast and never has. Asked what she had for dinner and couldn't remember. Is drinking fluids. Denies hunger response most likely due to not eating for long period of time but should improve as she eats again. Continues to appear anxious around food and eating for fear of weight gain/passive SI. Per last week "Advised pt will have to get labs w/o her consent due to her lack of ability to understand how not eating and drinking can affect physical health, cause organ shut down that is life threatening should she continue to refuse to eat and drink and allow staff to monitor when electrolytes and organ failure is starting so pt can be transferred to medical floor for NT tube placement and IV fluids. Pt is choose to make decisions to rather than life due to desire of slow suicide rather than live as a physically heathy adult when she is eating and drinking. She has no capacity to medical decisions for herself." Pt's has very low energy, cognitive ability, increased fatigue, very poor insight and judgement secondary prolonged starvation that is improving mildly with refeeding and hydration. Per treatment team pt has a family member with anorexia nervosa." She continues to endorse severe depression with continue passive SI thoughts of dying and wanting to although dose states she has a dog to live for when asked. Endorses psychomotor retardation, thought blocking, thought preoccupation , and fear of eating and gaining wt as wt lose has taken pressure and pain off her joints. MANAGEMENT PLAN: continue plan. pt to have follow-up with medicine for starvation affecting physical health. Daily cmp, mag, phos, ua. CBC today medications: gabapentin 400mg bid trazodone 75mg qhs prn insomnia prozac 10mg daily vistaril 50mg q6hr prn anxiety. boost shakes tid zyprexa zydis 5mg qhs and 2.5mg qam Ativan 2mg po prn bid anxiety secondary lab draw TIME SPENT: 30 minutes. Vital Signs Vital Signs Date Time Temp Pulse Resp B/P (MAP) Pulse Ox O2 Delivery O2 Flow Rate FiO2 01/12/19 06:35 97.3 56 14 123/84 (97) 01/09/19 06:36 99 Current Medications Current Medications Acetaminophen (Tylenol Tab) 650 mg Q6HP PRN PO HEADACHE or DISCOMFORT Last administered on 01/09/19at 18:24; Start 01/01/19 at 12:15 Acetaminophen (Tylenol Tab) 650 mg Q6HP PRN PO HEADACHE or DISCOMFORT; Start 01/08/19 at 06:45; Status UNV Al Hydrox/Mg Hydrox/Simethicone (Mylanta) 30 ml Q4HP PRN PO HEARTBURN/INDIGESTION; Start 01/01/19 at 12:15 Al Hydrox/Mg Hydrox/Simethicone (Mylanta) 30 ml Q4HP PRN PO HEARTBURN/INDIGESTION; Start 01/08/19 at 06:45; Status UNV Calcium Carbonate (Oscal) 500 mg BID PO Last administered on 01/11/19at 21:16; Start 01/01/19 at 09:00 Clonidine HCl (Catapres) 0.1 mg DAILY PO Last administered on 01/11/19at 09:05; Start 01/01/19 at 09:00 Fluoxetine HCl (PROzac) 10 mg DAILY PO Last administered on 01/11/19at 09:05; Start 01/03/19 at 09:00 Fluticasone Propionate (Flonase 0.05% Nasal [place]) 2 spray DAILY PRN NA NASAL CONGESTION; Start 01/01/19 at 12:15 Gabapentin (Neurontin) 400 mg BID PO Last administered on 01/11/19at 21:20; Start 01/01/19 at 09:00 Gabapentin (Neurontin) 400 mg BID PO ; Start 01/01/19 at 21:00; Stop 01/01/19 at 21:00; Status DC Home Med (Med Rec Complete!) ASDIRECTED XX ; Start 01/01/19 at 04:15; Stop 01/01/19 at 04:16; Status DC Hydroxyzine HCl (Atarax) 50 mg Q6HP PRN PO ANXIETY/AGITATION Last administered on 01/02/19at 17:53; Start 01/02/19 at 11:15 Levothyroxine Sodium (Synthroid) 112 mcg DAILY@0600 PO Last administered on 01/12/19at 05:26; Start 01/01/19 at 06:00 Lisinopril (Prinivil) 5 mg QHS PO Last administered on 01/03/19at 21:31; Start 01/01/19 at 21:00; Stop 01/04/19 at 19:09; Status DC Lorazepam (Ativan) 1 mg Q4HP PRN PO ANXIETY Last administered on 01/08/19at 15:11; Start 01/08/19 at 14:00 Lorazepam (Ativan) 2 mg BID PRN PO ANXIETY/AGITATION; Start 01/08/19 at 10:30; Status Cancel Magnesium Hydroxide (Milk Of Magnesia) 30 ml DAILYPRN PRN PO CONSTIPATION; Start 01/01/19 at 12:15 Magnesium Hydroxide (Milk Of Magnesia) 30 ml DAILYPRN PRN PO CONSTIPATION; Start 01/08/19 at 06:45; Status UNV Metoprolol Succinate (TopROL XL) 25 mg QHS PO Last administered on 01/11/19 21:20; Start 01/01/19 at 21:00 Nicotine (Nicoderm Cq 21mg) 1 patch DAILY PRN TD Craqving; Start 01/08/19 at 06:45; Status UNV Olanzapine (ZyPREXA ZYDIS) 2.5 mg QAM PO Last administered on 01/11/19at 09:03; Start 01/07/19 at 09:00 Olanzapine (ZyPREXA ZYDIS) 5 mg QHS PO Last administered on 01/11/19 21:20; Start 01/06/19 at 21:00 Oxybutynin Chloride (Ditropan Xl) 10 mg DAILY PO Last administered on 01/11/19 09:05; Start 01/01/19 at 09:00 Pantoprazole Sodium (Protonix) 40 mg DAILY PO Last administered on 01/11/19 09:05; Start 01/01/19 at 09:00 Polyethylene Glycol (Miralax) 1 pkt BIDP PRN PO constipation Last administered on 01/09/19 10:09; Start 01/08/19 at 16:45 Polyethylene Glycol (Miralax) 1 pkt DAILYPRN PRN PO CONSTIPATION Last administered on 01/08/19 14:58; Start 01/08/19 at 14:45; Stop 01/08/19 at 16:49; Status DC Pravastatin Sodium (Pravachol) 80 mg QHS PO Last administered on 01/11/19 21:18; Start 01/01/19 at 21:00 Quetiapine Fumarate (SEROquel) 25 mg QHS PO Last administered on 01/05/19 20:31; Start 01/03/19 at 21:00; Stop 01/06/19 at 10:46; Status DC Topiramate (TopAMAX) 50 mg BID PO Last administered on 01/04/19 20:49; Start 01/01/19 at 09:00; Stop 01/05/19 at 09:57; Status DC Trazodone HCl (Desyrel) 50 mg QHSP PRN PO INSOMNIA Last administered on 01/01/19 20:32; Start 01/01/19 at 12:15; Stop 01/02/19 at 11:15; Status DC Trazodone HCl (Desyrel) 50 mg QHSP PRN PO INSOMNIA; Start 01/08/19 at 06:45; Status UNV Trazodone HCl (Desyrel) 75 mg QHS PO Last administered on 01/11/19 21:17; Start 01/02/19 at 21:00 Vitamin D (Vitamin D) 200 units BID PO Last administered on 01/11/19 21:19; Start 01/01/19 at 09:00 Allergies Coded Allergies: Penicillins (Verified Allergy, Intermediate, hives, 12/28/18) fentanyl (Verified Allergy, Mild, itchy, 12/28/18) hydromorphone (Verified Allergy, Mild, itchy, 12/28/18) morphine (Verified Allergy, Mild, itchy, 12/28/18) NSAIDS (Non-Steroidal Anti-Inflamma (Verified Adverse Reaction, Intermediate, gi bleed, 12/28/18) aspirin (Verified Adverse Reaction, Intermediate, gi bleed, 12/28/18) celecoxib (Verified Adverse Reaction, Intermediate, gi bleed, 12/28/18) codeine (Verified Adverse Reaction, Mild, upset stomach, 12/28/18) methadone (Verified Adverse Reaction, Mild, confusion, 12/28/18) SUNSHINE CADET DO Jan 12, 2019 9:27 am
--- NOTE | 2019-01-12 11:22 | IPNPDOC ---
Text Note Date of Service The patient was seen on 01/12/19. NOTE Subjective: Evaluated at bedside, denies discomfort, reports she has been eating well, declining blood draws at this time. States she will think about it. Objective: GENERAL: NAD SKIN : Warm, dry intact HEENT: Atraumatic, normocephalic, PERRL, moist mucous membrane CARDIOVASCULAR: Regular rate and rhythm, S1S2, no JVD, no edema, distal pulses + and palpable RESP: CTAB, no accessory muscle use noted ABDOMEN: BS+ non distended non tender MS: no joint deformities NEURO: Alert and oriented x 3, CN2-12 grossly intact PSYCH: Flat affect. Assessment and plan Anorexia and cachexia -Oral intake is improving -Continue to encourage intake of fluids and food -Treatment for underlying depression by primary team -Monitor with labs when patient is agreeable Hypertension -Controlled, stable at this time Depression/PTSD -Evaluation and management by Psych. VS,Fishbone, I+O VS, Fishbone, I+O Vital Signs Date Time Temp Pulse Resp B/P (MAP) Pulse Ox O2 Delivery O2 Flow Rate FiO2 01/12/19 09:14 134/88 01/12/19 06:35 97.3 56 14 01/09/19 06:36 99 I&O- Last 24 Hours up to 6 AM 01/12/19 06:00 Intake Total 650 ml Balance 650 ml [facility] Jan 12, 2019 11:22
[2019-01-12 18:00] VITALS: BP 128/74
[2019-01-12] MEDS: traZODone 50 MG TAB PO SCH (21:13)
[2019-01-12] MEDS: METOPROLOL SUCC *XL* 25MG TAB (TopROL *XL*) PO SCH (21:13)
[2019-01-12] MEDS: PRAVASTATIN 20 MG TAB PO SCH (21:14)
[2019-01-13] MEDS: LEVOTHYROXINE 112MCG TABLET (0.112MG) PO SCH (06:03)
[2019-01-13 06:41] VITALS: BP 131/88
[2019-01-13] MEDS: **PENDING PPD ENTRY XX SCH (09:00)
[2019-01-13] MEDS: OLANZapine ORAL DISINTEGRATING TAB 5MG PO SCH ×2 (09:18→20:56)
[2019-01-13] MEDS: OYSTER SHELL CALCIUM 500 MG TAB PO SCH ×2 (09:18→20:54)
[2019-01-13] MEDS: FLUoxetine 10 MG CAP PO SCH (09:18)
[2019-01-13] MEDS: PANTOPRAZOLE 40MG TAB (PROTONIX) PO SCH (09:18)
[2019-01-13] MEDS: VITAMIN D (CHOLECALCIFEROL) 400 INTERNATIONAL UNITS TAB PO SCH ×2 (09:18→20:55)
[2019-01-13] MEDS: GABAPENTIN 400 MG CAP PO SCH ×2 (09:18→20:53)
[2019-01-13] MEDS: oxyBUTYnin *DITROPAN XL* 5 MG TABCR PO SCH (09:18)
--- NOTE | 2019-01-13 09:20 | MHIPNPDOC ---
[facility] Progress Note Progress Note DATE OF SERVICE: 01/13/19 HISTORY: Patient is a 53 -year-old , female, with a history of depression, substance abuse, and PTSD (per pt) and no previous admission [facility] who was brought to [facility] by state police after she told officer she needed help b/c she was suicidal per ED. Pt stated in ED that she has been depressed since the of her close friend/neighbor who in his apt in 2016 and was not found until 12 days later even though pt states she asked the landlord to check on him multiple times. States she came to [facility] ED on 12/28/18 and wanted help but "didn't say the right things" to get the help she wanted per ED. Pt stated in ED that she was at [facility] earlier in morning on the day seen in [facility] ED and was treated for dehydration with IV fluids then d/c. Pt stated she was walk from hospital to her aunts house and saw a formerly [facility] safety instruction police officer and decided to approach him and tell him she needed help and was suicidal per ED. Pt stated in ED that she felt her psychiatric meds weren't beneficial so she stopped her xanax, oxycodone, and paxil on the own w/o telling her provider at [facility]. Stated she was d/c by her therapist at [facility] earlier in December due to being told over the phone she was "too complicated" for the therapist w/o referral to another therapist per ED. She endorsed depression for months, pain medication abuse, and self starvation due to ther being "nothing to live for" and poor appetite in the ED. History gathered from Chart Review as pt not talk to me even though asked multiple times. VITAL SIGNS: improved with refeeding and hydration NEW TEST RESULTS: refused labs today ECG 12/31/18 Intervals [place] Rate: 53 P: 25 TX: 117 QRS: 51 QRSD: 88 T: 20 QT: 471 QTc: 443 Interpretive Statements SINUS BRADYCARDIA WITH SINUS ARRHYTHMIA WITH SHORT [place] INTERVAL NSTTW ABNORMALITIES ECG 01/06/19 Intervals [place] Rate: 73 P: 66 TX: 147 QRS: 61 QRSD: 83 T: 33 QT: 364 QTc: 402 Interpretive Statements SINUS RHYTHM - heart rate increased with dehydration CURRENT MEDICATIONS: See below. MENTAL STATUS EXAMINATION: General Appearance: well groomed, appears stated age Build: average, tall Demeanor: more withdrawn, less preoccupied, fatigued Eye Contact: fair Activity: slowed Behavior: withdrawn, more psychomotor retardation Speech: slowed and slow to respond, minimal response Mood: very depressed, anxious regarding eating and drinking Mood "ok" Affect: very constricted, flat, inappropriate, psychomotor retardation, anhedonia, avolition, lacks capacity to make medical decisions regarding physial health. Thought Process: slow, linear, illogical w/thought blocking and internal thought preoccupation especially regarding eating Thought Content (Delusions): denies hallucinations and delusions Thought Content (Other): thought block and preoccupation Thought Content (Aggressive): none reported Perception (Hallucinations): denies AVH Perception (Other): none reported Cognition (Impairment of): slowed Cognition(Intelligence Est.): average but functioning currently below average secondary thought blocking and preoccupation, starvation Oriented: Awake, Alert, Oriented times three Insight: very poor Judgment: very Poor Psychosis: denies DIAGNOSES: Major depressive d/o recurrent severe w/psychosis hx of opiate and benzodiazepine abuse R/O eating d/o unspecified/anorexia nervosa ASSESSMENT: Per staff, eating some since Friday evening and drank her ensure this morning. Is drinking fluids. States she has hunger feelings in the evening which is a good sign of pt starting to eat and drink and will monitor for improved hunger signalling with continued eating. Continues to appear anxious around food and eating for fear of weight gain/passive SI. Per last week "Advised pt will have to get labs w/o her consent due to her lack of ability to understand how not eating and drinking can affect physical health, cause organ shut down that is life threatening should she continue to refuse to eat and drink and allow staff to monitor when electrolytes and organ failure is starting so pt can be transferred to medical floor for NT tube placement and IV fluids. Pt is choose to make decisions to rather than life due to desire of slow suicide rather than live as a physically heathy adult when she is eating and drinking. She has no capacity to medical decisions for herself." Pt's has very low energy, cognitive ability, increased fatigue, very poor insight and judgement secondary prolonged starvation that is improving mildly with refeeding and hydration. Per treatment team pt has a family member with anorexia nervosa." She continues to endorse severe depression with continue passive SI thoughts of dying and wanting to although dose states she has a dog to live for when asked. Endorses psychomotor retardation, thought blocking, thought preoccupation , and fear of eating and gaining wt as wt lose has taken pressure and pain off her joints. MANAGEMENT PLAN: continue plan. pt to have follow-up with medicine for starvation affecting physical health. Daily cmp, mag, phos, ua. Refer to [facility] for fdc treatment. medications: gabapentin 400mg bid trazodone 75mg qhs prn insomnia prozac 10mg daily vistaril 50mg q6hr prn anxiety. boost shakes tid zyprexa zydis 5mg qhs and 2.5mg qam Ativan 2mg po prn bid anxiety secondary lab draw TIME SPENT: 30 minutes. Vital Signs Vital Signs Date Time Temp Pulse Resp B/P (MAP) Pulse Ox O2 Delivery O2 Flow Rate FiO2 01/13/19 06:41 97.7 85 14 131/88 (102) 01/09/19 06:36 99 Current Medications Current Medications Acetaminophen (Tylenol Tab) 650 mg Q6HP PRN PO HEADACHE or DISCOMFORT Last administered on 01/09/19at 18:24; Start 01/01/19 at 12:15 Acetaminophen (Tylenol Tab) 650 mg Q6HP PRN PO HEADACHE or DISCOMFORT; Start 01/08/19 at 06:45; Status UNV Al Hydrox/Mg Hydrox/Simethicone (Mylanta) 30 ml Q4HP PRN PO HEARTBURN/INDIGESTION; Start 01/01/19 at 12:15 Al Hydrox/Mg Hydrox/Simethicone (Mylanta) 30 ml Q4HP PRN PO HEARTBURN/INDIGESTION; Start 01/08/19 at 06:45; Status UNV Calcium Carbonate (Oscal) 500 mg BID PO Last administered on 01/12/19at 21:12; Start 01/01/19 at 09:00 Clonidine HCl (Catapres) 0.1 mg DAILY PO Last administered on 01/12/19at 09:14; Start 01/01/19 at 09:00 Fluoxetine HCl (PROzac) 10 mg DAILY PO Last administered on 01/12/19at 09:14; Start 01/03/19 at 09:00 Fluticasone Propionate (Flonase 0.05% Nasal [place]) 2 spray DAILY PRN NA NASAL CONGESTION; Start 01/01/19 at 12:15 Gabapentin (Neurontin) 400 mg BID PO Last administered on 01/12/19at 21:12; Start 01/01/19 at 09:00 Gabapentin (Neurontin) 400 mg BID PO ; Start 01/01/19 at 21:00; Stop 01/01/19 at 21:00; Status DC Home Med (Med Rec Complete!) ASDIRECTED XX ; Start 01/01/19 at 04:15; Stop 01/01/19 at 04:16; Status DC Hydroxyzine HCl (Atarax) 50 mg Q6HP PRN PO ANXIETY/AGITATION Last administered on 01/02/19at 17:53; Start 01/02/19 at 11:15 Levothyroxine Sodium (Synthroid) 112 mcg DAILY@0600 PO Last administered on 04/24at 06:03; Start 01/01/19 at 06:00 Lisinopril (Prinivil) 5 mg QHS PO Last administered on 01/03/19at 21:31; Start 01/01/19 at 21:00; Stop 01/04/19 at 19:09; Status DC Lorazepam (Ativan) 1 mg Q4HP PRN PO ANXIETY Last administered on 01/08/19at 15:11; Start 01/08/19 at 14:00 Lorazepam (Ativan) 2 mg BID PRN PO ANXIETY/AGITATION; Start 01/08/19 at 10:30; Status Cancel Magnesium Hydroxide (Milk Of Magnesia) 30 ml DAILYPRN PRN PO CONSTIPATION; Start 01/01/19 at 12:15 Magnesium Hydroxide (Milk Of Magnesia) 30 ml DAILYPRN PRN PO CONSTIPATION; Start 01/08/19 at 06:45; Status UNV Metoprolol Succinate (TopROL XL) 25 mg QHS PO Last administered on 01/12/19at 21:13; Start 01/01/19 at 21:00 Nicotine (Nicoderm Cq 21mg) 1 patch DAILY PRN TD Craqving; Start 01/08/19 at 0 6:45; Status UNV Olanzapine (ZyPREXA ZYDIS) 2.5 mg QAM PO Last administered on 01/12/19at 09:14; Start 01/07/19 at 09:00 Olanzapine (ZyPREXA ZYDIS) 5 mg QHS PO Last administered on 01/12/19 21:12; Start 01/06/19 at 21:00 Oxybutynin Chloride (Ditropan Xl) 10 mg DAILY PO Last administered on 01/12/19 09:15; Start 01/01/19 at 09:00 Pantoprazole Sodium (Protonix) 40 mg DAILY PO Last administered on 01/12/19 09:14; Start 01/01/19 at 09:00 Polyethylene Glycol (Miralax) 1 pkt BIDP PRN PO constipation Last administered on 01/09/19 10:09; Start 01/08/19 at 16:45 Polyethylene Glycol (Miralax) 1 pkt DAILYPRN PRN PO CONSTIPATION Last administered on 01/08/19 14:58; Start 01/08/19 at 14:45; Stop 01/08/19 at 16:49; Status DC Pravastatin Sodium (Pravachol) 80 mg QHS PO Last administered on 01/12/19 21:14; Start 01/01/19 at 21:00 Quetiapine Fumarate (SEROquel) 25 mg QHS PO Last administered on 01/05/19 20:31; Start 01/03/19 at 21:00; Stop 01/06/19 at 10:46; Status DC Topiramate (TopAMAX) 50 mg BID PO Last administered on 01/04/19 20:49; Start 01/01/19 at 09:00; Stop 01/05/19 at 09:57; Status DC Trazodone HCl (Desyrel) 50 mg QHSP PRN PO INSOMNIA Last administered on 01/01/19 20:32; Start 01/01/19 at 12:15; Stop 01/02/19 at 11:15; Status DC Trazodone HCl (Desyrel) 50 mg QHSP PRN PO INSOMNIA; Start 01/08/19 at 06:45; Status UNV Trazodone HCl (Desyrel) 75 mg QHS PO Last administered on 01/12/19 21:13; Start 01/02/19 at 21:00 Vitamin D (Vitamin D) 200 units BID PO Last administered on 01/12/19 21:13; Start 01/01/19 at 09:00 Allergies Coded Allergies: Penicillins (Verified Allergy, Intermediate, hives, 12/28/18) fentanyl (Verified Allergy, Mild, itchy, 12/28/18) hydromorphone (Verified Allergy, Mild, itchy, 12/28/18) morphine (Verified Allergy, Mild, itchy, 12/28/18) NSAIDS (Non-Steroidal Anti-Inflamma (Verified Adverse Reaction, Intermediate, gi bleed, 12/28/18) aspirin (Verified Adverse Reaction, Intermediate, gi bleed, 12/28/18) celecoxib (Verified Adverse Reaction, Intermediate, gi bleed, 12/28/18) codeine (Verified Adverse Reaction, Mild, upset stomach, 12/28/18) methadone (Verified Adverse Reaction, Mild, confusion, 12/28/18) SUNSHINE CADET DO Jan 13, 2019 9:20 am
[2019-01-13] MEDS: cloNIDine 0.1 MG TAB PO SCH (09:24)
[2019-01-13] MEDS ORDERED: TUBERCULIN PPD 5 UNITS/0.1 ML ID ONE (11:00)
[2019-01-13] MEDS: hydrOXYzine 50 MG TAB PO PRN (14:25)
[2019-01-13 18:00] VITALS: BP 115/67
[2019-01-13] MEDS: traZODone 50 MG TAB PO SCH (20:55)
[2019-01-13] MEDS: METOPROLOL SUCC *XL* 25MG TAB (TopROL *XL*) PO SCH (20:55)
[2019-01-13] MEDS: PRAVASTATIN 20 MG TAB PO SCH (20:56)
[2019-01-14] MEDS: LEVOTHYROXINE 112MCG TABLET (0.112MG) PO SCH (05:57)
[2019-01-14 06:47] VITALS: BP 124/82
[2019-01-14] MEDS: **PENDING PPD ENTRY XX SCH (09:00)
[2019-01-14] MEDS: PILL CUTTER 1 EACH XX PRN (09:25)
[2019-01-14] MEDS: OYSTER SHELL CALCIUM 500 MG TAB PO SCH ×2 (09:26→20:32)
[2019-01-14] MEDS: PANTOPRAZOLE 40MG TAB (PROTONIX) PO SCH (09:26)
[2019-01-14] MEDS: OLANZapine ORAL DISINTEGRATING TAB 5MG PO SCH ×2 (09:27→20:32)
[2019-01-14] MEDS: FLUoxetine 10 MG CAP PO SCH (09:27)
[2019-01-14] MEDS: VITAMIN D (CHOLECALCIFEROL) 400 INTERNATIONAL UNITS TAB PO SCH ×2 (09:28→20:32)
[2019-01-14] MEDS: oxyBUTYnin *DITROPAN XL* 5 MG TABCR PO SCH (09:28)
[2019-01-14] MEDS: GABAPENTIN 400 MG CAP PO SCH ×2 (09:29→20:32)
[2019-01-14] MEDS: cloNIDine 0.1 MG TAB PO SCH (09:29)
[2019-01-14] MEDS: MIRALAX *UNIT DOSE* 17GM PACKET PO PRN (12:20)
[2019-01-14] MEDS: hydrOXYzine 50 MG TAB PO PRN (17:30)
[2019-01-14 18:00] VITALS: BP 105/62
[2019-01-14] MEDS: traZODone 50 MG TAB PO SCH (20:32)
[2019-01-14] MEDS: PRAVASTATIN 20 MG TAB PO SCH (20:32)
[2019-01-14] MEDS: METOPROLOL SUCC *XL* 25MG TAB (TopROL *XL*) PO SCH (20:41)
[2019-01-15] MEDS: LEVOTHYROXINE 112MCG TABLET (0.112MG) PO SCH (05:30)
[2019-01-15 06:55] VITALS: BP 120/69
--- NOTE | 2019-01-15 09:03 | MHIPNPDOC ---
[facility] Progress Note Progress Note DATE OF SERVICE: 01/15/19 HISTORY: Patient is a 53 -year-old , female, with a history of depression, substance abuse, and PTSD (per pt) and no previous admission [facility] who was brought to [facility] by state police after she told officer she needed help b/c she was suicidal per ED. Pt stated in ED that she has been depressed since the of her close friend/neighbor who in his apt in 2016 and was not found until 12 days later even though pt states she asked the landlord to check on him multiple times. States she came to [facility] ED on 12/28/18 and wanted help but "didn't say the right things" to get the help she wanted per ED. Pt stated in ED that she was at [facility] earlier in morning on the day seen in [facility] ED and was treated for dehydration with IV fluids then d/c. Pt stated she was walk from hospital to her aunts house and saw a [facility] police officer and decided to approach him and tell him she needed help and was suicidal per ED. Pt stated in ED that she felt her psychiatric meds weren't beneficial so she stopped her xanax, oxycodone, and paxil on the own w/o telling her provider at [facility]. Stated she was d/c by her therapist at [facility] earlier in December due to being told over the phone she was "too complicated" for the therapist w/o referral to another therapist per ED. She endorsed depression for months, pain medication abuse, and self starvation due to ther being "nothing to live for" and poor appetite in the ED. History gathered from Chart Review as pt not talk to me even though asked multiple times. VITAL SIGNS: improved with refeeding and hydration NEW TEST RESULTS: refused labs today ECG 12/31/18 Intervals [place] Rate: 53 P: 25 [place]: 117 QRS: 51 QRSD: 88 T: 20 QT: 471 QTc: 443 Interpretive Statements SINUS BRADYCARDIA WITH SINUS ARRHYTHMIA WITH SHORT [place] INTERVAL NSTTW ABNORMALITIES ECG 01/06/19 Intervals [place] Rate: 73 P: 66 [place]: 147 QRS: 61 QRSD: 83 T: 33 QT: 364 QTc: 402 Interpretive Statements SINUS RHYTHM - heart rate increased with dehydration CURRENT MEDICATIONS: See below. MENTAL STATUS EXAMINATION: General Appearance: well groomed, appears stated age Build: average, tall Demeanor: more withdrawn, less preoccupied, fatigued Eye Contact: fair Activity: slowed Behavior: withdrawn, more psychomotor retardation Speech: slowed and slow to respond, minimal response Mood: very depressed, anxious regarding eating and drinking Mood "ok" Affect: very constricted, flat, inappropriate, psychomotor retardation, anhedonia, avolition, lacks capacity to make medical decisions regarding physial health. Thought Process: slow, linear, illogical w/thought blocking and internal thought preoccupation especially regarding eating Thought Content (Delusions): denies hallucinations and delusions Thought Content (Other): thought block and preoccupation Thought Content (Aggressive): none reported Perception (Hallucinations): denies AVH Perception (Other): none reported Cognition (Impairment of): slowed Cognition(Intelligence Est.): average but functioning currently below average secondary thought blocking and preoccupation, starvation Oriented: Awake, Alert, Oriented times three Insight: very poor Judgment: very Poor Psychosis: denies DIAGNOSES: Major depressive d/o recurrent severe w/psychosis hx of opiate and benzodiazepine abuse R/O eating d/o unspecified/anorexia nervosa ASSESSMENT: Per staff, eating better and drinking her ensure daily and fluids. States she has hunger feelings in the evening which is a good sign of pt starting to eat and drink and will monitor for improved hunger signalling with continued eating. Continues to appear depressed, anhedonic, anxious, and have cognitive distortions regarding loss of loved ones and feeling associated with food, weight gain. Denies SI, HI, hallucinations. Pt's continues to have low energy, increased fatigue, very poor insight and judgement. She continues to endorse severe depression, have psychomotor retardation, mildly improved thought blocking and thought preoccupation. Will increase prozac for depression. Pt is compliant with her medication and is tolerating them well. MANAGEMENT PLAN: continue plan. pt to have follow-up with medicine for starvation affecting physical health. Daily cmp, mag, phos, ua. Refer to [facility] for skilled nursing treatment. medications: gabapentin 400mg bid trazodone 75mg qhs prn insomnia prozac 10mg daily vistaril 50mg q6hr prn anxiety. enusre shakes tid zyprexa zydis 5mg qhs and 2.5mg qam Ativan 2mg po prn bid anxiety secondary lab draw TIME SPENT: 30 minutes. Vital Signs Vital Signs Date Time Temp Pulse Resp B/P (MAP) Pulse Ox O2 Delivery O2 Flow Rate FiO2 01/15/19 06:55 97.1 65 14 120/69 (86) 01/09/19 06:36 99 Current Medications Current Medications Acetaminophen (Tylenol Tab) 650 mg Q6HP PRN PO HEADACHE or DISCOMFORT Last administered on 01/09/19 18:24; Start 01/01/19 at 12:15 Acetaminophen (Tylenol Tab) 650 mg Q6HP PRN PO HEADACHE or DISCOMFORT; Start 01/08/19 at 06:45; Status UNV Al Hydrox/Mg Hydrox/Simethicone (Mylanta) 30 ml Q4HP PRN PO HEARTBURN/INDIGESTION; Start 01/01/19 at 12:15 Al Hydrox/Mg Hydrox/Simethicone (Mylanta) 30 ml Q4HP PRN PO HEARTBURN/INDIGESTION; Start 01/08/19 at 06:45; Status UNV Calcium Carbonate (Oscal) 500 mg BID PO Last administered on 01/14/19at 20:32; Start 01/01/19 at 09:00 Clonidine HCl (Catapres) 0.1 mg DAILY PO Last administered on 01/14/19 09:29; Start 01/01/19 at 09:00 Fluoxetine HCl (PROzac) 10 mg DAILY PO Last administered on 01/14/19 09:27; Start 01/03/19 at 09:00 Fluticasone Propionate (Flonase 0.05% Nasal [place]) 2 spray DAILY PRN NA NASAL C ONGESTION; Start 01/01/19 at 12:15 Gabapentin (Neurontin) 400 mg BID PO Last administered on 01/14/19at 20:32; Start 01/01/19 at 09:00 Gabapentin (Neurontin) 400 mg BID PO ; Start 01/01/19 at 21:00; Stop 01/01/19 at 21:00; Status DC Home Med (Med Rec Complete!) ASDIRECTED XX ; Start 01/01/19 at 04:15; Stop 01/01/19 at 04:16; Status DC Hydroxyzine HCl (Atarax) 50 mg Q6HP PRN PO ANXIETY/AGITATION Last administered on 01/14/19at 17:30; Start 01/02/19 at 11:15 Levothyroxine Sodium (Synthroid) 112 mcg DAILY@0600 PO Last administered on 01/15/19 05:30; Start 01/01/19 at 06:00 Lisinopril (Prinivil) 5 mg QHS PO Last administered on 01/03/19at 21:31; Start 01/01/19 at 21:00; Stop 01/04/19 at 19:09; Status DC Lorazepam (Ativan) 1 mg Q4HP PRN PO ANXIETY Last administered on 01/08/19at 15:11; Start 01/08/19 at 14:00; Stop 01/14/19 at 09:42; Status DC Lorazepam (Ativan) 2 mg BID PRN PO ANXIETY/AGITATION; Start 01/08/19 at 10:30; Status Cancel Magnesium Hydroxide (Milk Of Magnesia) 30 ml DAILYPRN PRN PO CONSTIPATION; Start 01/01/19 at 12:15 Magnesium Hydroxide (Milk Of Magnesia) 30 ml DAILYPRN PRN PO CONSTIPATION; Start 01/08/19 at 06:45; Status UNV Metoprolol Succinate (TopROL XL) 25 mg QHS PO Last administered on 01/14/19at 20:41; Start 01/01/19 at 21:00 Nicotine (Nicoderm Cq 21mg) 1 patch DAILY PRN TD Craqving; Start 01/08/19 at 06:45; Status UNV Non-Formulary Medication ( See Comment Field Below ) SEE LABEL COMMENTS DAILY XX ; Start 01/13/19 at 09:00 Olanzapine (ZyPREXA ZYDIS) 2.5 mg QAM PO Last administered on 01/14/19at 09:27; Start 01/07/19 at 09:00 Olanzapine (ZyPREXA ZYDIS) 5 mg QHS PO Last administered on 01/14/19at 20:32 ; Start 01/06/19 at 21:00 Oxybutynin Chloride (Ditropan Xl) 10 mg DAILY PO Last administered on 01/14/19 09:28; Start 01/01/19 at 09:00 Pantoprazole Sodium (Protonix) 40 mg DAILY PO Last administered on 01/14/19 09:26; Start 01/01/19 at 09:00 Polyethylene Glycol (Miralax) 1 pkt BIDP PRN PO constipation Last administered on 01/14/19 12:20; Start 01/08/19 at 16:45 Polyethylene Glycol (Miralax) 1 pkt DAILYPRN PRN PO CONSTIPATION Last administered on 01/08/19 14:58; Start 01/08/19 at 14:45; Stop 01/08/19 at 16:49; Status DC Pravastatin Sodium (Pravachol) 80 mg QHS PO Last administered on 01/14/19 20:32; Start 01/01/19 at 21:00 Quetiapine Fumarate (SEROquel) 25 mg QHS PO Last administered on 01/05/19 20:31; Start 01/03/19 at 21:00; Stop 01/06/19 at 10:46; Status DC Topiramate (TopAMAX) 50 mg BID PO Last administered on 01/04/19 20:49; Start 01/01/19 at 09:00; Stop 01/05/19 at 09:57; Status DC Trazodone HCl (Desyrel) 50 mg QHSP PRN PO INSOMNIA Last administered on 01/01/19 20:32; Start 01/01/19 at 12:15; Stop 01/02/19 at 11:15; Status DC Trazodone HCl (Desyrel) 50 mg QHSP PRN PO INSOMNIA; Start 01/08/19 at 06:45; Status UNV Trazodone HCl (Desyrel) 75 mg QHS PO Last administered on 01/14/19 20:32; Start 01/02/19 at 21:00 Vitamin D (Vitamin D) 200 units BID PO Last administered on 01/14/19 20:32; Start 01/01/19 at 09:00 Allergies Coded Allergies: Penicillins (Verified Allergy, Intermediate, hives, 12/28/18) fentanyl (Verified Allergy, Mild, itchy, 12/28/18) hydromorphone (Verified Allergy, Mild, itchy, 12/28/18) morphine (Verified Allergy, Mild, itchy, 12/28/18) NSAIDS (Non-Steroidal Anti-Inflamma (Verified Adverse Reaction, Intermediate, gi bleed, 12/28/18) aspirin (Verified Adverse Reaction, Intermediate, gi bleed, 12/28/18) celecoxib (Verified Adverse Reaction, Intermediate, gi bleed, 12/28/18) codeine (Verified Adverse Reaction, Mild, upset stomach, 12/28/18) methadone (Verified Adverse Reaction, Mild, confusion, 12/28/18) SUNSHINE CADET DO Jan 15, 2019 9:03 am
[2019-01-15] MEDS: oxyBUTYnin *DITROPAN XL* 5 MG TABCR PO SCH (09:06)
[2019-01-15] MEDS: GABAPENTIN 400 MG CAP PO SCH ×2 (09:06→21:34)
[2019-01-15] MEDS: PANTOPRAZOLE 40MG TAB (PROTONIX) PO SCH (09:07)
[2019-01-15] MEDS: VITAMIN D (CHOLECALCIFEROL) 400 INTERNATIONAL UNITS TAB PO SCH ×2 (09:07→21:34)
[2019-01-15] MEDS: OLANZapine ORAL DISINTEGRATING TAB 5MG PO SCH ×2 (09:09→21:34)
[2019-01-15] MEDS: OYSTER SHELL CALCIUM 500 MG TAB PO SCH ×2 (09:11→21:34)
[2019-01-15] MEDS: cloNIDine 0.1 MG TAB PO SCH (09:14)
[2019-01-15] MEDS: FLUoxetine 10 MG CAP PO SCH (09:44)
[2019-01-15] MEDS ORDERED: FLUoxetine 10 MG CAP PO ONE (10:00)
[2019-01-15] MEDS ORDERED: PPD DOCUMENTATION ENTRY MISC XX ONE (11:00)
[2019-01-15] MEDS ORDERED: TUBERCULIN PPD 5 UNITS/0.1 ML ID ONE (11:00)
[2019-01-15] MEDS: traZODone 50 MG TAB PO SCH (21:33)
[2019-01-15] MEDS: PRAVASTATIN 20 MG TAB PO SCH (21:34)
[2019-01-15] MEDS: METOPROLOL SUCC *XL* 25MG TAB (TopROL *XL*) PO SCH (21:36)
[2019-01-16] MEDS: LEVOTHYROXINE 112MCG TABLET (0.112MG) PO SCH (05:49)
[2019-01-16 06:44] VITALS: BP 101/62
[2019-01-16] MEDS: GABAPENTIN 400 MG CAP PO SCH ×2 (08:23→21:39)
[2019-01-16] MEDS: OLANZapine ORAL DISINTEGRATING TAB 5MG PO SCH ×2 (08:23→21:39)
[2019-01-16] MEDS: PILL CUTTER 1 EACH XX PRN (08:23)
[2019-01-16] MEDS: VITAMIN D (CHOLECALCIFEROL) 400 INTERNATIONAL UNITS TAB PO SCH ×2 (08:23→21:40)
[2019-01-16] MEDS: oxyBUTYnin *DITROPAN XL* 5 MG TABCR PO SCH (08:23)
[2019-01-16] MEDS: OYSTER SHELL CALCIUM 500 MG TAB PO SCH ×2 (08:23→21:39)
[2019-01-16] MEDS: cloNIDine 0.1 MG TAB PO SCH (08:24)
[2019-01-16] MEDS: FLUoxetine 20 MG CAP PO SCH (08:24)
[2019-01-16] MEDS: PANTOPRAZOLE 40MG TAB (PROTONIX) PO SCH (08:24)
[2019-01-16 18:00] VITALS: BP 116/73
[2019-01-16] MEDS: traZODone 50 MG TAB PO SCH (21:39)
[2019-01-16] MEDS: METOPROLOL SUCC *XL* 25MG TAB (TopROL *XL*) PO SCH (21:39)
[2019-01-16] MEDS: PRAVASTATIN 20 MG TAB PO SCH (21:39)
[2019-01-17] MEDS: LEVOTHYROXINE 112MCG TABLET (0.112MG) PO SCH (05:57)
[2019-01-17 06:50] VITALS: BP 116/74
[2019-01-17] MEDS: PILL CUTTER 1 EACH XX PRN ×2 (08:41→21:47)
[2019-01-17] MEDS: oxyBUTYnin *DITROPAN XL* 5 MG TABCR PO SCH (08:42)
[2019-01-17] MEDS: GABAPENTIN 400 MG CAP PO SCH ×2 (08:42→21:45)
[2019-01-17] MEDS: OYSTER SHELL CALCIUM 500 MG TAB PO SCH ×2 (08:42→21:45)
[2019-01-17] MEDS: VITAMIN D (CHOLECALCIFEROL) 400 INTERNATIONAL UNITS TAB PO SCH ×2 (08:42→21:45)
[2019-01-17] MEDS: cloNIDine 0.1 MG TAB PO SCH (08:43)
[2019-01-17] MEDS: FLUoxetine 20 MG CAP PO SCH (08:43)
[2019-01-17] MEDS: OLANZapine ORAL DISINTEGRATING TAB 5MG PO SCH ×2 (08:44→21:45)
[2019-01-17] MEDS: PANTOPRAZOLE 40MG TAB (PROTONIX) PO SCH (08:44)
[2019-01-17] MEDS: hydrOXYzine 50 MG TAB PO PRN ×2 (10:04→22:45)
[2019-01-17] MEDS ORDERED: PPD DOCUMENTATION ENTRY MISC XX ONE (11:00)
[2019-01-17 18:00] VITALS: BP 115/62
[2019-01-17] MEDS: traZODone 50 MG TAB PO SCH (21:45)
[2019-01-17] MEDS: METOPROLOL SUCC *XL* 25MG TAB (TopROL *XL*) PO SCH (21:45)
[2019-01-17] MEDS: PRAVASTATIN 20 MG TAB PO SCH (21:45)
[2019-01-18] MEDS: LEVOTHYROXINE 112MCG TABLET (0.112MG) PO SCH (06:00)
[2019-01-18 06:50] VITALS: BP 126/82
[2019-01-18] MEDS: OYSTER SHELL CALCIUM 500 MG TAB PO SCH ×2 (08:25→20:36)
[2019-01-18] MEDS: oxyBUTYnin *DITROPAN XL* 5 MG TABCR PO SCH (08:25)
[2019-01-18] MEDS: VITAMIN D (CHOLECALCIFEROL) 400 INTERNATIONAL UNITS TAB PO SCH ×2 (08:25→20:37)
[2019-01-18] MEDS: GABAPENTIN 400 MG CAP PO SCH ×2 (08:25→20:38)
[2019-01-18] MEDS: FLUoxetine 20 MG CAP PO SCH (08:25)
[2019-01-18] MEDS: cloNIDine 0.1 MG TAB PO SCH (08:26)
[2019-01-18] MEDS: OLANZapine ORAL DISINTEGRATING TAB 5MG PO SCH (08:27)
[2019-01-18] MEDS: PANTOPRAZOLE 40MG TAB (PROTONIX) PO SCH (08:27)
--- NOTE | 2019-01-18 11:10 | MHIPNPDOC ---
[facility] Progress Note Progress Note DATE OF SERVICE: 01/18/19 HISTORY: Patient is a 53 -year-old , female, with a history of depression, substance abuse, and PTSD (per pt) and no previous admission [facility] who was brought to [facility] by state police after she told officer she needed help b/c she was suicidal per ED. Pt stated in ED that she has been depressed since the of her close friend/neighbor who in his apt in 2015 and was not found until 12 days later even though pt states she asked the landlord to check on him multiple times. States she came to [facility] ED on 12/28/18 and wanted help but "didn't say the right things" to get the help she wanted per ED. Pt stated in ED that she was at [facility] earlier in morning on the day seen in [facility] ED and was treated for dehydration with IV fluids then d/c. Pt stated she was walk from hospital to her aunts house and saw a [facility] [facility] chief of police and decided to approach him and tell him she needed help and was suicidal per ED. Pt stated in ED that she felt her psychiatric meds weren't beneficial so she stopped her xanax, oxycodone, and paxil on the own w/o telling her provider at [facility]. Stated she was d/c by her therapist at [facility] earlier in December due to being told over the phone she was "too complicated" for the therapist w/o referral to another therapist per ED. She endorsed depression for months, pain medication abuse, and self starvation due to ther being "nothing to live for" and poor appetite in the ED. History gathered from Chart Review as pt not talk to me even though asked multiple times. VITAL SIGNS: improved with refeeding and hydration NEW TEST RESULTS: refused labs today ECG 12/31/18 Intervals [place] Rate: 53 P: 25 ND: 117 QRS: 51 QRSD: 88 T: 20 QT: 471 QTc: 443 Interpretive Statements SINUS BRADYCARDIA WITH SINUS ARRHYTHMIA WITH SHORT ND INTERVAL NSTTW ABNORMALITIES ECG 01/06/19 Intervals [place] Rate: 73 P: 66 ND: 147 QRS: 61 QRSD: 83 T: 33 QT: 364 QTc: 402 Interpretive Statements SINUS RHYTHM - heart rate increased with dehydration CURRENT MEDICATIONS: See below. MENTAL STATUS EXAMINATION: General Appearance: well groomed, appears stated age, attempting to read a book, seen walking milieu Build: average, tall Demeanor: less withdrawn, less preoccupied Eye Contact: fair Activity: more average Behavior: less withdrawn, improved psychomotor retardation Speech: slowed and slow to respond, is improving Mood: very depressed Mood "ok" Affect: less constricted, flat, appropriate, less psychomotor retardation, less anhedonia, less avolition Thought Process: slow, linear, logical w/less thought blocking and internal thought preoccupation Thought Content: Denies SI/HI Thought Content (Other): thought block and preoccupation Thought Content (Aggressive): none reported Perception (Hallucinations): denies AVH Perception (Other): none reported Cognition (Impairment of): slowed but improving Cognition(Intelligence Est.): average Oriented: Awake, Alert, Oriented times three Insight: very poor Judgment: very Poor Psychosis: denies DIAGNOSES: Major depressive d/o recurrent severe w/psychosis hx of opiate and benzodiazepine abuse R/O eating d/o unspecified/anorexia nervosa ASSESSMENT: Per staff, eating 100% of meals yesterday and today up attempting to read but she states it's difficult to concentrate making reading difficult due to anxious/worrisome thoughts in her head. Is endorsing insomnia due to continuous worrisome thoughts and agreeable to increasing zyprexa nightly to improve. Has improved hunger feelings. Continues to appear depressed, but less anhedonic, and continues to be anxious with cognitive distortions regarding loss of loved ones. Denies SI, HI, hallucinations. Pt has improved energy and alertness with better nutrition. Very poor insight and judgement. She continues to endorse severe depression. She's tolerating her medicine well and feels it's beneficial. Pt is compliant with her medication. Encouraged to go to groups MANAGEMENT PLAN: continue plan. pt to have follow-up with medicine for starvati on affecting physical health. [facility]. medications: gabapentin 400mg bid trazodone 75mg qhs prn insomnia prozac 10mg daily vistaril 50mg q6hr prn anxiety. enusre shakes tid zyprexa zydis 10mg qhs and 2.5mg qam Ativan 2mg po prn bid anxiety secondary lab draw TIME SPENT: 30 minutes. Vital Signs Vital Signs Date Time Temp Pulse Resp B/P (MAP) Pulse Ox O2 Delivery O2 Flow Rate FiO2 7/15/19 08:26 119/80 01/18/19 06:50 96.9 56 14 Current Medications Current Medications Acetaminophen (Tylenol Tab) 650 mg Q6HP PRN PO HEADACHE or DISCOMFORT Last administered on 01/09/19at 18:24; Start 01/01/19 at 12:15 Acetaminophen (Tylenol Tab) 650 mg Q6HP PRN PO HEADACHE or DISCOMFORT; Start 01/08/19 at 06:45; Status UNV Al Hydrox/Mg Hydrox/Simethicone (Mylanta) 30 ml Q4HP PRN PO HEARTBURN/INDIGESTION; Start 01/01/19 at 12:15 Al Hydrox/Mg Hydrox/Simethicone (Mylanta) 30 ml Q4HP PRN PO HEARTB URN/INDIGESTION; Start 01/08/19 at 06:45; Status UNV Calcium Carbonate (Oscal) 500 mg BID PO Last administered on 01/18/19at 08:25; Start 01/01/19 at 09:00 Clonidine HCl (Catapres) 0.1 mg DAILY PO Last administered on 01/18/19at 08:26; Start 01/01/19 at 09:00 Fluoxetine HCl (PROzac) 10 mg DAILY PO Last administered on 01/15/19at 09:44; Start 01/03/19 at 09:00; Stop 01/15/19 at 12:00; Status DC Fluoxetine HCl (PROzac) 20 mg DAILY PO Last administered on 01/18/19at 08:25; Start 01/16/19 at 09:00 Fluticasone Propionate (Flonase 0.05% Nasal [place]) 2 spray DAILY PRN NA NASAL CONGESTION; Start 01/01/19 at 12:15 Gabapentin (Neurontin) 400 mg BID PO Last administered on 01/18/19at 08:25; Start 01/01/19 at 09:00 Gabapentin (Neurontin) 400 mg BID PO ; Start 01/01/19 at 21:00; Stop 01/01/19 at 21:00; Status DC Home Med (Med Rec Complete!) ASDIRECTED XX ; Start 01/01/19 at 04:15; Stop 01/01/19 at 04:16; Status DC Hydroxyzine HCl (Atarax) 50 mg Q6HP PRN PO ANXIETY/AGITATION Last administered on 01/17/19at 22:45; Start 01/02/19 at 11:15 Levothyroxine Sodium (Synthroid) 112 mcg DAILY@0600 PO Last administered on 01/18/19at 06:00; Start 01/01/19 at 06:00 Lisinopril (Prinivil) 5 mg QHS PO Last administered on 01/03/19 21:31; Start 01/01/19 at 21:00; Stop 01/04/19 at 19:09; Status DC Lorazepam (Ativan) 1 mg Q4HP PRN PO ANXIETY Last administered on 01/08/19at 15:11; Start 01/08/19 at 14:00; Stop 01/14/19 at 09:42; Status DC Lorazepam (Ativan) 2 mg BID PRN PO ANXIETY/AGITATION; Start 01/08/19 at 10:30; Status Cancel Magnesium Hydroxide (Milk Of Magnesia) 30 ml DAILYPRN PRN PO CONSTIPATION; Start 01/01/19 at 12:15 Magnesium Hydroxide (Milk Of Magnesia) 30 ml DAILYPRN PRN PO CONSTIPATION; Start 01/08/19 at 06:45; Status UNV Metoprolol Succinate (TopROL XL) 25 mg QHS PO Last administered on 01/17/19at 21:45; Start 01/01/19 at 21:00 Nicotine (Nicoderm Cq 21mg) 1 patch DAILY PRN TD Craqving; Start 01/08/19 at 06:45; Status UNV Non-Formulary Medication ( See Comment Field Below ) SEE LABEL COMMENTS DAILY XX ; Start 01/13/19 at 09:00; Stop 01/15/19 at 10:26; Status DC Olanzapine (ZyPREXA ZYDIS) 2.5 mg QAM PO Last administered on 01/18/19at 08:27; Start 01/07/19 at 09:00 Olanzapine (ZyPREXA ZYDIS) 5 mg QHS PO Last administered on 01/17/19at 21:45; Start 01/06/19 at 21:00 Oxybutynin Chloride (Ditropan Xl) 10 mg DAILY PO Last administered on 01/18/19at 08:25; Start 01/01/19 at 09:00 Pantoprazole Sodium (Protonix) 40 mg DAILY PO Last administered on 01/18/19 08:27; Start 01/01/19 at 09:00 Polyethylene Glycol (Miralax) 1 pkt BIDP PRN PO constipation Last administered on 01/14/19 12:20; Start 01/08/19 at 16:45 Polyethylene Glycol (Miralax) 1 pkt DAILYPRN PRN PO CONSTIPATION Last administered on 01/08/19 14:58; Start 01/08/19 at 14:45; Stop 01/08/19 at 16:49; Status DC Pravastatin Sodium (Pravachol) 80 mg QHS PO Last administered on 01/17/19 21:45; Start 01/01/19 at 21:00 Quetiapine Fumarate (SEROquel) 25 mg QHS PO Last administered on 01/05/19 20:31; Start 01/03/19 at 21:00; Stop 01/06/19 at 10:46; Status DC Topiramate (TopAMAX) 50 mg BID PO Last administered on 01/04/19 20:49; Start 01/01/19 at 09:00; Stop 01/05/19 at 09:57; Status DC Trazodone HCl (Desyrel) 50 mg QHSP PRN PO INSOMNIA Last administered on 01/01/19 20:32; Start 01/01/19 at 12:15; Stop 01/02/19 at 11:15; Status DC Trazodone HCl (Desyrel) 50 mg QHSP PRN PO INSOMNIA; Start 01/08/19 at 06:45; Status UNV Trazodone HCl (Desyrel) 75 mg QHS PO Last administered on 01/17/19 21:45; Start 01/02/19 at 21:00 Vitamin D (Vitamin D) 200 units BID PO Last administered on 01/18/19 08:25; Start 01/01/19 at 09:00 Allergies Coded Allergies: Penicillins (Verified Allergy, Intermediate, hives, 12/28/18) fentanyl (Verified Allergy, Mild, itchy, 12/28/18) hydromorphone (Verified Allergy, Mild, itchy, 12/28/18) morphine (Verified Allergy, Mild, itchy, 12/28/18) NSAIDS (Non-Steroidal Anti-Inflamma (Verified Adverse Reaction, Intermediate, gi bleed, 12/28/18) aspirin (Verified Adverse Reaction, Intermediate, gi bleed, 12/28/18) celecoxib (Verified Adverse Reaction, Intermediate, gi bleed, 12/28/18) codeine (Verified Adverse Reaction, Mild, upset stomach, 12/28/18) methadone (Verified Adverse Reaction, Mild, confusion, 12/28/18) SUNSHINE CADET DO Jan 18, 2019 9:20 am
[2019-01-18] MEDS: PILL CUTTER 1 EACH XX PRN (20:33)
[2019-01-18] MEDS: PRAVASTATIN 20 MG TAB PO SCH (20:35)
[2019-01-18] MEDS: METOPROLOL SUCC *XL* 25MG TAB (TopROL *XL*) PO SCH (20:36)
[2019-01-18] MEDS: OLANZapine 10 MG TAB PO SCH (20:38)
[2019-01-18] MEDS: traZODone 50 MG TAB PO SCH (20:39)
[2019-01-18] MEDS: MIRALAX *UNIT DOSE* 17GM PACKET PO PRN (20:43)
[2019-01-19] MEDS: LEVOTHYROXINE 112MCG TABLET (0.112MG) PO SCH (06:31)
[2019-01-19 06:45] VITALS: BP 139/85
[2019-01-19] MEDS: FLUoxetine 20 MG CAP PO SCH (08:56)
[2019-01-19] MEDS: GABAPENTIN 400 MG CAP PO SCH ×2 (08:56→21:08)
[2019-01-19] MEDS: PANTOPRAZOLE 40MG TAB (PROTONIX) PO SCH (08:56)
[2019-01-19] MEDS: VITAMIN D (CHOLECALCIFEROL) 400 INTERNATIONAL UNITS TAB PO SCH ×2 (08:57→21:42)
[2019-01-19] MEDS: OYSTER SHELL CALCIUM 500 MG TAB PO SCH ×2 (08:57→21:08)
[2019-01-19] MEDS: OLANZapine ORAL DISINTEGRATING TAB 5MG PO SCH (08:57)
[2019-01-19] MEDS: oxyBUTYnin *DITROPAN XL* 5 MG TABCR PO SCH (08:58)
[2019-01-19] MEDS: cloNIDine 0.1 MG TAB PO SCH (08:58)
--- NOTE | 2019-01-19 09:30 | MHIPNPDOC ---
[facility] Progress Note Progress Note DATE OF SERVICE: 01/19/19 HISTORY: Patient is a 53 -year-old , female, with a history of depression, substance abuse, and PTSD (per pt) and no previous admission [facility] who was brought to [facility] by state police after she told officer she needed help b/c she was suicidal per ED. Pt stated in ED that she has been depressed since the of her close friend/neighbor who in his apt in 2015 and was not found until 12 days later even though pt states she asked the landlord to check on him multiple times. States she came to [facility] ED on 12/28/18 and wanted help but "didn't say the right things" to get the help she wanted per ED. Pt stated in ED that she was at [facility] earlier in morning on the day seen in [facility] ED and was treated for dehydration with IV fluids then d/c. Pt stated she was walk from hospital to her aunts house and saw a [facility] traffic police officer and decided to approach him and tell him she needed help and was suicidal per ED. Pt stated in ED that she felt her psychiatric meds weren't beneficial so she stopped her xanax, oxycodone, and paxil on the own w/o telling her provider at [facility]. Stated she was d/c by her therapist at [facility] earlier in December due to being told over the phone she was "too complicated" for the therapist w/o referral to another therapist per ED. She endorsed depression for months, pain medication abuse, and self starvation due to ther being "nothing to live for" and poor appetite in the ED. History gathered from Chart Review as pt not talk to me even though asked multiple times. VITAL SIGNS: improved with refeeding and hydration NEW TEST RESULTS: refused labs today ECG 12/31/18 Intervals [place] Rate: 53 P: 25 LA: 117 QRS: 51 QRSD: 88 T: 20 QT: 471 QTc: 443 Interpretive Statements SINUS BRADYCARDIA WITH SINUS ARRHYTHMIA WITH SHORT LA INTERVAL NSTTW ABNORMALITIES ECG 01/06/19 Intervals [place] Rate: 73 P: 66 LA: 147 QRS: 61 QRSD: 83 T: 33 QT: 364 QTc: 402 Interpretive Statements SINUS RHYTHM - heart rate increased with dehydration CURRENT MEDICATIONS: See below. MENTAL STATUS EXAMINATION: General Appearance: well groomed, appears stated age, attempting to read a book, seen walking milieu Build: average, tall Demeanor: less withdrawn, less preoccupied Eye Contact: fair Activity: more average Behavior: less withdrawn, improved psychomotor retardation Speech: slowed and slow to respond, is improving Mood: very depressed Mood "ok" Affect: less constricted, flat, appropriate, less psychomotor retardation, less anhedonia, less avolition Thought Process: slow, linear, logical w/less thought blocking and internal thought preoccupation Thought Content: Denies SI/HI Thought Content (Other): thought block and preoccupation Thought Content (Aggressive): none reported Perception (Hallucinations): denies AVH Perception (Other): none reported Cognition (Impairment of): slowed but improving Cognition(Intelligence Est.): average Oriented: Awake, Alert, Oriented times three Insight: very poor Judgment: very Poor Psychosis: denies DIAGNOSES: Major depressive d/o recurrent severe w/psychosis hx of opiate and benzodiazepine abuse R/O eating d/o unspecified/anorexia nervosa ASSESSMENT: Per staff, eating 100% of meals yesterday and today up trying to write out a safety plan for herself. Had a picture of a friend and her dog the friend is taking care of and smiled slightly while talking of her dog. States increase in meds beneficial as slept well and thoughts are less anxious, able to concentrate better. Has improved hunger feelings. Continues to appear depressed, but less anhedonic, and continues to be anxious with cognitive distortions regarding loss of loved ones. Denies SI, HI, hallucinations. Pt has improved energy and alertness with better nutrition. Very poor insight and judgement. She continues to endorse severe depression. She's tolerating her medicine well and feels it's beneficial. Pt is compliant with her medication. Encouraged to go to groups MANAGEMENT PLAN: continue plan. pt to have follow-up with medicine for starvation affecting physical health. Refer [facility] for skilled nursing treatment. medications: gabapentin 400mg bid trazodone 75mg qhs prn insomnia prozac 10mg daily vistaril 50mg q6hr prn anxiety. enusre shakes tid zyprexa zydis 10mg qhs and 2.5mg qam Ativan 2mg po prn bid anxiety secondary lab draw TIME SPENT: 30 minutes. Vital Signs Vital Signs Date Time Temp Pulse Resp B/P (MAP) Pulse Ox O2 Delivery O2 Flow Rate FiO2 7/16/19 08:58 130/85 01/19/19 08:40 Room Air 01/19/19 06:45 98.5 95 14 Current Medications Current Medications Acetaminophen (Tylenol Tab) 650 mg Q6HP PRN PO HEADACHE or DISCOMFORT Last administered on 01/09/19at 18:24; Start 01/01/19 at 12:15 Acetaminophen (Tylenol Tab) 650 mg Q6HP PRN PO HEADACHE or DISCOMFORT; Start 01/08/19 at 06:45; Status UNV Al Hydrox/Mg Hydrox/Simethicone (Mylanta) 30 ml Q4HP PRN PO HEARTBURN/INDIGESTION; Start 01/01/19 at 12:15 Al Hydrox/Mg Hydrox/Simethicone (Mylanta) 30 ml Q4HP PRN PO HEARTBURN/INDIGESTION; Start 01/08/19 at 06:45; Status UNV Calcium Carbonate (Oscal) 500 mg BID PO Last administered on 01/19/19at 08:57; Start 01/01/19 at 09:00 Clonidine HCl (Catapres) 0.1 mg DAILY PO Last administered on 01/19/19at 08:58; Start 01/01/19 at 09:00 Fluoxetine HCl (PROzac) 10 mg DAILY PO Last administered on 01/15/19at 09:44; Start 01/03/19 at 09:00; Stop 01/15/19 at 12:00; Status DC Fluoxetine HCl (PROzac) 20 mg DAILY PO Last administered on 01/19/19at 08:56; Start 01/16/19 at 09:00 Fluticasone Propionate (Flonase 0.05% Nasal [place]) 2 spray DAILY PRN NA NASAL CONGESTION; Start 01/01/19 at 12:15 Gabapentin (Neurontin) 400 mg BID PO Last administered on 01/19/19at 08:56; Start 01/01/19 at 09:00 Gabapentin (Neurontin) 400 mg BID PO ; Start 01/01/19 at 21:00; Stop 01/01/19 at 21:00; Status DC Home Med (Med Rec Complete!) ASDIRECTED XX ; Start 01/01/19 at 04:15; Stop 01/01/19 at 04:16; Status DC Hydroxyzine HCl (Atarax) 50 mg Q6HP PRN PO ANXIETY/AGITATION Last administered on 01/17/19at 22:45; Start 01/02/19 at 11:15 Levothyroxine Sodium (Synthroid) 112 mcg DAILY@0600 PO Last administered on 01/19/19at 06:31; Start 01/01/19 at 06:00 Lisinopril (Prinivil) 5 mg QHS PO Last administered on 01/03/19 21:31; Start 01/01/19 at 21:00; Stop 01/04/19 at 19:09; Status DC Lorazepam (Ativan) 1 mg Q4HP PRN PO ANXIETY Last administered on 01/08/19 15:11; Start 01/08/19 at 14:00; Stop 01/14/19 at 09:42; Status DC Lorazepam (Ativan) 2 mg BID PRN PO ANXIETY/AGITATION; Start 01/08/19 at 10:30; Status Cancel Magnesium Hydroxide (Milk Of Magnesia) 30 ml DAILYPRN PRN PO CONSTIPATION; Start 01/01/19 at 12:15 Magnesium Hydroxide (Milk Of Magnesia) 30 ml DAILYPRN PRN PO CONSTIPATION; Start 01/08/19 at 06:45; Status UNV Metoprolol Succinate (TopROL XL) 25 mg QHS PO Last administered on 01/18/19at 20:36; Start 01/01/19 at 21:00 Nicotine (Nicoderm Cq 21mg) 1 patch DAILY PRN TD Craqving; Start 01/08/19 at 06:45; Status UNV Non-Formulary Medication ( See Comment Field Below ) SEE LABEL COMMENTS DAILY XX ; Start 01/13/19 at 09:00; Stop 01/15/19 at 10:26; Status DC Olanzapine (ZyPREXA ZYDIS) 2.5 mg QAM PO Last administered on 01/19/19at 08:57; Start 01/07/19 at 09:00 Olanzapine (ZyPREXA ZYDIS) 5 mg QHS PO Last administered on 01/17/19 21:45; Start 01/06/19 at 21:00; Stop 01/18/19 at 11:10; Status DC Olanzapine (ZyPREXA) 10 mg QHS PO Last administered on 01/18/19at 20:38; Start 01/18/19 at 21:00 Oxybutynin Chloride (Ditropan Xl) 10 mg DAILY PO Last administered on 01/19/19 08:58; Start 01/01/19 at 09:00 Pantoprazole Sodium (Protonix) 40 mg DAILY PO Last administered on 01/19/19 08:56; Start 01/01/19 at 09:00 Polyethylene Glycol (Miralax) 1 pkt BIDP PRN PO constipation Last administered on 01/18/19 20:43; Start 01/08/19 at 16:45 Polyethylene Glycol (Miralax) 1 pkt DAILYPRN PRN PO CONSTIPATION Last administered on 01/08/19 14:58; Start 01/08/19 at 14:45; Stop 01/08/19 at 16:49; Status DC Pravastatin Sodium (Pravachol) 80 mg QHS PO Last administered on 01/18/19 20 :35; Start 01/01/19 at 21:00 Quetiapine Fumarate (SEROquel) 25 mg QHS PO Last administered on 01/05/19 20:31; Start 01/03/19 at 21:00; Stop 01/06/19 at 10:46; Status DC Topiramate (TopAMAX) 50 mg BID PO Last administered on 01/04/19 20:49; Start 01/01/19 at 09:00; Stop 01/05/19 at 09:57; Status DC Trazodone HCl (Desyrel) 50 mg QHSP PRN PO INSOMNIA Last administered on 01/01/19 20:32; Start 01/01/19 at 12:15; Stop 01/02/19 at 11:15; Status DC Trazodone HCl (Desyrel) 50 mg QHSP PRN PO INSOMNIA; Start 01/08/19 at 06:45; Status UNV Trazodone HCl (Desyrel) 75 mg QHS PO Last administered on 01/18/19 20:39; Start 01/02/19 at 21:00 Vitamin D (Vitamin D) 200 units BID PO Last administered on 01/19/19 08:57; Start 01/01/19 at 09:00 Allergies Coded Allergies: Penicillins (Verified Allergy, Intermediate, hives, 12/28/18) fentanyl (Verified Allergy, Mild, itchy, 12/28/18) hydromorphone (Verified Allergy, Mild, itchy, 12/28/18) morphine (Verified Allergy, Mild, itchy, 12/28/18) NSAIDS (Non-Steroidal Anti-Inflamma (Verified Adverse Reaction, Intermediate, gi bleed, 12/28/18) aspirin (Verified Adverse Reaction, Intermediate, gi bleed, 12/28/18) celecoxib (Verified Adverse Reaction, Intermediate, gi bleed, 12/28/18) codeine (Verified Adverse Reaction, Mild, upset stomach, 12/28/18) methadone (Verified Adverse Reaction, Mild, confusion, 12/28/18) SUNSHINE CADET DO Jan 19, 2019 9:30 am
[2019-01-19 18:11] VITALS: BP 127/90
[2019-01-19] MEDS: OLANZapine 10 MG TAB PO SCH (21:08)
[2019-01-19] MEDS: METOPROLOL SUCC *XL* 25MG TAB (TopROL *XL*) PO SCH (21:09)
[2019-01-19] MEDS: traZODone 50 MG TAB PO SCH (21:09)
[2019-01-19] MEDS: PRAVASTATIN 20 MG TAB PO SCH (21:09)
[2019-01-19] MEDS: PILL CUTTER 1 EACH XX PRN ×2 (21:10→21:42)
[2019-01-20] MEDS: LEVOTHYROXINE 112MCG TABLET (0.112MG) PO SCH (06:19)
[2019-01-20 06:58] VITALS: BP 123/75
--- NOTE | 2019-01-20 09:12 | MHIPNPDOC ---
[facility] Progress Note Progress Note DATE OF SERVICE: 01/20/19 HISTORY: Patient is a 53 -year-old , female, with a history of depression, substance abuse, and PTSD (per pt) and no previous admission [facility] who was brought to [facility] by state police after she told officer she needed help b/c she was suicidal per ED. Pt stated in ED that she has been depressed since the of her close friend/neighbor who in his apt in 2015 and was not found until 12 days later even though pt states she asked the landlord to check on him multiple times. States she came to [facility] ED on 12/28/18 and wanted help but "didn't say the right things" to get the help she wanted per ED. Pt stated in ED that she was at [facility] earlier in morning on the day seen in [facility] ED and was treated for dehydration with IV fluids then d/c. Pt stated she was walk from hospital to her aunts house and saw a [facility] police patrol lieutenant and decided to approach him and tell him she needed help and was suicidal per ED. Pt stated in ED that she felt her psychiatric meds weren't beneficial so she stopped her xanax, oxycodone, and paxil on the own w/o telling her provider at [facility]. Stated she was d/c by her therapist at [facility] earlier in December due to being told over the phone she was "too complicated" for the therapist w/o referral to another therapist per ED. She endorsed depression for months, pain medication abuse, and self starvation due to ther being "nothing to live for" and poor appetite in the ED. History gathered from Chart Review as pt not talk to me even though asked multiple times. VITAL SIGNS: improved with refeeding and hydration NEW TEST RESULTS: refused labs today ECG 12/31/18 Intervals [place] Rate: 53 P: 25 NH: 117 QRS: 51 QRSD: 88 T: 20 QT: 471 QTc: 443 Interpretive Statements SINUS BRADYCARDIA WITH SINUS ARRHYTHMIA WITH SHORT NH INTERVAL NSTTW ABNORMALITIES ECG 01/06/19 Intervals [place] Rate: 73 P: 66 NH: 147 QRS: 61 QRSD: 83 T: 33 QT: 364 QTc: 402 Interpretive Statements SINUS RHYTHM - heart rate increased with dehydration CURRENT MEDICATIONS: See below. MENTAL STATUS EXAMINATION: General Appearance: well groomed, appears stated age, attempting to read a book, seen walking milieu Build: average, tall Demeanor: less withdrawn, less preoccupied Eye Contact: fair Activity: more average Behavior: less withdrawn, improved psychomotor retardation Speech: slowed and slow to respond, is improving Mood: very depressed Mood "ok" Affect: less constricted, flat, appropriate, less psychomotor retardation, less anhedonia, less avolition Thought Process: slow, linear, logical w/less thought blocking and internal thought preoccupation Thought Content: Denies SI/HI Thought Content (Other): thought block and preoccupation Thought Content (Aggressive): none reported Perception (Hallucinations): denies AVH Perception (Other): none reported Cognition (Impairment of): slowed but improving Cognition(Intelligence Est.): average Oriented: Awake, Alert, Oriented times three Insight: very poor Judgment: very Poor Psychosis: denies DIAGNOSES: Major depressive d/o recurrent severe w/psychosis hx of opiate and benzodiazepine abuse R/O eating d/o unspecified/anorexia nervosa ASSESSMENT: Per staff, eating 100% of meals yesterday and today up trying to write out a safety plan for herself. Pt seen with menu in front of her with nothing filled out b/c doesn't know what to eat. States her favorite food is [place]. Explained menu to pt, how the selections work, and discussed with pt what things I've heard are good on the menu. Pt then started to fill out. States increase in meds beneficial as slept well and thoughts are less anxious, able to concentrate better. Has improved hunger feelings. Continues to appear depressed, but less anhedonic, and continues to be anxious with cognitive distortions regarding loss of loved ones although improving. Denies SI, HI, hallucinations. Pt has improved energy and alertness with better nutrition. Very poor insight and judgement. She continues to endorse severe depression. She's tolerating her medicine well and feels it's beneficial. Pt is compliant with her medication. Encouraged to go to groups MANAGEMENT PLAN: continue plan. pt to have follow-up with medicine for starvation affecting physical health. [facility] [place] [facility]. medications: gabapentin 400mg bid trazodone 75mg qhs prn insomnia prozac 10mg daily vistaril 50mg q6hr prn anxiety. enusre shakes tid zyprexa zydis 10mg qhs and 2.5mg qam Ativan 2mg po prn bid anxiety secondary lab draw TIME SPENT: 30 minutes. Vital Signs Vital Signs Date Time Temp Pulse Resp B/P (MAP) Pulse Ox O2 Delivery O2 Flow Rate FiO2 01/20/19 08:23 Room Air 01/20/19 06:58 98.0 67 18 123/75 (91) Current Medications Current Medications Acetaminophen (Tylenol Tab) 650 mg Q6HP PRN PO HEADACHE or DISCOMFORT Last adm inistered on 01/09/19at 18:24; Start 01/01/19 at 12:15 Acetaminophen (Tylenol Tab) 650 mg Q6HP PRN PO HEADACHE or DISCOMFORT; Start 01/08/19 at 06:45; Status UNV Al Hydrox/Mg Hydrox/Simethicone (Mylanta) 30 ml Q4HP PRN PO HEARTBURN/INDIGESTION; Start 01/01/19 at 12:15 Al Hydrox/Mg Hydrox/Simethicone (Mylanta) 30 ml Q4HP PRN PO HEARTBURN/INDIGESTION; Start 01/08/19 at 06:45; Status UNV Calcium Carbonate (Oscal) 500 mg BID PO Last administered on 01/19/19at 21:08; Start 01/01/19 at 09:00 Clonidine HCl (Catapres) 0.1 mg DAILY PO Last administered on 01/19/19at 08:58; Start 01/01/19 at 09:00 Fluoxetine HCl (PROzac) 10 mg DAILY PO Last administered on 01/15/19at 09:44; Start 01/03/19 at 09:00; Stop 01/15/19 at 12:00; Status DC Fluoxetine HCl (PROzac) 20 mg DAILY PO Last administered on 01/19/19at 08:56; Start 01/16/19 at 09:00 Fluticasone Propionate (Flonase 0.05% Nasal [place]) 2 spray DAILY PRN NA NASAL CONGESTION; Start 01/01/19 at 12:15 Gabapentin (Neurontin) 400 mg BID PO Last administered on 01/19/19at 21:08; Start 01/01/19 at 09:00 Gabapentin (Neurontin) 400 mg BID PO ; Start 01/01/19 at 21:00; Stop 01/01/19 at 21:00; Status DC Home Med (Med Rec Complete!) ASDIRECTED XX ; Start 01/01/19 at 04:15; Stop 01/01/19 at 04:16; Status DC Hydroxyzine HCl (Atarax) 50 mg Q6HP PRN PO ANXIETY/AGITATION Last administered on 01/17/19at 22:45; Start 01/02/19 at 11:15 Levothyroxine Sodium (Synthroid) 112 mcg DAILY@0600 PO Last administered on 01/20/19at 06:19; Start 01/01/19 at 06:00 Lisinopril (Prinivil) 5 mg QHS PO Last administered on 01/03/19at 21:31; Start 01/01/19 at 21:00; Stop 01/04/19 at 19:09; Status DC Lorazepam (Ativan) 1 mg Q4HP PRN PO ANXIETY Last administered on 01/08/19at 15:11; Start 01/08/19 at 14:00; Stop 01/14/19 at 09:42; Status DC Lorazepam (Ativan) 2 mg BID PRN PO ANXIETY/AGITATION; Start 01/08/19 at 10:30; Status Cancel Magnesium Hydroxide (Milk Of Magnesia) 30 ml DAILYPRN PRN PO CONSTIPATION; Start 01/01/19 at 12:15 Magnesium Hydroxide (Milk Of Magnesia) 30 ml DAILYPRN PRN PO CONSTIPATION; Start 01/08/19 at 06:45; Status UNV Metoprolol Succinate (TopROL XL) 25 mg QHS PO Last administered on 01/19/19at 21:09; Start 01/01/19 at 21:00 Nicotine (Nicoderm Cq 21mg) 1 patch DAILY PRN TD Craqving; Start 01/08/19 at 06:45; Status UNV Non-Formulary Medication ( See Comment Field Below ) SEE LABEL COMMENTS DAILY XX ; Start 01/13/19 at 09:00; Stop 01/15/19 at 10:26; Status DC Olanzapine (ZyPREXA ZYDIS) 2.5 mg QAM PO Last administered on 01/19/19at 08:57; Start 01/07/19 at 09:00 Olanzapine (ZyPREXA ZYDIS) 5 mg QHS PO Last administered on 01/17/19at 21:45; Start 01/06/19 at 21:00; Stop 01/18/19 at 11:10; Status DC Olanzapine (ZyPREXA) 10 mg QHS PO Last administered on 01/19/19 21:08; Start 01/18/19 at 21:00 Oxybutynin Chloride (Ditropan Xl) 10 mg DAILY PO Last administered on 01/19/19 08:58; Start 01/01/19 at 09:00 Pantoprazole Sodium (Protonix) 40 mg DAILY PO Last administered on 01/19/19 08:56; Start 01/01/19 at 09:00 Polyethylene Glycol (Miralax) 1 pkt BIDP PRN PO constipation Last administered on 01/18/19 20:43; Start 01/08/19 at 16:45 Polyethylene Glycol (Miralax) 1 pkt DAILYPRN PRN PO CONSTIPATION Last administered on 01/08/19 14:58; Start 01/08/19 at 14:45; Stop 01/08/19 at 16:49; Status DC Pravastatin Sodium (Pravachol) 80 mg QHS PO Last administered on 01/19/19 21:09; Start 01/01/19 at 21:00 Quetiapine Fumarate (SEROquel) 25 mg QHS PO Last administered on 01/05/19 20:31; Start 01/03/19 at 21:00; Stop 01/06/19 at 10:46; Status DC Topiramate (TopAMAX) 50 mg BID PO Last administered on 01/04/19 20:49; Start 01/01/19 at 09:00; Stop 01/05/19 at 09:57; Status DC Trazodone HCl (Desyrel) 50 mg QHSP PRN PO INSOMNIA Last administered on 01/01/19 20:32; Start 01/01/19 at 12:15; Stop 01/02/19 at 11:15; Status DC Trazodone HCl (Desyrel) 50 mg QHSP PRN PO INSOMNIA; Start 01/08/19 at 06:45; Status UNV Trazodone HCl (Desyrel) 75 mg QHS PO Last administered on 01/19/19 21:09; Start 01/02/19 at 21:00 Vitamin D (Vitamin D) 200 units BID PO Last administered on 7/16/19at 21:42; Start 01/01/19 at 09:00 Allergies Coded Allergies: Penicillins (Verified Allergy, Intermediate, hives, 12/28/18) fentanyl (Verified Allergy, Mild, itchy, 12/28/18) hydromorphone (Verified Allergy, Mild, itchy, 12/28/18) morphine (Verified Allergy, Mild, itchy, 12/28/18) NSAIDS (Non-Steroidal Anti-Inflamma (Verified Adverse Reaction, Intermed iate, gi bleed, 12/28/18) aspirin (Verified Adverse Reaction, Intermediate, gi bleed, 12/28/18) celecoxib (Verified Adverse Reaction, Intermediate, gi bleed, 12/28/18) codeine (Verified Adverse Reaction, Mild, upset stomach, 12/28/18) methadone (Verified Adverse Reaction, Mild, confusion, 12/28/18) SUNSHINE CADET DO Jan 20, 2019 9:12 am
[2019-01-20] MEDS: PANTOPRAZOLE 40MG TAB (PROTONIX) PO SCH (09:26)
[2019-01-20] MEDS: FLUoxetine 20 MG CAP PO SCH (09:26)
[2019-01-20] MEDS: GABAPENTIN 400 MG CAP PO SCH ×2 (09:26→22:31)
[2019-01-20] MEDS: OLANZapine ORAL DISINTEGRATING TAB 5MG PO SCH (09:27)
[2019-01-20] MEDS: oxyBUTYnin *DITROPAN XL* 5 MG TABCR PO SCH (09:27)
[2019-01-20] MEDS: cloNIDine 0.1 MG TAB PO SCH (09:28)
[2019-01-20] MEDS: OYSTER SHELL CALCIUM 500 MG TAB PO SCH ×2 (09:28→22:32)
[2019-01-20] MEDS: VITAMIN D (CHOLECALCIFEROL) 400 INTERNATIONAL UNITS TAB PO SCH ×2 (09:28→22:32)
[2019-01-20 18:10] VITALS: BP 115/74
[2019-01-20] MEDS: ACETAMINOPHEN TAB 650MG DOSE (2X325MG) PO PRN (18:17)
[2019-01-20] MEDS: OLANZapine 10 MG TAB PO SCH (22:31)
[2019-01-20] MEDS: traZODone 50 MG TAB PO SCH (22:31)
[2019-01-20] MEDS: METOPROLOL SUCC *XL* 25MG TAB (TopROL *XL*) PO SCH (22:32)
[2019-01-20] MEDS: PRAVASTATIN 20 MG TAB PO SCH (22:32)
[2019-01-21] MEDS: LEVOTHYROXINE 112MCG TABLET (0.112MG) PO SCH (05:47)
[2019-01-21 06:43] VITALS: BP 119/82
[2019-01-21] MEDS: oxyBUTYnin *DITROPAN XL* 5 MG TABCR PO SCH (09:03)
[2019-01-21] MEDS: GABAPENTIN 400 MG CAP PO SCH ×2 (09:03→21:27)
[2019-01-21] MEDS: cloNIDine 0.1 MG TAB PO SCH (09:03)
[2019-01-21] MEDS: PANTOPRAZOLE 40MG TAB (PROTONIX) PO SCH (09:03)
[2019-01-21] MEDS: FLUoxetine 20 MG CAP PO SCH (09:03)
[2019-01-21] MEDS: OLANZapine ORAL DISINTEGRATING TAB 5MG PO SCH (09:03)
[2019-01-21] MEDS: VITAMIN D (CHOLECALCIFEROL) 400 INTERNATIONAL UNITS TAB PO SCH ×2 (09:03→21:27)
[2019-01-21] MEDS: OYSTER SHELL CALCIUM 500 MG TAB PO SCH ×2 (09:03→21:27)
--- NOTE | 2019-01-21 09:51 | MHIPNPDOC ---
[facility] Progress Note Progress Note DATE OF SERVICE: 01/21/19 HISTORY: Patient is a 53 -year-old , female, with a history of depression, substance abuse, and PTSD (per pt) and no previous admission [facility] who was brought to [facility] by state police after she told officer she needed help b/c she was suicidal per ED. Pt stated in ED that she has been depressed since the of her close friend/neighbor who in his apt in 2015 and was not found until 12 days later even though pt states she asked the landlord to check on him multiple times. States she came to [facility] ED on 12/28/18 and wanted help but "didn't say the right things" to get the help she wanted per ED. Pt stated in ED that she was at [facility] earlier in morning on the day seen in [facility] ED and was treated for dehydration with IV fluids then d/c. Pt stated she was walk from hospital to her aunts house and saw a [facility] [employer] squad police officer and decided to approach him and tell him she needed help and was suicidal per ED. Pt stated in ED that she felt her psychiatric meds weren't beneficial so she stopped her xanax, oxycodone, and paxil on the own w/o telling her provider at [facility]. Stated she was d/c by her therapist at [facility] earlier in December due to being told over the phone she was "too complicated" for the therapist w/o referral to another therapist per ED. She endorsed depression for months, pain medication abuse, and self starvation due to ther being "nothing to live for" and poor appetite in the ED. History gathered from Chart Review as pt not talk to me even though asked multiple times. VITAL SIGNS: improved with refeeding and hydration NEW TEST RESULTS: refused labs today ECG 12/31/18 Intervals [place] Rate: 53 P: 25 GA: 117 QRS: 51 QRSD: 88 T: 20 QT: 471 QTc: 443 Interpretive Statements SINUS BRADYCARDIA WITH SINUS ARRHYTHMIA WITH SHORT GA INTERVAL NSTTW ABNORMALITIES ECG 01/06/19 Intervals [place] Rate: 73 P: 66 GA: 147 QRS: 61 QRSD: 83 T: 33 QT: 364 QTc: 402 Interpretive Statements SINUS RHYTHM - heart rate increased with dehydration CURRENT MEDICATIONS: See below. MENTAL STATUS EXAMINATION: General Appearance: well groomed, appears stated age, attempting to read a book, seen walking milieu Build: average, tall Demeanor: less withdrawn, less preoccupied Eye Contact: fair Activity: more average Behavior: less withdrawn, improved psychomotor retardation Speech: slowed and slow to respond, is improving Mood: very depressed Mood "ok" Affect: less constricted, flat, appropriate, less psychomotor retardation, less anhedonia, less avolition Thought Process: less slow, linear, logical w/less thought blocking and internal thought preoccupation Thought Content: Denies SI/HI Thought Content (Other): improved thought preoccupation Thought Content (Aggressive): none reported Perception (Hallucinations): denies AVH Perception (Other): none reported Cognition (Impairment of): slowed but improving Cognition(Intelligence Est.): average Oriented: Awake, Alert, Oriented times three Insight: very poor Judgment: very Poor Psychosis: denies DIAGNOSES: Major depressive d/o recurrent severe w/psychosis hx of opiate and benzodiazepine abuse R/O eating d/o unspecified/anorexia nervosa ASSESSMENT: Per staff, eating 100% of meals yesterday and today up trying to write out a safety plan for herself. Pt seen and her menu for tomorrow is all filled out appropriately. States increase in meds beneficial as slept well and thoughts are less anxious, able to concentrate better. Has improved hunger feelings. Continues to appear depressed, but less anhedonic, and continues to be anxious with cognitive distortions regarding loss of loved ones although improving. Denies SI, HI, hallucinations. Pt has improved energy and alertness with better nutrition. Poor insight and judgement. She continues to endorse severe depression. She's tolerating her medicine well and feels it's beneficial. Is going to some groups but not all as states she finds them overwhelming at times. Ecouraged to continue to go the best she can to learn coping mechanisms. Pt is compliant with her medication. Encouraged to go to groups MANAGEMENT PLAN: continue plan. pt to have follow-up with medicine for starvation affecting physical health. Refer to [facility] for nursing home treatment. medications: gabapentin 400mg bid trazodone 75mg qhs prn insomnia prozac 10mg daily vistaril 50mg q6hr prn anxiety. enusre shakes tid zyprexa zydis 10mg qhs and 2.5mg qam Ativan 2mg po prn bid anxiety secondary lab draw TIME SPENT: 30 minutes. Vital Signs Vital Signs Date Time Temp Pulse Resp B/P (MAP) Pulse Ox O2 Delivery O2 Flow Rate FiO2 01/21/19 09:03 119/82 01/21/19 08:27 Room Air 01/21/19 06:43 97.6 66 12 Current Medications Current Medications Acetaminophen (Tylenol Tab) 650 mg Q6HP PRN PO HEADACHE or DISCOMFORT Last administered on 01/20/19at 18:17; Start 01/01/19 at 12:15 Acetaminophen (Tylenol Tab) 650 mg Q6HP PRN PO HEADACHE or DISCOMFORT; Start 01/08/19 at 06:45; Status UNV Al Hydrox/Mg Hydrox/Simethicone (Mylanta) 30 ml Q4HP PRN PO HEARTBURN/INDIGES TION; Start 01/01/19 at 12:15 Al Hydrox/Mg Hydrox/Simethicone (Mylanta) 30 ml Q4HP PRN PO HEARTBURN/INDIGESTION; Start 01/08/19 at 06:45; Status UNV Calcium Carbonate (Oscal) 500 mg BID PO Last administered on 01/21/19at 09:03; Start 01/01/19 at 09:00 Clonidine HCl (Catapres) 0.1 mg DAILY PO Last administered on 01/21/19at 09:03; Start 01/01/19 at 09:00 Fluoxetine HCl (PROzac) 10 mg DAILY PO Last administered on 01/15/19at 09:44; Start 01/03/19 at 09:00; Stop 01/15/19 at 12:00; Status DC Fluoxetine HCl (PROzac) 20 mg DAILY PO Last administered on 01/21/19at 09:03; Start 01/16/19 at 09:00 Fluticasone Propionate (Flonase 0.05% Nasal [place]) 2 spray DAILY PRN NA NASAL CONGESTION; Start 01/01/19 at 12:15 Gabapentin (Neurontin) 400 mg BID PO Last administered on 01/21/19at 09:03; Start 01/01/19 at 09:00 Gabapentin (Neurontin) 400 mg BID PO ; Start 01/01/19 at 21:00; Stop 01/01/19 at 21:00; Status DC Home Med (Med Rec Complete!) ASDIRECTED XX ; Start 01/01/19 at 04:15; Stop 01/01/19 at 04:16; Status DC Hydroxyzine HCl (Atarax) 50 mg Q6HP PRN PO ANXIETY/AGITATION Last administered on 01/17/19at 22:45; Start 01/02/19 at 11:15 Levothyroxine Sodium (Synthroid) 112 mcg DAILY@0600 PO Last administered on 01/21/19at 05:47; Start 01/01/19 at 06:00 Lisinopril (Prinivil) 5 mg QHS PO Last administered on 01/03/19at 21:31; Start 01/01/19 at 21:00; Stop 01/04/19 at 19:09; Status DC Lorazepam (Ativan) 1 mg Q4HP PRN PO ANXIETY Last administered on 01/08/19at 15:11; Start 01/08/19 at 14:00; Stop 01/14/19 at 09:42; Status DC Lorazepam (Ativan) 2 mg BID PRN PO ANXIETY/AGITATION; Start 01/08/19 at 10:30; Status Cancel Magnesium Hydroxide (Milk Of Magnesia) 30 ml DAILYPRN PRN PO CONSTIPATION; Start 01/01/19 at 12:15 Magnesium Hydroxide (Milk Of Magnesia) 30 ml DAILYPRN PRN PO CONSTIPATION; Start 01/08/19 at 06:45; Status UNV Metoprolol Succinate (TopROL XL) 25 mg QHS PO Last administered on 01/20/19at 22:32; Start 01/01/19 at 21:00 Nicotine (Nicoderm Cq 21mg) 1 patch DAILY PRN TD Craqving; Start 01/08/19 at 06:45; Status UNV Non-Formulary Medication ( See Comment Field Below ) SEE LABEL COMMENTS DAILY XX ; Start 01/13/19 at 09:00; Stop 01/15/19 at 10:26; Status DC Olanzapine (ZyPREXA ZYDIS) 2.5 mg QAM PO Last administered on 01/21/19at 09:03; Start 01/07/19 at 09:00 Olanzapine (ZyPREXA ZYDIS) 5 mg QHS PO Last administered on 01/17/19at 21:45; Start 01/06/19 at 21:00; Stop 01/18/19 at 11:10; Status DC Olanzapine (ZyPREXA) 10 mg QHS PO Last administered on 01/20/19 22:31; Start 01/18/19 at 21:00 Oxybutynin Chloride (Ditropan Xl) 10 mg DAILY PO Last administered on 01/21/19 09:03; Start 01/01/19 at 09:00 Pantoprazole Sodium (Protonix) 40 mg DAILY PO Last administered on 01/21/19 09:03; Start 01/01/19 at 09:00 Polyethylene Glycol (Miralax) 1 pkt BIDP PRN PO constipation Last administered on 01/18/19 20:43; Start 01/08/19 at 16:45 Polyethylene Glycol (Miralax) 1 pkt DAILYPRN PRN PO CONSTIPATION Last administered on 01/08/19 14:58; Start 01/08/19 at 14:45; Stop 01/08/19 at 16:49; Status DC Pravastatin Sodium (Pravachol) 80 mg QHS PO Last administered on 01/20/19 22:32; Start 01/01/19 at 21:00 Quetiapine Fumarate (SEROquel) 25 mg QHS PO Last administered on 01/05/19 20:31; Start 01/03/19 at 21:00; Stop 01/06/19 at 10:46; Status DC Topiramate (TopAMAX) 50 mg BID PO Last administered on 01/04/19 20:49; Start 01/01/19 at 09:00; Stop 01/05/19 at 09:57; Status DC Trazodone HCl (Desyrel) 50 mg QHSP PRN PO INSOMNIA Last administered on 01/01/19 20:32; Start 01/01/19 at 12:15; Stop 01/02/19 at 11:15; Status DC Trazodone HCl (Desyrel) 50 mg QHSP PRN PO INSOMNIA; Start 01/08/19 at 06:45; Status UNV Trazodone HCl (Desyrel) 75 mg QHS PO Last administered on 01/20/19 22:31; Start 01/02/19 at 21:00 Vitamin D (Vitamin D) 200 units BID PO Last administered on 01/21/19 09:03; Start 01/01/19 at 09:00 Allergies Coded Allergies: Penicillins (Verified Allergy, Intermediate, hives, 12/28/18) fentanyl (Verified Allergy, Mild, itchy, 12/28/18) hydromorphone (Verified Allergy, Mild, itchy, 12/28/18) morphine (Verified Allergy, Mild, itchy, 12/28/18) NSAIDS (Non-Steroidal Anti-Inflamma (Verified Adverse Reaction, Intermediate, gi bleed, 12/28/18) aspirin (Verified Adverse Reaction, Intermediate, gi bleed, 12/28/18) celecoxib (Verified Adverse Reaction, Intermediate, gi bleed, 12/28/18) codeine (Verified Adverse Reaction, Mild, upset stomach, 12/28/18) methadone (Verified Adverse Reaction, Mild, confusion, 12/28/18) SUNSHINE CADET DO Jan 21, 2019 9:51 am
[2019-01-21 18:00] VITALS: BP 121/71
[2019-01-21] MEDS: OLANZapine 10 MG TAB PO SCH (21:27)
[2019-01-21] MEDS: traZODone 50 MG TAB PO SCH (21:27)
[2019-01-21] MEDS: PRAVASTATIN 20 MG TAB PO SCH (21:28)
[2019-01-21] MEDS: METOPROLOL SUCC *XL* 25MG TAB (TopROL *XL*) PO SCH (21:28)
[2019-01-22] MEDS: LEVOTHYROXINE 112MCG TABLET (0.112MG) PO SCH (06:12)
[2019-01-22 06:35] VITALS: BP 127/72
[2019-01-22] MEDS: OYSTER SHELL CALCIUM 500 MG TAB PO SCH ×2 (08:52→21:01)
[2019-01-22] MEDS: VITAMIN D (CHOLECALCIFEROL) 400 INTERNATIONAL UNITS TAB PO SCH ×2 (08:52→21:01)
[2019-01-22] MEDS: GABAPENTIN 400 MG CAP PO SCH ×2 (08:53→21:01)
[2019-01-22] MEDS: OLANZapine ORAL DISINTEGRATING TAB 5MG PO SCH (08:53)
[2019-01-22] MEDS: FLUoxetine 20 MG CAP PO SCH (08:53)
[2019-01-22] MEDS: cloNIDine 0.1 MG TAB PO SCH (08:53)
[2019-01-22] MEDS: oxyBUTYnin *DITROPAN XL* 5 MG TABCR PO SCH (08:54)
[2019-01-22] MEDS: PANTOPRAZOLE 40MG TAB (PROTONIX) PO SCH (08:54)
--- NOTE | 2019-01-22 09:18 | MHIPNPDOC ---
[facility] Progress Note Progress Note DATE OF SERVICE: 01/22/19 HISTORY: Patient is a 53 -year-old , female, with a history of depression, substance abuse, and PTSD (per pt) and no previous admission [facility] who was brought to [facility] by state police after she told officer she needed help b/c she was suicidal per ED. Pt stated in ED that she has been depressed since the of her close friend/neighbor who in his apt in 2015 and was not found until 12 days later even though pt states she asked the landlord to check on him multiple times. States she came to [facility] ED on 12/28/18 and wanted help but "didn't say the right things" to get the help she wanted per ED. Pt stated in ED that she was at [facility] earlier in morning on the day seen in [facility] ED and was treated for dehydration with IV fluids then d/c. Pt stated she was walk from hospital to her aunts house and saw a [facility] police detective and decided to approach him and tell him she needed help and was suicidal per ED. Pt stated in ED that she felt her psychiatric meds weren't beneficial so she stopped her xanax, oxycodone, and paxil on the own w/o telling her provider at [facility]. Stated she was d/c by her therapist at [facility] earlier in December due to being told over the phone she was "too complicated" for the therapist w/o referral to another therapist per ED. She endorsed depression for months, pain medication abuse, and self starvation due to ther being "nothing to live for" and poor appetite in the ED. History gathered from Chart Review as pt not talk to me even though asked multiple times. VITAL SIGNS: improved with refeeding and hydration NEW TEST RESULTS: refused labs today ECG 12/31/18 Intervals [place] Rate: 53 P: 25 ND: 117 QRS: 51 QRSD: 88 T: 20 QT: 471 QTc: 443 Interpretive Statements SINUS BRADYCARDIA WITH SINUS ARRHYTHMIA WITH SHORT ND INTERVAL NSTTW ABNORMALITIES ECG 01/06/19 Intervals [place] Rate: 73 P: 66 ND: 147 QRS: 61 QRSD: 83 T: 33 QT: 364 QTc: 402 Interpretive Statements SINUS RHYTHM - heart rate increased with dehydration CURRENT MEDICATIONS: See below. MENTAL STATUS EXAMINATION: General Appearance: well groomed, appears stated age, attempting to read a book, seen walking milieu Build: average, tall Demeanor: less withdrawn, less preoccupied Eye Contact: fair Activity: more average Behavior: less withdrawn, improved psychomotor retardation Speech: slowed and slow to respond, is improving Mood: very depressed Mood "ok" Affect: less constricted, flat, appropriate, less psychomotor retardation, less anhedonia, less avolition Thought Process: less slow, linear, logical w/less thought blocking and internal thought preoccupation Thought Content: Denies SI/HI Thought Content (Other): improved thought preoccupation Thought Content (Aggressive): none reported Perception (Hallucinations): denies AVH Perception (Other): none reported Cognition (Impairment of): slowed but improving Cognition(Intelligence Est.): average Oriented: Awake, Alert, Oriented times three Insight: very poor Judgment: very Poor Psychosis: denies DIAGNOSES: Major depressive d/o recurrent severe w/psychosis hx of opiate and benzodiazepine abuse R/O eating d/o unspecified/anorexia nervosa ASSESSMENT: Per staff, eating 100% of meals yesterday and today up trying to write out a safety plan for herself. Pt seen and her menu for tomorrow is all filled out appropriately. States increase in meds beneficial as slept well and thoughts are less anxious, able to concentrate better. Has improved hunger feelings. Continues to appear depressed, but less anhedonic, and continues to be anxious with cognitive distortions regarding loss of loved ones although improving. Denies SI, HI, hallucinations. Pt has improved energy and alertness with better nutrition. Poor insight and judgement. She continues to endorse severe depression. She's tolerating her medicine well and feels it's beneficial. Is going to some groups but not all as states she finds them overwhelming at times. Encouraged to continue to go the best she can to learn coping mechanisms. States she used to do a lot of crafts that she enjoyed on her own at home so highly encouraged to go to activities groups to get in touch with the person she was as she doesn't feel like that anymore. Pt is compliant with her medication. Encouraged to go to groups MANAGEMENT PLAN: continue plan. Refer to [facility] for termite control servicer treatment. medications: gabapentin 400mg bid trazodone 75mg qhs prn insomnia prozac 20mg daily vistaril 50mg q6hr prn anxiety. enusre shakes tid zyprexa zydis 10mg qhs and 2.5mg qam Ativan 2mg po prn bid anxiety secondary lab draw TIME SPENT: 30 minutes. Vital Signs Vital Signs Date Time Temp Pulse Resp B/P (MAP) Pulse Ox O2 Delivery O2 Flow Rate FiO2 01/22/19 08:53 113/78 01/22/19 06:35 97.6 63 14 01/21/19 08:27 Room Air Current Medications Current Medications Acetaminophen (Tylenol Tab) 650 mg Q6HP PRN PO HEADACHE or DISCOMFORT Last administered on 01/20/19 18:17; Start 01/01/19 at 12:15 Acetaminophen (Tylenol Tab) 650 mg Q6HP PRN PO HEADACHE or DISCOMFORT; Start 01/08/19 at 06:45; Status UNV Al Hydrox/Mg Hydrox/Simethicone (Mylanta) 30 ml Q4HP PRN PO HEARTBURN/INDIGES TION; Start 01/01/19 at 12:15 Al Hydrox/Mg Hydrox/Simethicone (Mylanta) 30 ml Q4HP PRN PO HEARTBURN/INDIGESTION; Start 01/08/19 at 06:45; Status UNV Calcium Carbonate (Oscal) 500 mg BID PO Last administered on 01/22/19at 08:52; Start 01/01/19 at 09:00 Clonidine HCl (Catapres) 0.1 mg DAILY PO Last administered on 01/22/19at 08:53; Start 01/01/19 at 09:00 Fluoxetine HCl (PROzac) 10 mg DAILY PO Last administered on 01/15/19at 09:44; Start 01/03/19 at 09:00; Stop 01/15/19 at 12:00; Status DC Fluoxetine HCl (PROzac) 20 mg DAILY PO Last administered on 01/22/19at 08:53; Start 01/16/19 at 09:00 Fluticasone Propionate (Flonase 0.05% Nasal [place]) 2 spray DAILY PRN NA NASAL CONGESTION; Start 01/01/19 at 12:15 Gabapentin (Neurontin) 400 mg BID PO Last administered on 01/22/19 08:53; Start 01/01/19 at 09:00 Gabapentin (Neurontin) 400 mg BID PO ; Start 01/01/19 at 21:00; Stop 01/01/19 at 21:00; Status DC Home Med (Med Rec Complete!) ASDIRECTED XX ; Start 01/01/19 at 04:15; Stop 01/01/19 at 04:16; Status DC Hydroxyzine HCl (Atarax) 50 mg Q6HP PRN PO ANXIETY/AGITATION Last administered on 01/17/19at 22:45; Start 01/02/19 at 11:15 Levothyroxine Sodium (Synthroid) 112 mcg DAILY@0600 PO Last administered on 01/22/19at 06:12; Start 01/01/19 at 06:00 Lisinopril (Prinivil) 5 mg QHS PO Last administered on 01/03/19at 21:31; Start 01/01/19 at 21:00; Stop 01/04/19 at 19:09; Status DC Lorazepam (Ativan) 1 mg Q4HP PRN PO ANXIETY Last administered on 01/08/19at 15:11; Start 01/08/19 at 14:00; Stop 01/14/19 at 09:42; Status DC Lorazepam (Ativan) 2 mg BID PRN PO ANXIETY/AGITATION; Start 01/08/19 at 10:30; Status Cancel Magnesium Hydroxide (Milk Of Magnesia) 30 ml DAILYPRN PRN PO CONSTIPATION; Start 01/01/19 at 12:15 Magnesium Hydroxide (Milk Of Magnesia) 30 ml DAILYPRN PRN PO CONSTIPATION; Start 01/08/19 at 06:45; Status UNV Metoprolol Succinate (TopROL XL) 25 mg QHS PO Last administered on 01/21/19at 21:28; Start 01/01/19 at 21:00 Nicotine (Nicoderm Cq 21mg) 1 patch DAILY PRN TD Craqving; Start 01/08/19 at 06:45; Status UNV Non-Formulary Medication ( See Comment Field Below ) SEE LABEL COMMENTS DAILY XX ; Start 01/13/19 at 09:00; Stop 01/15/19 at 10:26; Status DC Olanzapine (ZyPREXA ZYDIS) 2.5 mg QAM PO Last administered on 01/22/19at 08:53; Start 01/07/19 at 09:00 Olanzapine (ZyPREXA ZYDIS) 5 mg QHS PO Last administered on 01/17/19 21:45; Start 01/06/19 at 21:00; Stop 01/18/19 at 11:10; Status DC Olanzapine (ZyPREXA) 10 mg QHS PO Last administered on 01/21/19 21:27; Start 01/18/19 at 21:00 Oxybutynin Chloride (Ditropan Xl) 10 mg DAILY PO Last administered on 01/22/19 08:54; Start 01/01/19 at 09:00 Pantoprazole Sodium (Protonix) 40 mg DAILY PO Last administered on 01/22/19 08:54; Start 01/01/19 at 09:00 Polyethylene Glycol (Miralax) 1 pkt BIDP PRN PO constipation Last administered on 01/18/19 20:43; Start 01/08/19 at 16:45 Polyethylene Glycol (Miralax) 1 pkt DAILYPRN PRN PO CONSTIPATION Last administered on 01/08/19 14:58; Start 01/08/19 at 14:45; Stop 01/08/19 at 16:49; Status DC Pravastatin Sodium (Pravachol) 80 mg QHS PO Last administered on 01/21/19 21:28; Start 01/01/19 at 21:00 Quetiapine Fumarate (SEROquel) 25 mg QHS PO Last administered on 01/05/19 20:31; Start 01/03/19 at 21:00; Stop 01/06/19 at 10:46; Status DC Topiramate (TopAMAX) 50 mg BID PO Last administered on 01/04/19 20:49; Start 01/01/19 at 09:00; Stop 01/05/19 at 09:57; Status DC Trazodone HCl (Desyrel) 50 mg QHSP PRN PO INSOMNIA Last administered on 01/01/19 20:32; Start 01/01/19 at 12:15; Stop 01/02/19 at 11:15; Status DC Trazodone HCl (Desyrel) 50 mg QHSP PRN PO INSOMNIA; Start 01/08/19 at 06:45; Status UNV Trazodone HCl (Desyrel) 75 mg QHS PO Last administered on 01/21/19 21:27; Start 01/02/19 at 21:00 Vitamin D (Vitamin D) 200 units BID PO Last administered on 01/22/19at 08:52; Start 01/01/19 at 09:00 Allergies Coded Allergies: Penicillins (Verified Allergy, Intermediate, hives, 12/28/18) fentanyl (Verified Allergy, Mild, itchy, 12/28/18) hydromorphone (Verified Allergy, Mild, itchy, 12/28/18) morphine (Verified Allergy, Mild, itchy, 12/28/18) NSAIDS (Non-Steroidal Anti-Inflamma (Verified Adverse Reaction, Intermediate, gi bleed, 12/28/18) aspirin (Verified Adverse Reaction, Intermediate, gi bleed, 12/28/18) celecoxib (Verified Adverse Reaction, Intermediate, gi bleed, 12/28/18) codeine (Verified Adverse Reaction, Mild, upset stomach, 12/28/18) methadone (Verified Adverse Reaction, Mild, confusion, 12/28/18) SUNSHINE CADET DO Jan 22, 2019 9:18 am
[2019-01-22 18:00] VITALS: BP 116/72
[2019-01-22] MEDS: OLANZapine 10 MG TAB PO SCH (21:01)
[2019-01-22] MEDS: PRAVASTATIN 20 MG TAB PO SCH (21:01)
[2019-01-22] MEDS: ACETAMINOPHEN TAB 650MG DOSE (2X325MG) PO PRN (21:01)
[2019-01-22] MEDS: METOPROLOL SUCC *XL* 25MG TAB (TopROL *XL*) PO SCH (21:01)
[2019-01-22] MEDS: traZODone 50 MG TAB PO SCH (21:02)
[2019-01-23] MEDS: LEVOTHYROXINE 112MCG TABLET (0.112MG) PO SCH (06:20)
[2019-01-23 06:32] VITALS: BP 122/77
[2019-01-23] MEDS: GABAPENTIN 400 MG CAP PO SCH ×2 (08:35→20:47)
[2019-01-23] MEDS: PANTOPRAZOLE 40MG TAB (PROTONIX) PO SCH (08:35)
[2019-01-23] MEDS: hydrOXYzine 50 MG TAB PO PRN ×2 (08:35→15:46)
[2019-01-23] MEDS: FLUoxetine 20 MG CAP PO SCH (08:35)
[2019-01-23] MEDS: oxyBUTYnin *DITROPAN XL* 5 MG TABCR PO SCH (08:36)
[2019-01-23] MEDS: OYSTER SHELL CALCIUM 500 MG TAB PO SCH ×2 (08:36→20:47)
[2019-01-23] MEDS: cloNIDine 0.1 MG TAB PO SCH (08:36)
[2019-01-23] MEDS: OLANZapine ORAL DISINTEGRATING TAB 5MG PO SCH (08:36)
[2019-01-23] MEDS: VITAMIN D (CHOLECALCIFEROL) 400 INTERNATIONAL UNITS TAB PO SCH ×2 (08:36→20:48)
[2019-01-23 18:07] VITALS: BP 120/77
[2019-01-23] MEDS: METOPROLOL SUCC *XL* 25MG TAB (TopROL *XL*) PO SCH (20:47)
[2019-01-23] MEDS: PRAVASTATIN 20 MG TAB PO SCH (20:47)
[2019-01-23] MEDS: OLANZapine 10 MG TAB PO SCH (20:48)
[2019-01-23] MEDS: traZODone 50 MG TAB PO SCH (20:48)
[2019-01-23] MEDS: PILL CUTTER 1 EACH XX PRN (20:58)
[2019-01-24] MEDS: LEVOTHYROXINE 112MCG TABLET (0.112MG) PO SCH (06:01)
[2019-01-24 06:51] VITALS: BP 125/83
[2019-01-24] MEDS: PANTOPRAZOLE 40MG TAB (PROTONIX) PO SCH (09:01)
[2019-01-24] MEDS: OLANZapine ORAL DISINTEGRATING TAB 5MG PO SCH (09:01)
[2019-01-24] MEDS: GABAPENTIN 400 MG CAP PO SCH ×2 (09:01→21:30)
[2019-01-24] MEDS: FLUoxetine 20 MG CAP PO SCH (09:01)
[2019-01-24] MEDS: OYSTER SHELL CALCIUM 500 MG TAB PO SCH ×2 (09:02→21:31)
[2019-01-24] MEDS: VITAMIN D (CHOLECALCIFEROL) 400 INTERNATIONAL UNITS TAB PO SCH ×2 (09:02→21:31)
[2019-01-24] MEDS: oxyBUTYnin *DITROPAN XL* 5 MG TABCR PO SCH (09:02)
[2019-01-24] MEDS: cloNIDine 0.1 MG TAB PO SCH (09:02)
[2019-01-24 18:05] VITALS: BP 110/63
[2019-01-24] MEDS: OLANZapine 10 MG TAB PO SCH (21:30)
[2019-01-24] MEDS: PRAVASTATIN 20 MG TAB PO SCH (21:31)
[2019-01-24] MEDS: traZODone 50 MG TAB PO SCH (21:31)
[2019-01-24] MEDS: METOPROLOL SUCC *XL* 25MG TAB (TopROL *XL*) PO SCH (21:31)
[2019-01-24] MEDS: ACETAMINOPHEN TAB 650MG DOSE (2X325MG) PO PRN (21:37)
[2019-01-25] MEDS: LEVOTHYROXINE 112MCG TABLET (0.112MG) PO SCH (06:23)
[2019-01-25 07:01] VITALS: BP 128/78
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
[2019-01-25] MEDS: oxyBUTYnin *DITROPAN XL* 5 MG TABCR PO SCH (09:33)
[2019-01-25] MEDS: PANTOPRAZOLE 40MG TAB (PROTONIX) PO SCH (09:33)
[2019-01-25] MEDS: OLANZapine ORAL DISINTEGRATING TAB 5MG PO SCH (09:33)
[2019-01-25] MEDS: GABAPENTIN 400 MG CAP PO SCH ×2 (09:33→21:08)
[2019-01-25] MEDS: FLUoxetine 20 MG CAP PO SCH (09:33)
[2019-01-25] MEDS: PILL CUTTER 1 EACH XX PRN (09:33)
[2019-01-25] MEDS: VITAMIN D (CHOLECALCIFEROL) 400 INTERNATIONAL UNITS TAB PO SCH ×2 (09:34→21:07)
[2019-01-25] MEDS: OYSTER SHELL CALCIUM 500 MG TAB PO SCH ×2 (09:34→21:09)
[2019-01-25] MEDS: cloNIDine 0.1 MG TAB PO SCH (09:34)
[2019-01-25] MEDS: hydrOXYzine 50 MG TAB PO PRN (14:42)
[2019-01-25] MEDS: ACETAMINOPHEN TAB 650MG DOSE (2X325MG) PO PRN ×2 (14:43→21:10)
[2019-01-25 18:00] VITALS: BP 115/77
[2019-01-25] MEDS: METOPROLOL SUCC *XL* 25MG TAB (TopROL *XL*) PO SCH (21:07)
[2019-01-25] MEDS: OLANZapine 10 MG TAB PO SCH (21:08)
[2019-01-25] MEDS: PRAVASTATIN 20 MG TAB PO SCH (21:08)
[2019-01-25] MEDS: traZODone 50 MG TAB PO SCH (21:08)
[2019-01-26] MEDS: LEVOTHYROXINE 112MCG TABLET (0.112MG) PO SCH (06:07)
[2019-01-26 06:40] VITALS: BP 134/76
[2019-01-26] MEDS: VITAMIN D (CHOLECALCIFEROL) 400 INTERNATIONAL UNITS TAB PO SCH ×2 (09:22→20:10)
[2019-01-26] MEDS: PANTOPRAZOLE 40MG TAB (PROTONIX) PO SCH (09:22)
[2019-01-26] MEDS: GABAPENTIN 400 MG CAP PO SCH ×2 (09:22→20:13)
[2019-01-26] MEDS: OLANZapine ORAL DISINTEGRATING TAB 5MG PO SCH (09:22)
[2019-01-26] MEDS: FLUoxetine 20 MG CAP PO SCH (09:22)
[2019-01-26] MEDS: PILL CUTTER 1 EACH XX PRN ×2 (09:22→20:10)
[2019-01-26] MEDS: OYSTER SHELL CALCIUM 500 MG TAB PO SCH ×2 (09:22→20:13)
[2019-01-26] MEDS: cloNIDine 0.1 MG TAB PO SCH (09:22)
[2019-01-26] MEDS: oxyBUTYnin *DITROPAN XL* 5 MG TABCR PO SCH (09:23)
--- NOTE | 2019-01-26 09:52 | MHIPNPDOC ---
[facility] Progress Note Progress Note DATE OF SERVICE: 01/26/19 HISTORY: Patient is a 53 -year-old , female, with a history of depression, substance abuse, and PTSD (per pt) and no previous admission [facility] who was brought to [facility] by state police after she told officer she needed help b/c she was suicidal per ED. Pt stated in ED that she has been depressed since the of her close friend/neighbor who in his apt in 2015 and was not found until 12 days later even though pt states she asked the landlord to check on him multiple times. States she came to [facility] ED on 12/28/18 and wanted help but "didn't say the right things" to get the help she wanted per ED. Pt stated in ED that she was at [facility] earlier in morning on the day seen in [facility] ED and was treated for dehydration with IV fluids then d/c. Pt stated she was walk from hospital to her aunts house and saw a [facility] police service technician and decided to approach him and tell him she needed help and was suicidal per ED. Pt stated in ED that she felt her psychiatric meds weren't beneficial so she stopped her xanax, oxycodone, and paxil on the own w/o telling her provider at [facility]. Stated she was d/c by her therapist at [facility] earlier in December due to being told over the phone she was "too complicated" for the therapist w/o referral to another therapist per ED. She endorsed depression for months, pain medication abuse, and self starvation due to ther being "nothing to live for" and poor appetite in the ED. History gathered from Chart Review as pt not talk to me even though asked multiple times. VITAL SIGNS: see below NEW TEST RESULTS: see below CURRENT MEDICATIONS: See below. MENTAL STATUS EXAMINATION: General Appearance: well groomed, appears stated age, sitting at desk in her room Build: average, tall Demeanor: less withdrawn, mildly irritable Eye Contact: good Activity: average Behavior: less withdrawn Speech: reg rate/rhythm/volume Mood: irritable Mood "I want to go home" Affect: irritable, appropriate Thought Process: linear, logical, hypervigilance/avoidance of men (hx ptsd) Thought Content: Denies SI/HI Thought Content (Other): none reported Thought Content (Aggressive): none reported Perception (Hallucinations): denies AVH Perception (Other): none reported Cognition (Impairment of): awake, alert, oriented Cognition(Intelligence Est.): average Oriented: Awake, Alert, Oriented times three Insight: improving Judgment: improving Psychosis: denies DIAGNOSES: Major depressive d/o recurrent severe w/psychosis hx of opiate and benzodiazepine abuse R/O eating d/o unspecified/anorexia nervosa ASSESSMENT: Per staff, eating 100% of meals yesterday and today up trying to write out a safety plan for herself. Pt seen and appears irritable as she states she feels ready to go home. States she misses her friends and apt. Admits she has anxiety especially around men since she was 16y/o and "that is not something that will change" which makes attending groups and being around others (men) very difficult which is why she remains in her room mostly. States she has a close group of supportive friends at home and does well in her daily life with their support. States meds beneficial as she slept well and thoughts are less anxious, able to concentrate better. Has improved hunger feelings. Appears irritable with a more broad range in mood. Continues to have anxiety due to hypervigilance and avoidance of men secondary history PTSD. Denies SI, HI, hallucinations. Pt has improved energy and alertness with better nutrition. Improving insight and judgement. She denies severe depression. She's tolerating her medicine well and feels it's beneficial. Encouraged to continue to go to groups the best she can to learn coping mechanisms. States she used to do a lot of crafts that she enjoyed on her own at home so highly encouraged to go to activities groups to get in touch with the person she was as she doesn't feel like that anymore. Pt is compliant with her medication. MANAGEMENT PLAN: continue plan. Possible d/c home later this week medications: gabapentin 400mg bid trazodone 75mg qhs prn insomnia prozac 20mg daily vistaril 50mg q6hr prn anxiety. enusre shakes tid zyprexa zydis 10mg qhs and 2.5mg qam Ativan 2mg po prn bid anxiety secondary lab draw TIME SPENT: 30 minutes. Vital Signs Vital Signs Date Time Temp Pulse Resp B/P (MAP) Pulse Ox O2 Delivery O2 Flow Rate FiO2 01/26/19 09:22 112/80 01/26/19 06:40 98.1 87 14 01/24/19 07:54 Room Air Current Medications Current Medications Acetaminophen (Tylenol Tab) 650 mg Q6HP PRN PO HEADACHE or DISCOMFORT Last administered on 01/25/19at 21:10; Start 01/01/19 at 12:15 Acetaminophen (Tylenol Tab) 650 mg Q6HP PRN PO HEADACHE or DISCOMFORT; Start 01/08/19 at 06:45; Status UNV Al Hydrox/Mg Hydrox/Simethicone (Mylanta) 30 ml Q4HP PRN PO HEARTBURN/INDIGESTION; Start 01/01/19 at 12:15 Al Hydrox/Mg Hydrox/Simethicone (Mylanta) 30 ml Q4HP PRN PO HEARTBURN/INDIGESTION; Start 01/08/19 at 06:45; Status UNV Calcium Carbonate (Oscal) 500 mg BID PO Last administered on 01/26/19at 09:22; Start 01/01/19 at 09:00 Clonidine HCl (Catapres) 0.1 mg DAILY PO Last administered on 01/26/19at 09:22; Start 01/01/19 at 09:00 Fluoxetine HCl (PROzac) 10 mg DAILY PO Last administered on 01/15/19at 09:44; Start 01/03/19 at 09:00; Stop 01/15/19 at 12:00; Status DC Fluoxetine HCl (PROzac) 20 mg DAILY PO Last administered on 01/26/19at 09:22; Start 01/16/19 at 09:00 Fluticasone Propionate (Flonase 0.05% Nasal [place]) 2 spray DAILY PRN NA NASAL CONGESTION; Start 01/01/19 at 12:15 Gabapentin (Neurontin) 400 mg BID PO Last administered on 01/26/19at 09:22; Start 01/01/19 at 09:00 Gabapentin (Neurontin) 400 mg BID PO ; Start 01/01/19 at 21:00; Stop 01/01/19 at 21:00; Status DC Home Med (Med Rec Complete!) ASDIRECTED XX ; Start 01/01/19 at 04:15; Stop 01/01/19 at 04:16; Status DC Hydroxyzine HCl (Atarax) 50 mg Q6HP PRN PO ANXIETY/AGITATION Last administered on 01/25/19at 14:42; Start 01/02/19 at 11:15 Levothyroxine Sodium (Synthroid) 112 mcg DAILY@0600 PO Last administered on 01/26/19at 06:07; Start 01/01/19 at 06:00 Lisinopril (Prinivil) 5 mg QHS PO Last administered on 01/03/19 21:31; Start 01/01/19 at 21:00; Stop 01/04/19 at 19:09; Status DC Lorazepam (Ativan) 1 mg Q4HP PRN PO ANXIETY Last administered on 01/08/19at 15:11; Start 01/08/19 at 14:00; Stop 01/14/19 at 09:42; Status DC Lorazepam (Ativan) 2 mg BID PRN PO ANXIETY/AGITATION; Start 01/08/19 at 10:30; Status Cancel Magnesium Hydroxide (Milk Of Magnesia) 30 ml DAILYPRN PRN PO CONSTIPATION; Start 01/01/19 at 12:15 Magnesium Hydroxide (Milk Of Magnesia) 30 ml DAILYPRN PRN PO CONSTIPATION; Start 01/08/19 at 06:45; Status UNV Metoprolol Succinate (TopROL XL) 25 mg QHS PO Last administered on 01/25/19at 21:07; Start 01/01/19 at 21:00 Nicotine (Nicoderm Cq 21mg) 1 patch DAILY PRN TD Craqving; Start 01/08/19 at 06:45; Status UNV Non-Formulary Medication ( See Comment Field Below ) SEE LABEL COMMENTS DAILY XX ; Start 01/13/19 at 09:00; Stop 01/15/19 at 10:26; Status DC Olanzapine (ZyPREXA ZYDIS) 2.5 mg QAM PO Last administered on 01/26/19at 09:22; Start 01/07/19 at 09:00 Olanzapine (ZyPREXA ZYDIS) 5 mg QHS PO Last administered on 01/17/19at 21:45; Start 01/06/19 at 21:00; Stop 01/18/19 at 11:10; Status DC Olanzapine (ZyPREXA) 10 mg QHS PO Last administered on 01/25/19at 21:08; Start 01/18/19 at 21:00 Oxybutynin Chloride (Ditropan Xl) 10 mg DAILY PO Last administered on 01/26/19 09:23; Start 01/01/19 at 09:00 Pantoprazole Sodium (Protonix) 40 mg DAILY PO Last administered on 01/26/19 09:22; Start 01/01/19 at 09:00 Polyethylene Glycol (Miralax) 1 pkt BIDP PRN PO constipation Last administered on 01/18/19 20:43; Start 01/08/19 at 16:45 Polyethylene Glycol (Miralax) 1 pkt DAILYPRN PRN PO CONSTIPATION Last administered on 01/08/19 14:58; Start 01/08/19 at 14:45; Stop 01/08/19 at 16:49; Status DC Pravastatin Sodium (Pravachol) 80 mg QHS PO Last administered on 01/25/19 21: 08; Start 01/01/19 at 21:00 Quetiapine Fumarate (SEROquel) 25 mg QHS PO Last administered on 01/05/19 20:31; Start 01/03/19 at 21:00; Stop 01/06/19 at 10:46; Status DC Topiramate (TopAMAX) 50 mg BID PO Last administered on 01/04/19 20:49; Start 01/01/19 at 09:00; Stop 01/05/19 at 09:57; Status DC Trazodone HCl (Desyrel) 50 mg QHSP PRN PO INSOMNIA Last administered on 01/01/19 20:32; Start 01/01/19 at 12:15; Stop 01/02/19 at 11:15; Status DC Trazodone HCl (Desyrel) 50 mg QHSP PRN PO INSOMNIA; Start 01/08/19 at 06:45; Status UNV Trazodone HCl (Desyrel) 75 mg QHS PO Last administered on 01/25/19 21:08; Start 01/02/19 at 21:00 Vitamin D (Vitamin D) 200 units BID PO Last administered on 01/26/19 09:22; Start 01/01/19 at 09:00 Allergies Coded Allergies: Penicillins (Verified Allergy, Intermediate, hives, 12/28/18) fentanyl (Verified Allergy, Mild, itchy, 12/28/18) hydromorphone (Verified Allergy, Mild, itchy, 12/28/18) morphine (Verified Allergy, Mild, itchy, 12/28/18) NSAIDS (Non-Steroidal Anti-Inflamma (Verified Adverse Reaction, Intermediate, gi bleed, 12/28/18) aspirin (Verified Adverse Reaction, Intermediate, gi bleed, 12/28/18) celecoxib (Verified Adverse Reaction, Intermediate, gi bleed, 12/28/18) codeine (Verified Adverse Reaction, Mild, upset stomach, 12/28/18) methadone (Verified Adverse Reaction, Mild, confusion, 12/28/18) SUNSHINE CADET DO Jan 26, 2019 9:52 am
[2019-01-26] MEDS: ACETAMINOPHEN TAB 650MG DOSE (2X325MG) PO PRN ×2 (13:33→20:13)
[2019-01-26 18:00] VITALS: BP 104/65
[2019-01-26] MEDS: traZODone 50 MG TAB PO SCH (20:12)
[2019-01-26] MEDS: OLANZapine 10 MG TAB PO SCH (20:15)
[2019-01-26] MEDS: METOPROLOL SUCC *XL* 25MG TAB (TopROL *XL*) PO SCH (20:15)
[2019-01-26] MEDS: PRAVASTATIN 20 MG TAB PO SCH (20:15)
[2019-01-27] MEDS: LEVOTHYROXINE 112MCG TABLET (0.112MG) PO SCH (06:09)
[2019-01-27 06:34] VITALS: BP 96/60
[2019-01-27] MEDS: PANTOPRAZOLE 40MG TAB (PROTONIX) PO SCH (08:33)
[2019-01-27] MEDS: OLANZapine ORAL DISINTEGRATING TAB 5MG PO SCH (08:33)
[2019-01-27] MEDS: GABAPENTIN 400 MG CAP PO SCH ×2 (08:33→21:12)
[2019-01-27] MEDS: FLUoxetine 20 MG CAP PO SCH (08:33)
[2019-01-27] MEDS: OYSTER SHELL CALCIUM 500 MG TAB PO SCH ×2 (08:34→21:12)
[2019-01-27] MEDS: PILL CUTTER 1 EACH XX PRN (08:34)
[2019-01-27] MEDS: cloNIDine 0.1 MG TAB PO SCH (08:34)
[2019-01-27] MEDS: VITAMIN D (CHOLECALCIFEROL) 400 INTERNATIONAL UNITS TAB PO SCH ×2 (08:34→21:14)
[2019-01-27] MEDS: oxyBUTYnin *DITROPAN XL* 5 MG TABCR PO SCH (08:34)
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
[2019-01-27 18:00] VITALS: BP 116/75
[2019-01-27] MEDS: OLANZapine 10 MG TAB PO SCH (21:12)
[2019-01-27] MEDS: METOPROLOL SUCC *XL* 25MG TAB (TopROL *XL*) PO SCH (21:14)
[2019-01-27] MEDS: traZODone 50 MG TAB PO SCH (21:14)
[2019-01-27] MEDS: PRAVASTATIN 20 MG TAB PO SCH (21:15)
[2019-01-28] MEDS: LEVOTHYROXINE 112MCG TABLET (0.112MG) PO SCH (06:02)
[2019-01-28 06:32] VITALS: BP 130/83
[2019-01-28] MEDS: GABAPENTIN 400 MG CAP PO SCH (09:05)
[2019-01-28] MEDS: VITAMIN D (CHOLECALCIFEROL) 400 INTERNATIONAL UNITS TAB PO SCH (09:05)
[2019-01-28] MEDS: PANTOPRAZOLE 40MG TAB (PROTONIX) PO SCH (09:05)
[2019-01-28 09:06] VITALS: BP 124/85
[2019-01-28] MEDS: FLUoxetine 20 MG CAP PO SCH (09:06)
[2019-01-28] MEDS: OLANZapine ORAL DISINTEGRATING TAB 5MG PO SCH (09:06)
[2019-01-28] MEDS: cloNIDine 0.1 MG TAB PO SCH (09:06)
[2019-01-28] MEDS: OYSTER SHELL CALCIUM 500 MG TAB PO SCH (09:06)
[2019-01-28] MEDS: oxyBUTYnin *DITROPAN XL* 5 MG TABCR PO SCH (09:06)
[2019-01-28] MEDS ORDERED: TRAZ-252 PO (09:25)
[2019-01-28] MEDS ORDERED: GABA-845 PO (09:25)
[2019-01-28] MEDS ORDERED: HYDRO50TAB PO (09:25)
[2019-01-28] MEDS ORDERED: OLAN10TA2 PO (09:25)
[2019-01-28] MEDS ORDERED: FLUO20CA19 PO (09:25)
[2019-01-28] MEDS ORDERED: ZYPR2.5T2 PO (09:25)
[2019-01-28] MEDS ORDERED: ENSULIQ9 PO (09:27)
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
== END 2019-01-28 11:41 | disposition home or self-care (01) | DRG 885 ==
LOC: M ED 16:49 → M ED INP 01-01 12:15 → M PSY 01-01 13:29
PROVIDERS: ADMIT Psychiatry & Neurology Psychiatry; ATTEND Psychiatry & Neurology Psychiatry
DX: F33.2 Major depressive disorder, recurrent severe without psychotic features (principal); F50.00 Anorexia nervosa, unspecified; R45.851 Suicidal ideations; F43.10 Post-traumatic stress disorder, unspecified; Z79.899 Other long term (current) drug therapy; Z88.0 Allergy status to penicillin; Z88.5 Allergy status to narcotic agent; Z88.6 Allergy status to analgesic agent; Z88.8 Allergy status to other drugs, medicaments and biological substances; I10 Essential (primary) hypertension; E03.9 Hypothyroidism, unspecified; F41.9 Anxiety disorder, unspecified; M54.5 Low back pain

== ENCOUNTER → 2022-07-24 | Outpatient (CLI) | payer OTHER, MEDICAID ==
[~2022-07-24] VITALS: Ht 175.3 cm; Wt 92.1 kg
[~2022-07-24] MED LIST changes: +CLON-412 PO; +DICL1GEL3 TOP; +ENSULIQ9 PO; +FLON1SPR; +FLUO20CA22 PO; +GABA-283 PO; +HYDR1TAB33 PO; +LISI5TAB11 PO; +METO1TAB32; +METO1TAB32 PO; +NEUR300C PO; +NEXI40CA PO; +OLAN1TAB20 PO; +OLAN7.5T8 PO; -OXYB10TA; +OXYB10TA23; +OXYB10TA23 PO; +OYST500T92 PO; +PRAV80TA2 PO; +REME15TA2 PO; +SYNT112T2 PO; +TOPI50TA9 PO; +TRAZ-252 PO; +VOLT1GEL15 TOP; +ZYPR2.5T2 PO
[2022-07-24 10:40] VITALS: BP 108/79
== END ==
LOC: M PAL 10:26
PROVIDERS: ATTEND Nurse Practitioner Adult Health
DX: G89.29 Other chronic pain (principal); Z86.79 Personal history of other diseases of the circulatory system; I10 Essential (primary) hypertension; E03.9 Hypothyroidism, unspecified; E11.9 Type 2 diabetes mellitus without complications; E55.9 Vitamin D deficiency, unspecified; F17.210 Nicotine dependence, cigarettes, uncomplicated; Z88.0 Allergy status to penicillin; Z88.5 Allergy status to narcotic agent; Z88.6 Allergy status to analgesic agent; Z88.8 Allergy status to other drugs, medicaments and biological substances; Z79.899 Other long term (current) drug therapy; Z79.891 Long term (current) use of opiate analgesic

== ENCOUNTER → 2023-08-13 | Outpatient (CLI) | payer OTHER, MEDICAID ==
[~2023-08-13] VITALS: Ht 167.6 cm; Wt 97.7 kg
[~2023-08-13] MED LIST changes: +DICL100G10 TOP; -DICL1GEL3 TOP; -GABA-283 PO; +GABA-284 PO; +MIRT-84 PO; -REME15TA2 PO; +TOPI-21; +TOPI-21 PO; -TOPI50TA9; -TOPI50TA9 PO
[2023-08-13 11:43] VITALS: BP 134/94; TEMP 96.5; O2SAT 97
== END ==
LOC: M PAL 11:21
PROVIDERS: ATTEND Nurse Practitioner Adult Health
DX: G89.29 Other chronic pain (principal); M54.12 Radiculopathy, cervical region; M79.7 Fibromyalgia; M54.50 Low back pain, unspecified; Z86.79 Personal history of other diseases of the circulatory system; Z51.5 Encounter for palliative care; F17.210 Nicotine dependence, cigarettes, uncomplicated; Z88.0 Allergy status to penicillin; Z88.1 Allergy status to other antibiotic agents; Z88.5 Allergy status to narcotic agent; Z88.6 Allergy status to analgesic agent; Z88.8 Allergy status to other drugs, medicaments and biological substances; Z79.51 Long term (current) use of inhaled steroids; Z79.890 Hormone replacement therapy; Z79.891 Long term (current) use of opiate analgesic; Z79.899 Other long term (current) drug therapy